=== PATIENT | male | born 1940 | race Caucasian/White ===

== ENCOUNTER 2017-07-31 10:14 | Observation (INO) | payer MEDICARE, SELFPAY ==
[2017-07-31] VITALS (7 sets, daily range): BP systolic 133–170; BP diastolic 70–91; PULSE 63–80; RESP 16–20; TEMP 36.3–36.8; O2SAT 94–96; BMI 25.9; BMI 24.9
--- NOTE | 2017-07-31 10:21 | NURSING ---
NO LW OR POA
[2017-07-31] MEDS: morphine 8 MG/ML Syringe IM (10:54)
--- NOTE | 2017-07-31 11:03 | CT_ITS ---
STUDY: CT LUMBAR SPINE WITH CONTRAST REASON FOR EXAM: Male, 77 years old. RT HIP PAIN, HAD CORTISONE SHOT FROM PAIN MGT FRIDAY, NOW UNABLE TO WALK, HX-HTN, PARKINSONS RADIATION DOSAGE (If Supplied By Facility): CTDIvol = ( 16.10 ) mGy, DLP = ( 616.78 ) mGycm TECHNIQUE: The patient was scanned in a multi detector CT scanner. High resolution transaxial imaging was performed following the intravenous administration of 100 ml of Isovue 300 contrast material. Images were obtained from T12 to sacrum. Sagittal and coronal images were reconstructed. Individualized dose optimization techniques were used for this CT. COMPARISON: None FINDINGS: There is a mildly exaggerated lumbar lordosis. There is a levoscoliosis of the upper lumbar spine. There is grade 1 anterolisthesis at L5-S1. There is retrolisthesis at L2-3 and L1-2. There is multilevel loss of disc height and endplate spondylosis. Vertebral body heights are maintained. There is multilevel facet arthropathy. T12/L1: No central canal or neural foraminal stenosis is demonstrated. L1/2: There is retrolisthesis and endplate spondylosis. There is no central canal stenosis. There is moderate bilateral neuroforaminal stenosis. L2/3: There is retrolisthesis and endplate spondylosis. There is mild central canal stenosis and mild bilateral neuroforaminal stenosis. L3/4: There is endplate spondylosis. There is no central canal stenosis. There is moderate left and mild right neuroforaminal stenosis. L4/5: There is endplate spondylosis. There is no central canal stenosis. There is severe left and moderate to severe right neuroforaminal stenosis. L5/S1: There is anterolisthesis. There is mild central canal stenosis and severe bilateral neuroforaminal stenosis. There is a bubble of gas in the central canal posterior to the L4 superior endplate. It could be iatrogenic from recent injection, although vacuum disc phenomenon is also possible. The prostate gland is enlarged. There is suggestion of a small lipoma in the left psoas muscle. CT/Spine Lumbar WITH Contrast IMPRESSION: There is a bubble of gas in the central canal posterior to the L4 superior endplate. It could be iatrogenic from recent injection, although vacuum disc phenomenon is also possible. There are multilevel degenerative changes. MRI provides better evaluation of disc disease, if clinically indicated. Electronically Signed: Brittany Chapin MD at 12:57 EDT , Service support ,
[2017-07-31 11:27] LABS: Erythrocyte Sedimentation Rate 4 mm/hr (0-20)
[2017-07-31 11:29] LABS: Absolute Lymphocyte Count 1.08 X10^3/ul (0.83-4.51); Absolute Neutrophil Count 6.7 X10^3/uL (2.0-7.7); Eosinophil# 0.01 X10^3/uL; Eosinophils% 0.1 % (0-5); Hematocrit 41.7 % (40-54); Hemoglobin 14.5 g/dl (13.0-16.5); Lymphocyte # 1.08 X10^3/ul (4.0); Lymphocyte % 13.8 % (19-41); Mean Corp Hgb Conc 34.8 g/gl (32-36); Mean Corpuscular Hgb 31.7 pg (27.0-32.0); Monocyte# 0.01 X10^3/uL; Monocyte% 0.1 % (0-10); Neutrophil # 6.71 X10^3/uL (2.7-7.7); Platelet Count 142 K/mm3 (150-450); RBC Distribution Width CV 11.8 % (11.6-14.6); Red Blood Count 4.58 M/mm3 (4.6-6.2); White Blood Count 7.8 K/mm3 (4.4-11.0)
[2017-07-31 11:30] LABS: POSITIVE COUNT NO; POSITIVE DIFFERENTIAL NO; POSITIVE MORPHOLOGY NO
[2017-07-31 11:57] LABS: Anion Gap 9 (5-15); BUN 25 mg/dL (7-18); BUN/Creat Ratio 26.7 RATIO (10-20); CRP < 2.90 mg/L (0.0-3.0); Calcium,Total 8.6 mg/dL (8.5-10.1); Chloride 93 mmol/L (98-107); Creatinine, Serum 0.94 mg/dL (0.70-1.30); EST Glomerular Filtration Rate 83 mL/min (>60); Est Glom Filt Rate - Afr Amer 100 mL/min (>60); Estimated Creatinine Clearance 59.39 ml/min; Glucose 108 mg/dL (74-106); Potassium 3.9 mmol/L (3.5-5.1); Sodium Level 130 mmol/L (136-145)
[2017-07-31] MEDS: 0.9% Normal Saline 1,000 ML 999 ML IV (13:20)
--- NOTE | 2017-07-31 13:44 | ED.VISSUMM ---
- ER Visit Summary Date of Service: 07/31/17 Chief Complaint: Right hip and leg pain History of Present Illness: The patient is a 77 M who presents with right hip and leg pain. He does have a history of chronic back pain. He has had previous epidural injections with relief. He had an epidural injection 9 days ago. He complains of worsening pain since that time and now reports that he is unable to ambulate. He complains of paresthesias in the right leg as well as weakness. No abdominal pain. No fevers. No urinary retention or fecal incontinence. Physical Examination: Afebrile vitals are normal Heart regular rate and rhythm Lungs clear Abdomen soft nontender to palpation 5 out of 5 knee flexion knee extension dorsiflexion and plantar flexion and extensor hallucis longus he reports decreased sensation in the L4 and L5 dermatomes but is able to tell that I am touching him he has brisk capillary refills I was unable to easily palpate a dorsalis pedis pulse however he does have a strong Doppler signal for the posterior tibialis Test Results: Labs notable for sodium 130 otherwise normal CRP less than 2.9. CT of the lumbar spine shows a bubble of gas in the central canal posterior to L4 most likely iatrogenic from recent injection. Emergency Department Course and Treatment: I spoke to Dr. Weldon regarding the patient's presentation. He is not a candidate for an MRI due to his deep brain stimulator. Did obtain a CT of the lumbar spine which showed a bubble of gas in the central canal posterior to L4 which is likely related to his recent injection. We had planned to send him home on oral pain medications. At this time family did reveal that they have actually been giving him oxycodone at home. The patient was unable to ambulate even despite a reported 50% improvement with intramuscular morphine. We spoke to case management. They will be able to place the patient in rehab but he will require precertification so will need to be placed in hospital observation. Treatment Plan: [] Disposition: Admit Impression: Lumbar radiculopathy Inability to ambulate This note was generated with [employer] dictation software. It may contain incorrect words, spelling, and punctuation that were not noted in review of the chart prior to signing ED Disposition - Plan for ED Patient: Chief Complaint: Lower Extremity Injury Referrals: Margarito Mata MD [Primary Care Provider] -
--- NOTE | 2017-07-31 13:50 | CASEMGMT ---
Social Work Note Referral from Dr. Santos d/t pt's inability to ambulate and recommendation for rehab. Discuss that pt would need to be admitted under obs for placement as his insurance requires pre-cert and this will not be obtained today. Physician will discuss case with hospitalist. Face to face with the pt, his and their daughter. Pt reports a sharp pain in his hip following an injection last week. States his appetite has decreased and reports an inability to walk for 3 days and has continued into today. Nursing tried to ambulate the pt and he was not able to even move the walker to take a step d/t pain. Discuss the above information and pt and family are agreeable to consider placement if insurance would cover. Discuss that insurance requires pre-certification that is dictated by an RN reviewer at his insurance company once clinicals are submitted. Understanding expressed. Educated to RU and TCU at [facility] and their first choice is RU and second is TCU. Placed call to Rosita and left indicating this information. SW on assigned unit to f/u with discharge planning. Plan: Rehab pending acceptance and pre-cert. Lucia Reyes, [employer] MAINTENANCE, DATA CENTER ARCHITECT
--- NOTE | 2017-07-31 13:53 | NURSING ---
MED SURGE LUMBAR RADICULOPATHY FRANCOIS
--- NOTE | 2017-07-31 14:05 | HP.PCM_ITS ---
Problem List (1) Chronic back pain Status: Chronic (2) Status post deep brain stimulator placement Status: Chronic (3) Parkinsons disease Status: Chronic (4) Hypertension Status: Chronic (5) History of atrial fibrillation Status: Chronic History of Present Illness Date of Admission: 07/31/17 Chief Complaint: Right hip pain. The patient is a 77 year old M with past medical history as mentioned above presented to the emergency room because of right hip pain. He had a history of chronic back pain and he received epidural lumbar injection [address] Weldon and since then, he has been having difficulties ambulating, not able to get up and not able to walk even with using a walker. Over the last 2 days, he started having right hip pain, described as sharp shooting pain, intermittent, 8 out of 10 in severity, goes down to his right thigh and right leg, associated with minimal numbness on the right foot and without aggravating or relieving factors. He denied bowel or bladder incontinence. He did mention that his chronic back pain seemed under control but what makes his situation more difficult as the right hip pain. He denied mechanical fall or trauma. In the emergency department, his vital signs were stable. His routine blood work was remarkable for sodium of 130 and BUN of 25, otherwise normal. CT scan of the lumbar spine with contrast revealed bubbly gas in the central posterior canal of L4 superior endplate which likely due to the recent injection, multiple degenerative changes. MRI cannot be done because patient has brain stimulator. He is being admitted for intractable low back pain due to lumbar radiculopathy with the physical debility and functional decline. Past Medical History Past Medical History (Chronic Problems): Chronic Problems Chronic back pain (Chronic) Status post deep brain stimulator placement (Chronic) Parkinsons disease (Chronic) Hypertension (Chronic) History of atrial fibrillation (Chronic) Allergies No Known Allergies Allergy (Verified 07/31/17 10:22) Home Medications: Ambulatory Orders Medication Instructions Recorded Aspirin [Aspirin, Baby] 81 mg PO DAILY@0800 07/23/14 Atenolol [Tenormin] 50 mg PO BID 07/23/14 Surgical History: - - Placement of brain stimulator. Psychiatric History: No pertinent psych hx Lives: Spouse/ Significant Other Smoking Status: Never smoker Alcohol: None Drugs: None - *Family History Maternal History Items: No pertinent history Paternal History Items: No pertinent history Review of Systems Constitutional: Reports: Weakness. Denies: Anorexia, Chills, Fever Eyes: Denies: Blurred vision, Double vision, Drainage, Redness HEENT: Denies: Difficulty Hearing, Ear Pain, Eye Pain, Nasal Congestion, Sore Throat Cardiovascular: Denies: Chest Pain, Chest Pressure, Chest Tightness, Palpitations, Syncope Respiratory: Denies: Cough, Pleuritic Pain, Shortness of Breath, Sputum production, Wheezing Gastrointestinal: Denies: Abdominal Pain, Constipation, Diarrhea, Nausea, Vomiting Genitourinary: Denies: Dysuria, Frequency, Hematuria Musculoskeletal: Reports: Back Pain, Joint Pain, Leg Pain. Denies: Arm Pain, Foot Pain, Hand Pain Skin: Denies: Dryness, Rash Neurological: Reports: Numbness. Denies: Balance problems, Double vision, Change in Speech, Slurred speech, Headaches, Incoordination Psychiatric: Denies: Anxiety, Depression Endocrine: Denies: Change in Body Habitus, Polydipsia VTE Information - Inpt Only VTE Present on Admission: No VTE Mechan Device Prophylaxis: None VTE Pharm Prophylaxis ordered?: Yes - Physical Exam General: Alert, Oriented x3, Cooperative, No apparent distress, - HEENT: Atraumatic, PERRLA, EOMI, Normocephalic Oral: Moist Mucosa, No Gingival or Mucosal Lesions/ Ulcerations Neck: Supple, No JVD, Negative Carotid Bruits, Trachea Midline, Thyroid Normal Size and Texture Lungs: Clear to auscultation, No rhonchi, No wheeze, No rales, Diminished Cardiovascular: Regular rate, Regular Rhythm, Normal S1, Normal S2, PMI Normal Abdomen: Bowel Sounds Present, Soft, Non Tender, Non-Distended, No Hepato- splenomegaly Extremities: No clubbing, No cyanosis, No edema Skin: No rashes, No breakdown Lymphatic: No Cervical, Supraclavicular, or Inguinal Adenopathy Neurological: Cranial nerves II-XII grossly intact, Motor Exam 5/5 strength throughout Psych/Mental Status: Normal Affect, Appropriate, Alert and oriented to time, place, person, mood and affect Vital Signs Temp Pulse Resp BP Pulse Ox 97.3 F L 71 16 170/91 H 96 07/31/17 10:15 07/31/17 13:19 07/31/17 13:19 07/31/17 13:19 07/31/17 10:15 Oxygen Delivery Method Room Air Weight: 161 lb 2.526 oz Body Mass Index (BMI) 25.9 Laboratory Tests Past 24 Hrs 07/31/17 07/31/17 11:15 11:15 WBC 7.8 RBC 4.58 L Hgb 14.5 Hct 41.7 MCV 91.0 MCH 31.7 MCHC 34.8 RDW 11.8 RDW Differential 39.0 Plt Count 142 L MPV 10.0 Immature Gran % (Auto) 0.000 Neut % (Auto) 86.0 H Lymph % (Auto) 13.8 L [place] % (Auto) 0.1 Eos % (Auto) 0.1 Baso % (Auto) 0.0 Absolute Neuts (auto) 6.7 Absolute Lymphs (auto) 1.08 Total Counted Not Reportable ESR 4 Sodium 130 L Potassium 3.9 Chloride 93 L Carbon Dioxide 28.0 Anion Gap 9 BUN 25 H Creatinine 0.94 Estim Creat Clear Calc 59.39 Est GFR (MDRD) Af Amer 100 Est GFR (MDRD) Non-Af 83 BUN/Creatinine Ratio 26.7 H Glucose 108 H Calcium 8.6 C-React Prot Ext Range < 2.90 Clinical Impression(s) from Imaging Studies Lumbar Spine CT 07/31/17 11:03 IMPRESSION: There is a bubble of gas in the central canal posterior to the L4 superior endplate. It could be iatrogenic from recent injection, although vacuum disc phenomenon is also possible. There are multilevel degenerative changes. MRI provides better evaluation of disc disease, if clinically indicated. Electronically Signed: Brittany Chapin MD at 12:57 EDT , Service support , Assessment/Plan This is a 77 years old male patient presented to the emergency room because of right hip pain as well as chronic back pain, difficulty ambulating and functional decline, found to have multilevel degenerative changes of the lumbar spine as well as lumbar radiculopathy and he is being admitted for intractable low back pain due to lumbar radiculopathy complicated by difficulty ambulating and functional decline. #1 right hip pain/lumbar radiculopathy/chronic back pain: CT scan of the lumbar spine reviewed as above. No comment on the right hip region. This patient has history of chronic back pain, received epidural steroid injection 9 days ago. He received his first epidural injection back in April, and he did mention that helped his pain significantly but this time with the recent injection, it is not helping and the pain is worsening. MRI lumbar spine cannot be done because he has brain stimulator. He does have some numbness on the right foot but no focal motor deficit and this is chronic. [facility], cardiac monitoring, ambulate as tolerated, IV morphine as needed for pain, OxyIR as needed for pain, x-ray right hip, repeat BMP tomorrow morning, PT OT evaluation and treatment, social services aide and case management consult for probable placement to senior living facility. #2 hyponatremia: Seems to be hypovolemic hyponatremia due to mild dehydration as indicated by slightly elevated BUN. Plan: We will check plasma osmolality, urine is blood, urine sodium and chloride, IV fluids, repeat BMP tomorrow morning. #3 history of atrial fibrillation: Status post ablation ?2, is in sinus rhythm, rate is controlled. Plan to continue atenolol for rate control, he is not on anticoagulation. #4 Parkinson's disease: Status post placement of deep brain stimulator on the right side. #5 hypertension: Blood pressure stable, continue atenolol and aspirin. #6 DVT prophylaxis: Subcu Lovenox. This note was generated with [employer] dictation software. It may contain incorrect words, spelling, and punctuation that were not noted in checking the note before signing. Code Visit Inpatient E&M: 71641 Init Hosp L3
--- NOTE | 2017-07-31 14:05 | NURSING ---
306 INTRACTABLE LOW BACK PAIN, DIFFICULTY AMBULATING, PHYSICAL DEBILITY ASHELFAH
--- NOTE | 2017-07-31 14:56 | RAD_ITS ---
STUDY: X-RAY - PELVIS AND RIGHT HIP REASON FOR EXAM: Male, 77 years old. Pain, hip and lower back pain. TECHNIQUE: Radiological exam, hip, unilateral, with pelvis when performed; 2 or 3 views. COMPARISON: None. FINDINGS: There is a non-specific bowel gas pattern. Normal visualized soft tissue structures. There is narrowing with cortical sclerosis of the sacroiliac joint consistent with degenerative osteoarthritic changes. Normal bilateral superior and inferior pubic rami. There is narrowing with sclerosis of the pubic symphysis. There are degenerative changes of the hips bilaterally. RAD/Hip 2-3 Views with Pelvis IMPRESSION: Degenerative changes. Electronically Signed: Meme Isaacs MD at 15:44 EDT Tel , Service support ,
[2017-07-31] MEDS: 0.9% NaCl Peripheral Flush Adult/Peds IV (16:13)
[2017-07-31] MEDS: 0.9% Normal Saline 1,000 ML 100 ML IV (16:13)
[2017-07-31 17:01] LABS: Urine Sodium 88 mmol/L (Not Establ.)
[2017-07-31 17:12] LABS: Urine Chloride 84 mmol/L (Not Establ.)
[2017-07-31 18:03] LABS: Osmolality, Urine 402 mOsm/KG
[2017-07-31 19:36] LABS: Osmolality, Serum 274 mOsm/KG (280-301)
[2017-07-31] MEDS: Docusate Sodium 100 MG Capsule PO (23:21)
[2017-07-31] MEDS: Atenolol 25 MG Tablet 50 MG PO (23:21)
[2017-07-31] MEDS: Carbidopa/Levodopa 25/100 Tablet PO (23:22)
[2017-07-31] MEDS: Doxazosin 1 MG Tablet 2 MG PO (23:22)
[2017-08-01] VITALS (13 sets, daily range): BP systolic 126–148; BP diastolic 73–84; PULSE 57–67; RESP 18; TEMP 36.6–37.1; O2SAT 93–98
[2017-08-01 06:00] LABS: Absolute Lymphocyte Count 0.86 X10^3/ul (0.83-4.51); Absolute Neutrophil Count 4.4 X10^3/uL (2.0-7.7); Basophil# 0.01 X10^3/uL; Basophil% 0.2 % (0-1); Eosinophil# 0.02 X10^3/uL; Eosinophils% 0.3 % (0-5); Hematocrit 40.2 % (40-54); Hemoglobin 13.7 g/dl (13.0-16.5); Lymphocyte # 0.86 X10^3/ul (4.0); Lymphocyte % 14.4 % (19-41); Mean Corp Hgb Conc 34.1 g/gl (32-36); Mean Corpuscular Hgb 31.6 pg (27.0-32.0); Mean Corpuscular Volume 92.6 fL (80-94); Mean Platelet Vol. 9.8 fl (6.2-12.0); Monocyte# 0.69 X10^3/uL; Monocyte% 11.5 % (0-10); Neutrophil % 73.4 % (47-70); Platelet Count 147 K/mm3 (150-450); RBC Distribution Width CV 11.9 % (11.6-14.6); RBC Distribution Width SD 40.9 fl (35.1-43.9); Red Blood Count 4.34 M/mm3 (4.6-6.2)
[2017-08-01 06:08] LABS: POSITIVE COUNT NO; POSITIVE DIFFERENTIAL NO; POSITIVE MORPHOLOGY NO
[2017-08-01] MEDS: Carbidopa/Levodopa 25/100 Tablet PO ×3 (06:23→16:34)
[2017-08-01 06:24] LABS: Anion Gap 5 (5-15); BUN 21 mg/dL (7-18); BUN/Creat Ratio 23.1 RATIO (10-20); Calcium,Total 8.2 mg/dL (8.5-10.1); Chloride 98 mmol/L (98-107); Creatinine, Serum 0.91 mg/dL (0.70-1.30); EST Glomerular Filtration Rate 86 mL/min (>60); Est Glom Filt Rate - Afr Amer 104 mL/min (>60); Estimated Creatinine Clearance 61.35 ml/min; Glucose 88 mg/dL (74-106); Sodium Level 131 mmol/L (136-145)
[2017-08-01] MEDS: Aspirin 81 MG TAB.CHEW PO (07:57)
[2017-08-01] MEDS: Docusate Sodium 100 MG Capsule PO (10:38)
[2017-08-01] MEDS: Atenolol 25 MG Tablet 50 MG PO ×2 (10:38→21:50)
[2017-08-01] MEDS: Enoxaparin 40 MG/0.4 ML Syringe SC (10:39)
--- NOTE | 2017-08-01 12:25 | CASEMGMT ---
Social Work Note BOOM placed a call to Rosita with inpatient rehab/TCU. Rosita confirms that she got the referral and will discuss the case with Dr. Busby. Rosita states that she will let this worker know what Dr. Busby with inpatient rehab decides if they are able to accept pt or not. Rosita states that if Dr. Busby is unable to accept pt, then she will submit pre-cert for TCU. BOOM will continue to follow along and assist with discharge planning. Plan: Inpatient rehab vs. TCU Brit Kline RADIOLOGY SUPERVISOR, CREW BOAT OPERATOR
[2017-08-01] MEDS: oxyCODONE 5 MG Tablet PO (14:29)
--- NOTE | 2017-08-01 15:03 | CASEMGMT ---
BYERS form completed with patient at this time. Patient voiced no questions or concerns at this time and voiced understanding. Patient signed BYERS form and copy provided along with Medicare Inpatient vs Outpatient information packet. Original BYERS filed on chart.
--- NOTE | 2017-08-01 16:03 | PCM.PN.HOSP ---
Subjective: Patient was seen and examined. He complains of pain radiating from his buttocks down his legs. Admits to having had low back injection by Dr. Weldon about a week ago. Denies any fever or chills. Unable to have MRI because of his brain stimulator. Vitals/I&O's: Vital Signs Temp Pulse Resp BP Pulse Ox 98.6 F 67 18 139/79 H 98 08/01/17 07:56 08/01/17 14:00 08/01/17 07:56 08/01/17 07:56 08/01/17 07:56 Oxygen Delivery Method Room Air Weight: 70.1 kg Body Mass Index (BMI) 24.9 Intake and Output for Last 24 Hours 07/30/17 07/31/17 08/01/17 23:59 23:59 23:59 Intake Total 2372 / 2372 Output Total 300 / 300 1325 / 1325 Balance -300 / -300 1047 / 1047 General: Alert, Oriented x3, Cooperative, No apparent distress HEENT: Atraumatic, PERRLA, EOMI, Normocephalic Oral: Moist Mucosa Neck: Supple Lungs: Clear to auscultation, Normal air movement Cardiovascular: Regular rate, Regular Rhythm, Normal S1, Normal S2, No murmurs Abdomen: Bowel Sounds Present, Soft, Non Tender, Non-Distended, No Hepato-splenomegaly Extremities: No edema Skin: No rashes, No breakdown Musculoskeletal: No Tenderness to Palpation of Joints or Extremities Lymphatic: No Cervical, Supraclavicular, or Inguinal Adenopathy Neurological: Cranial nerves II-XII grossly intact, Motor Exam 5/5 strength throughout Psych/Mental Status: Normal Affect, Appropriate Laboratory Results 07/31/17 16:30: Urine Osmolality 402 07/31/17 16:30: Urine Creatinine 35.90 07/31/17 16:30: Urine Chloride 84 07/31/17 16:30: Ur Random Sodium 88 07/31/17 18:03: Serum Osmolality 274 L 08/01/17 05:30: WBC 6.0, RBC 4.34 L, Hgb 13.7, Hct 40.2, MCV 92.6, MCH 31.6, MCHC 34.1, RDW 11.9, RDW Differential 40.9, Plt Count 147 L, MPV 9.8, Immature Gran % (Auto) 0.200, Neut % (Auto) 73.4 H, Lymph % (Auto) 14.4 L, [place] % (Auto) 11.5 H, Eos % (Auto) 0.3, Baso % (Auto) 0.2, Absolute Neuts (auto) 4.4, Absolute Lymphs (auto) 0.86, Total Counted Not Reportable 08/01/17 05:30: Sodium 131 L, Potassium 4.0, Chloride 98, Carbon Dioxide 28.0, Anion Gap 5, BUN 21 H, Creatinine 0.91, Estim Creat Clear Calc 61.35, Est GFR (MDRD) Af Amer 104, Est GFR (MDRD) Non-Af 86, BUN/Creatinine Ratio 23.1 H, Glucose 88, Calcium 8.2 L Current Medications Aspirin (Aspirin, Baby) 81 mg PO DAILY@0800 [facility] Last Admin: 08/01/17 07:57 Dose: 81 mg Atenolol (Tenormin (Beta Ebenezer)) 50 mg PO BID [facility] Last Admin: 08/01/17 10:38 Dose: 50 mg Carbidopa/Levodopa (Sinemet) 1 tablet PO TIDAC [facility] Last Admin: 08/01/17 11:57 Dose: 1 tablet Docusate Sodium (Colace) 100 mg PO BID [facility] Last Admin: 08/01/17 10:38 Dose: 100 mg Doxazosin Mesylate (Cardura) 2 mg PO QHS [facility] Last Admin: 07/31/17 23:22 Dose: 2 mg Enoxaparin Sodium (Lovenox) 40 mg SC DAILY@1000 [facility] Last Admin: 08/01/17 10:39 Dose: 40 mg Magnesium Hydroxide (Milk Of Magnesia) 30 ml PO DAILY PRN PRN PRN Reason: Constipation Magnesium Hydroxide (Milk Of Magnesia) 30 ml PO BID PRN PRN Reason: Constipation Morphine Sulfate () 1 - 2 mg IV Q4H PRN PRN PRN Reason: SEVERE PAIN (6-10/10) Non-Formulary Medication (Parsitan) 1 tab PO TID [facility] Last Admin: 08/01/17 13:27 Dose: 1 tab Oxycodone HCl (Oxyir) 5 mg PO Q6H PRN PRN PRN Reason: SEVERE PAIN (6-10/10) Last Admin: 08/01/17 14:29 Dose: 5 mg Senna/Docusate Sodium (Senokot-S, Josie-Colace) 2 tablet PO BID PRN PRN Reason: Constipation Sodium Chloride () 5 - 30 ml IV UD PRN PRN Reason: SALINE FLUSH Last Admin: 07/31/17 16:13 Dose: 10 ml Medical Necessity - Tobacco Use Smoking Status: Never smoker Assessment/Plan 77 years old male with past medical history of chronic back pain, follows with Dr. Weldon in the outpatient, admitted with right hip pain as well as acute on chronic back pain, difficulty ambulating and functional decline, found to have multilevel degenerative changes of the lumbar spine as well as lumbar radiculopathy and he is being admitted for intractable low back pain due to lumbar radiculopathy complicated by difficulty ambulating and functional decline. 1. Intractable right hip pain/lumbar radiculopathy/chronic back pain, CT of the lumbar spine showed multilevel degenerative changes, patient is on oxycodone, will continue on the same medications, will continue PT and OT evaluation, will add neurontin 100mg po tid 2. hyponatremia, hypotonic, likely hypovolemic hyponatremia, mildly improved, no previous sodium to compare, urine osmolality is 402, random urine sodium is 88, will continue to monitor BMP, if sodium does not improve much, will check for a.m. cortisol and ACTH stimulation test. 3. PAF, normal sinus rhythm, not on anticoagulation, status post ablation ?2, continue on atenolol 4. Parkinson's disease, status post placement of deep brain stimulator on the right side, on Sinemet. 5. Hypertension, controlled, continue atenolol and aspirin. 6. DVT prophylaxis: Subcu Lovenox. Code Visit Inpatient E&M: 37924 Subs Hosp L2
[2017-08-01] MEDS: Gabapentin 100 MG Capsule PO (17:45)
[2017-08-01] MEDS: Doxazosin 1 MG Tablet 2 MG PO (21:50)
[2017-08-02] VITALS (13 sets, daily range): BP systolic 121–161; BP diastolic 61–88; PULSE 51–74; RESP 16–20; TEMP 36.5–37.1; O2SAT 96–99
[2017-08-02] MEDS: Carbidopa/Levodopa 25/100 Tablet PO ×3 (06:22→18:08)
[2017-08-02] MEDS: oxyCODONE 5 MG Tablet PO ×2 (08:22→18:07)
[2017-08-02] MEDS: Aspirin 81 MG TAB.CHEW PO (08:23)
[2017-08-02] MEDS: Gabapentin 100 MG Capsule PO ×3 (08:23→18:09)
[2017-08-02] MEDS: Docusate Sodium 100 MG Capsule PO ×2 (08:24→20:43)
[2017-08-02] MEDS: Enoxaparin 40 MG/0.4 ML Syringe SC (08:24)
--- NOTE | 2017-08-02 08:43 | PCM.PN.HOSP ---
Subjective: Patient was seen and examined. Pain is present but slightly better. Waiting on transfer to SNF. Denies any fever or chills or dizziness Objective: Physical exam: Vitals/I&O's: Vital Signs Temp Pulse Resp BP Pulse Ox 98.7 F 56 L 20 H 130/79 H 99 08/02/17 08:26 08/02/17 08:26 08/02/17 08:26 08/02/17 08:26 08/02/17 08:26 Oxygen Delivery Method Room Air Weight: 70.1 kg Body Mass Index (BMI) 24.9 Intake and Output for Last 24 Hours 07/31/17 08/01/17 08/02/17 23:59 23:59 23:59 Intake Total 2922 / 2922 240 / 240 Output Total 300 / 300 1325 / 1325 Balance -300 / -300 1597 / 1597 240 / 240 Current Medications Aspirin (Aspirin, Baby) 81 mg PO DAILY@0800 [facility] Last Admin: 08/02/17 08:23 Dose: 81 mg Atenolol (Tenormin (Beta Ebenezer)) 50 mg PO BID [facility] Last Admin: 08/01/17 21:50 Dose: 50 mg Carbidopa/Levodopa (Sinemet) 1 tablet PO TIDAC [facility] Last Admin: 08/02/17 06:22 Dose: 1 tablet Docusate Sodium (Colace) 100 mg PO BID [facility] Last Admin: 08/02/17 08:24 Dose: 100 mg Doxazosin Mesylate (Cardura) 2 mg PO QHS [facility] Last Admin: 08/01/17 21:50 Dose: 2 mg Enoxaparin Sodium (Lovenox) 40 mg SC DAILY@1000 [facility] Last Admin: 08/02/17 08:24 Dose: 40 mg Gabapentin (Neurontin) 100 mg PO TIDCM [facility] Last Admin: 08/02/17 08:23 Dose: 100 mg Magnesium Hydroxide (Milk Of Magnesia) 30 ml PO DAILY PRN PRN PRN Reason: Constipation Magnesium Hydroxide (Milk Of Magnesia) 30 ml PO BID PRN PRN Reason: Constipation Morphine Sulfate () 1 - 2 mg IV Q4H PRN PRN PRN Reason: SEVERE PAIN (6-10/10) Non-Formulary Medication (Parsitan) 1 tab PO TID [facility] Last Admin: 08/02/17 06:22 Dose: 1 tab Oxycodone HCl (Oxyir) 5 mg PO Q6H PRN PRN PRN Reason: SEVERE PAIN (6-10/10) Last Admin: 08/02/17 08:22 Dose: 5 mg Senna/Docusate Sodium (Senokot-S, Josie-Colace) 2 tablet PO BID PRN PRN Reason: Constipation Sodium Chloride () 5 - 30 ml IV UD PRN PRN Reason: SALINE FLUSH Last Admin: 07/31/17 16:13 Dose: 10 ml Medical Necessity - Tobacco Use Smoking Status: Never smoker Assessment/Plan 77 years old male with past medical history of chronic back pain, follows with Dr. Weldon in the outpatient, admitted with right hip pain as well as acute on chronic back pain, difficulty ambulating and functional decline, found to have multilevel degenerative changes of the lumbar spine as well as lumbar radiculopathy and he is being admitted for intractable low back pain due to lumbar radiculopathy complicated by difficulty ambulating and functional decline. 1. Intractable right hip pain/lumbar radiculopathy/chronic back pain, CT of the lumbar spine showed multilevel degenerative changes, Pain is fairly controlled, on oxycodone and neurontin 100mg po tid. 2. Hyponatremia, hypotonic, likely hypovolemic hyponatremia, improved, will continue to monitor. 3. PAF, normal sinus rhythm, not on anticoagulation, status post ablation ?2, on atenolol, will continue to monitor. 4. Parkinson's disease, status post placement of deep brain stimulator on the right side, on Sinemet. 5. Hypertension, controlled, continue atenolol and aspirin. 6. DVT prophylaxis -Subcu Lovenox. Code Visit Inpatient E&M: 81764 Subs Hosp L2
[2017-08-02 09:43] LABS: Anion Gap 4 (5-15); BUN 23 mg/dL (7-18); BUN/Creat Ratio 25.1 RATIO (10-20); Calcium,Total 8.8 mg/dL (8.5-10.1); Chloride 99 mmol/L (98-107); Creatinine, Serum 0.92 mg/dL (0.70-1.30); EST Glomerular Filtration Rate 85 mL/min (>60); Est Glom Filt Rate - Afr Amer 103 mL/min (>60); Estimated Creatinine Clearance 60.68 ml/min; Glucose 102 mg/dL (74-106); Potassium 3.8 mmol/L (3.5-5.1); Sodium Level 132 mmol/L (136-145)
[2017-08-02] MEDS: Atenolol 25 MG Tablet 50 MG PO ×2 (12:32→20:43)
[2017-08-02] MEDS: Doxazosin 1 MG Tablet 2 MG PO (20:43)
[2017-08-03] VITALS (10 sets, daily range): BP systolic 125–154; BP diastolic 63–89; PULSE 54–72; RESP 16–20; TEMP 36.6–36.9; O2SAT 92–98
[2017-08-03] MEDS: oxyCODONE 5 MG Tablet PO ×3 (03:32→22:12)
[2017-08-03] MEDS: Carbidopa/Levodopa 25/100 Tablet PO ×3 (06:32→16:52)
[2017-08-03 07:05] LABS: Anion Gap 9 (5-15); BUN 24 mg/dL (7-18); BUN/Creat Ratio 23.3 RATIO (10-20); Calcium,Total 8.4 mg/dL (8.5-10.1); Chloride 102 mmol/L (98-107); Creatinine, Serum 1.03 mg/dL (0.70-1.30); EST Glomerular Filtration Rate 74 mL/min (>60); Est Glom Filt Rate - Afr Amer 90 mL/min (>60); Glucose 108 mg/dL (74-106); Potassium 3.8 mmol/L (3.5-5.1); Sodium Level 138 mmol/L (136-145)
[2017-08-03] MEDS: Enoxaparin 40 MG/0.4 ML Syringe SC (10:18)
[2017-08-03] MEDS: Aspirin 81 MG TAB.CHEW PO (10:18)
[2017-08-03] MEDS: morphine SR 15 MG Tablet PO ×2 (10:18→20:46)
[2017-08-03] MEDS: Atenolol 25 MG Tablet 50 MG PO ×2 (10:20→20:45)
[2017-08-03] MEDS: Senna/Docusate Sodium 1 Tablet 2 TABLET PO (10:20)
[2017-08-03] MEDS: Gabapentin 300 MG Capsule PO ×2 (10:21→16:52)
--- NOTE | 2017-08-03 14:12 | PN_ITS ---
Subjective: Patient was seen and examined. Still complains of severe pain. Recently been given some pain medicines. Pain still shoots from his hip down the legs. Denies any fever or chills. Moved his bowels 2 days ago. Feels to move his bowels today to. Denies any nausea or vomiting Objective: Physical exam: General: Alert, Oriented x3, Cooperative, No apparent distress HEENT: Atraumatic, PERRLA, EOMI, Normocephalic Oral: Moist Mucosa Neck: Supple Lungs: Clear to auscultation, Normal air movement Cardiovascular: Regular rate, Regular Rhythm, Normal S1, Normal S2, No murmurs Abdomen: Bowel Sounds Present, Soft, Non Tender, Non-Distended, No Hepato- splenomegaly Extremities: No edema Skin: No rashes, No breakdown Musculoskeletal: No Tenderness to Palpation of Joints or Extremities Lymphatic: No Cervical, Supraclavicular, or Inguinal Adenopathy Neurological: Cranial nerves II-XII grossly intact, Motor Exam 5/5 strength throughout, coarse tremors of the left upper extremity Psych/Mental Status: Normal Affect, Appropriate Vitals/I&O's: Vital Signs Temp Pulse Resp BP Pulse Ox 98.2 F 65 18 154/89 H 97 08/03/17 10:22 08/03/17 10:22 08/03/17 10:22 08/03/17 10:22 08/03/17 10:22 Oxygen Delivery Method Room Air Weight: 70.1 kg Body Mass Index (BMI) 24.9 Intake and Output for Last 24 Hours 08/01/17 08/02/17 08/03/17 23:59 23:59 23:59 Intake Total 2922 / 2922 540 / 540 300 / 300 Output Total 1325 / 1325 200 / 200 300 / 300 Balance 1597 / 1597 340 / 340 0 / 0 Laboratory Results 08/03/17 05:23: Sodium 138, Potassium 3.8, Chloride 102, Carbon Dioxide 27.0, Anion Gap 9, BUN 24 H, Creatinine 1.03, Estim Creat Clear Calc 54.20, Est GFR ( MDRD) Af Amer 90, Est GFR (MDRD) Non-Af 74, BUN/Creatinine Ratio 23.3 H, Glucose 108 H, Calcium 8.4 L Current Medications Aspirin (Aspirin, Baby) 81 mg PO DAILY@0800 [facility] Last Admin: 08/03/17 10:18 Dose: 81 mg Atenolol (Tenormin (Beta Ebenezer)) 50 mg PO BID [facility] Last Admin: 08/03/17 10:20 Dose: 50 mg Carbidopa/Levodopa (Sinemet) 1 tablet PO TIDAC [facility] Last Admin: 08/03/17 12:56 Dose: 1 tablet Doxazosin Mesylate (Cardura) 2 mg PO QHS [facility] Last Admin: 08/02/17 20:43 Dose: 2 mg Enoxaparin Sodium (Lovenox) 40 mg SC DAILY@1000 [facility] Last Admin: 08/03/17 10:18 Dose: 40 mg Gabapentin (Neurontin) 300 mg PO TIDCM [facility] Last Admin: 08/03/17 10:21 Dose: 300 mg Magnesium Hydroxide (Milk Of Magnesia) 30 ml PO BID PRN PRN Reason: Constipation Morphine Sulfate (Ms Contin) 15 mg PO BID [facility] Last Admin: 08/03/17 10:18 Dose: 15 mg Morphine Sulfate () 1 mg IV Q4H PRN PRN PRN Reason: SEVERE PAIN (6-10/10) Non-Formulary Medication (Parsitan) 1 tab PO TID [facility] Last Admin: 08/03/17 12:56 Dose: 1 tab Oxycodone HCl (Oxyir) 5 mg PO Q6H PRN PRN PRN Reason: SEVERE PAIN (6-10/10) Last Admin: 08/03/17 10:20 Dose: 5 mg Polyethylene Glycol (Miralax) 17 gm PO DAILY PRN PRN Reason: Constipation Senna/Docusate Sodium (Senokot-S, Josie-Colace) 2 tablet PO BID PRN PRN Reason: Constipation Last Admin: 08/03/17 10:20 Dose: 2 tablet Sodium Chloride () 5 - 30 ml IV UD PRN PRN Reason: SALINE FLUSH Last Admin: 07/31/17 16:13 Dose: 10 ml Medical Necessity - Tobacco Use Smoking Status: Never smoker Assessment/Plan 77 years old male with past medical history of chronic back pain, follows with Dr. Weldon in the outpatient, admitted with right hip pain as well as acute on chronic back pain, difficulty ambulating and functional decline, found to have multi-level degenerative changes of the lumbar spine as well as lumbar radiculopathy. functional decline. 1. Intractable right hip pain/lumbar radiculopathy/chronic back pain, very mildly improving, on oxycodone and neurontin 100mg po tid. Recently had an epidural injection by Dr. Weldon. Dr. Weldon consulted. CT of the lumbar spine showed multilevel degenerative changes, cannot do an MRI because patient has a brain stimulator. Would add long-acting oxycodone; MS Contin 50 mg p.o. twice daily and continue with as needed oxycodone, increase gabapentin to 300mg po tid, add prophylactic stool softeners. 2. Hyponatremia, hypotonic, likely hypovolemic hyponatremia, resolved 3. PAF, normal sinus rhythm, not on anticoagulation, status post ablation ?2, on atenolol, will continue to monitor. 4. Parkinson's disease, status post placement of deep brain stimulator on the right side, on Sinemet. 5. Hypertension, controlled, continue atenolol and aspirin. 6. DVT prophylaxis -Subcu Lovenox. 7. Disposition: DC to SNF when bed is ready Code Visit Inpatient E&M: 03946 Subs Hosp L2
[2017-08-03] MEDS: Doxazosin 1 MG Tablet 2 MG PO (20:45)
[2017-08-04] VITALS (13 sets, daily range): BP systolic 106–172; BP diastolic 61–95; PULSE 22–79; RESP 16–18; TEMP 36.4–37.1; O2SAT 94–98
--- NOTE | 2017-08-04 00:20 | NURSING ---
Tele alarming, HR 22. Pt sleeping at this time. When pt was woke up heart rate went to 52. Vitals obtained and charted. Dr. Putnam notifed, ordered to hold all pain, BP and heart medication at this time.
[2017-08-04] MEDS: Carbidopa/Levodopa 25/100 Tablet PO ×3 (06:31→16:50)
[2017-08-04] MEDS: Aspirin 81 MG TAB.CHEW PO (08:14)
[2017-08-04] MEDS: Senna/Docusate Sodium 1 Tablet 2 TABLET PO (08:14)
[2017-08-04] MEDS: Gabapentin 300 MG Capsule PO ×3 (08:18→16:50)
--- NOTE | 2017-08-04 09:34 | CASEMGMT ---
Social Work Note SW placed a call to Rosita in TCU and left her a message asking for update in regards to pt for placement. BOOM waiting for call back from Rosita. Plan: Inpatient rehab vs. TCU Brit Kline MSW, GROUP CHIEF OPERATOR
--- NOTE | 2017-08-04 10:05 | CASEMGMT ---
Social Work Note SW received message from Rosita in TCU stating that pt was denied for inpatient rehab and that she will submit pre-cert for TCU. Plan: TCU pending pre-cert Brit BENTLEY, COMMISSARY SUPERINTENDENT
[2017-08-04] MEDS: Enoxaparin 40 MG/0.4 ML Syringe SC (11:34)
--- NOTE | 2017-08-04 13:45 | PN_ITS ---
Subjective: Patient is a 77-year-old male who was admitted to [facility] with a complaint of intractable right leg pain. He had a recent Epidural by Dr. Weldon chronic low back pain and states that the severe pain started approximately 1 hour after the epidural. The pain is tolerable when lying in bed and when sitting however with weightbearing it becomes severe. He has no weakness in the right leg. He denies any symptoms in the left leg. A CT scan of the lumbar spine showed a bubble of gas in the central canal posterior to the L4 superior endplate. This is likely iatrogenic from recent epidural however it may also be due to vacuum disc phenomenon. There are multilevel degenerative changes. He is unable to have an MRI due to an implanted stimulator to treat his Parkinson's disease. He is currently on Gabapentin 300 mg TID and MS Contin 15 mg BID ands also Oxycodone for breakthrough pain and he does not feel he is significantly better. Last night he had SB while sleeping and at one point the HR dropped into the 30' s....he was sleeping at the time and when he was awoken the HR increased and he was asymptomatic. He is on atenolol for a hx of AF ( has had 2 ablations in the past). He is also on Cardura which can cause bradycardia. He has been afebrile since admission and white blood cell count is within normal limits. - Physical Exam General: Alert, Oriented x3, Cooperative, Well developed, Well nourished HEENT: Atraumatic, PERRLA, EOMI Oral: Moist Mucosa Neck: Supple, No Nodes, Trachea Midline Lungs: Clear to auscultation, Normal air movement Cardiovascular: Regular rate, Regular Rhythm, Normal S1, Normal S2, No Gallop Abdomen: Bowel Sounds Present, Soft, Non Tender, Non-Distended Extremities: No clubbing, No cyanosis, No edema, No Calf Tenderness Skin: No rashes Neurological: Cranial nerves II-XII grossly intact, - - The strength in the RLE is 5/5 but the strength in the LLE is decreased and he states this is chronic and is related to the PD. No facial aymmetry. Psych/Mental Status: Normal Affect, Appropriate Vital Signs Temp Pulse Resp BP Pulse Ox 98.8 F 61 18 159/83 H 94 08/04/17 07:33 08/04/17 10:00 08/04/17 07:33 08/04/17 07:33 08/04/17 07:33 Oxygen Delivery Method Room Air Weight: 154 lb 8.705 oz Body Mass Index (BMI) 24.9 Intake and Output for Last 24 Hours 08/02/17 08/03/17 08/04/17 23:59 23:59 23:59 Intake Total 540 / 540 300 / 300 Output Total 200 / 200 300 / 300 Balance 340 / 340 0 / 0 Medical Necessity - Tobacco Use Smoking Status: Never smoker Assessment/Plan Impressions 1. radiculitis RLE 2. bradycardia - likely related to Atenolol + Cardura. 3. 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 Hypertension 6. History of paroxysmal atrial fibrillation-status post ablation in the past Discontinue Cardura Start prednisone 60 mg p.o. daily Await the consult by Dr. Dr. Weldon possibly SNF at [place] if he does not improve in the next 24-48H Continue to monitor on telemetry Code Visit Inpatient E&M: 77330 Subs Hosp L2
--- NOTE | 2017-08-04 13:51 | CASEMGMT ---
Addendum entered by Brit Kline 08/04/17 15:26: SW in to update pt of pre-cert being obtained and pt's present in room. SW informed pt and pt's that pt's insurance has denied him to go to inpatient rehab unit but has approved for him to go to TCU. SW explained to pt and his that once the doctor feels pt is medically cleared pt will be discharged to TCU for rehabilitation. Pt and pt's states understanding. Original Note: Social Work Note SW received call from Rosita in TCU stating that pre-cert has been obtained for TCU. RN MEGHAN Andrews updated Dr. Gibson of this. Dr. Gibson stated that pt could possibly be discharged tomorrow. BOOM placed a call to Rosita in TCU and left her a message updating her that Dr. Gibson had mentioned possible discharge tomorrow. Plan: TCU tomorrow Brit Kline PLANT CULTURE MANAGER, SENIOR OFFICER
[2017-08-04] MEDS: predniSONE 20 MG Tablet 60 MG PO (14:57)
[2017-08-04] MEDS: Atenolol 25 MG Tablet 50 MG PO (21:17)
[2017-08-04] MEDS: Magnesium Hydroxide 30 ML UDC PO (21:17)
[2017-08-05] VITALS (9 sets, daily range): BP systolic 140–172; BP diastolic 72–78; PULSE 58–90; RESP 16–18; TEMP 36.7–37.4; O2SAT 95–99
[2017-08-05] MEDS: Senna/Docusate Sodium 1 Tablet 2 TABLET PO (06:14)
[2017-08-05] MEDS: Carbidopa/Levodopa 25/100 Tablet PO ×3 (06:14→16:37)
--- NOTE | 2017-08-05 08:24 | PCM.PROGNOTE ---
Subjective: Afebrile. Systolic blood pressures are elevated today, possibly secondary to severe constipation. He has not moved his bowels for 5 days now. He tells me his pain in the right leg is improved today and he was able to ambulate to and from the bathroom without difficulty. - Physical Exam General: Alert, Oriented x3, Cooperative, - - He looks uncomfortable Oral: Moist Mucosa Lungs: Clear to auscultation Cardiovascular: Regular rate, Regular Rhythm, Normal S1, Normal S2, No Gallop Abdomen: Bowel Sounds Present, Distended, Tender Extremities: No cyanosis, No edema, No Calf Tenderness Skin: No rashes Neurological: - - shaking of the L arm - chronic otherwise no focal deficits Psych/Mental Status: Normal Affect, Appropriate Vital Signs Temp Pulse Resp BP Pulse Ox 98.2 F 78 16 161/78 H 95 08/05/17 02:38 08/05/17 08:00 08/05/17 02:38 08/05/17 02:38 08/05/17 02:38 Oxygen Delivery Method Room Air Weight: 154 lb 8.705 oz Body Mass Index (BMI) 24.9 Intake and Output for Last 24 Hours 08/03/17 08/04/17 08/05/17 23:59 23:59 23:59 Intake Total 300 / 300 Output Total 300 / 300 Balance 0 / 0 Medical Necessity - Tobacco Use Smoking Status: Never smoker Assessment/Plan Impressions 1. radiculitis RLE - pain is improved today...will continue for a 10 day course of Prednisone 2. bradycardia - likely related to Atenolol + Cardura. No bradycardia last night with discontinuation of the Cardura 3. 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 Hypertension 6. History of paroxysmal atrial fibrillation-status post ablation in the past 7. severe constipation 8. urine retention - possibly related to severe constipation Continue prednisone 60 mg p.o. daily Await the consult by Dr. Dr. Weldon Dulcolax suppository +300 cc of magnesium citrate today. Straight cath as needed for urine residual greater than 250 cc. If urine retention persists following resolution of constipation will need to insert Maldonado catheter and will start Proscar plus Flomax. Code Visit Inpatient E&M: 64052 Subs Hosp L2
[2017-08-05] MEDS: Bisacodyl 10 MG Suppository RECTAL (08:39)
[2017-08-05] MEDS: Atenolol 25 MG Tablet 50 MG PO ×2 (08:40→21:19)
[2017-08-05] MEDS: Enoxaparin 40 MG/0.4 ML Syringe SC (08:40)
[2017-08-05] MEDS: Aspirin 81 MG TAB.CHEW PO (08:40)
[2017-08-05] MEDS: Gabapentin 300 MG Capsule PO ×3 (08:40→16:37)
[2017-08-05] MEDS: Polyethylene Glycol 3350 17 GM PACKET PO (08:43)
[2017-08-05] MEDS: predniSONE 20 MG Tablet 60 MG PO (08:43)
[2017-08-05] MEDS: Magnesium Citrate 300 ML PO (09:23)
--- NOTE | 2017-08-05 11:10 | CASEMGMT ---
Addendum entered by Brit Kline 08/05/17 12:26: Per rounds, Charge Nurse Pign informed this worker that Dr. Weldon has seen pt. At this time, pt needs to have a bowel movement before being discharged to TCU. BOOM placed a call to Rosita in TCU and left her a message informing her that Dr. Weldon has seen pt and that once pt has a bowel movement he should be able to discharge to TCU. Original Note: Social Work Note BOOM received message from Rosita in TCU. Rosita states that the preference would be for Dr. Mcginnis to see pt on acute side before pt comes to TCU. Rosita states that typically Dr. Mcginnis doesn't come to TCU and if a pt needs to see Dr. Weldon TCU schedules an appointment for pt to see Dr. Weldon in his office. Rosita states that she doesn't want to not get pt to TCU though as pre-cert was obtained yesterday and pre-cert will soon be . BOOM will update Dr. Gibson of this when she is available. Plan: TCU when medically cleared. Pre-cert was obtained yesterday Brit Kline SOFTWARE ENGINEER SALES, STATION CLEANING PORTER
--- NOTE | 2017-08-05 15:10 | CASEMGMT ---
Social Work Note SW placed a green sheet on pt's chart in the event pt has a bowel movement and he is able to discharge to TCU today. Plan: TCU today Brit Kline MSW, MIDDLE OR INTERMEDIATE SCHOOL PRINCIPAL
[2017-08-05] MEDS: Magnesium Hydroxide 30 ML UDC 60 ML PO (21:20)
[2017-08-06 01:57] VITALS: PULSE 57
[2017-08-06 02:20] VITALS: BP 157/88; PULSE 60; RESP 16; TEMP 36.8; O2SAT 97
[2017-08-06 06:37] LABS: Anion Gap 8 (5-15); BUN 33 mg/dL (7-18); BUN/Creat Ratio 32.7 RATIO (10-20); Calcium,Total 8.3 mg/dL (8.5-10.1); Chloride 98 mmol/L (98-107); Creatinine, Serum 1.01 mg/dL (0.70-1.30); EST Glomerular Filtration Rate 76 mL/min (>60); Est Glom Filt Rate - Afr Amer 92 mL/min (>60); Estimated Creatinine Clearance 55.27 ml/min; Glucose 93 mg/dL (74-106); Potassium 4.8 mmol/L (3.5-5.1); Sodium Level 129 mmol/L (136-145)
[2017-08-06] MEDS: Carbidopa/Levodopa 25/100 Tablet PO ×2 (06:54→11:40)
[2017-08-06 07:15] VITALS: PULSE 64
[2017-08-06] MEDS: Aspirin 81 MG TAB.CHEW PO (08:12)
[2017-08-06] MEDS: Atenolol 25 MG Tablet 50 MG PO (08:12)
[2017-08-06] MEDS: predniSONE 20 MG Tablet 60 MG PO (08:12)
[2017-08-06] MEDS: Gabapentin 300 MG Capsule PO ×2 (08:12→11:40)
[2017-08-06] MEDS: Enoxaparin 40 MG/0.4 ML Syringe SC (08:13)
[2017-08-06] MEDS: Polyethylene Glycol 3350 17 GM PACKET PO (08:16)
[2017-08-06 08:20] VITALS: BP 156/86; PULSE 64; RESP 16; TEMP 36.7; O2SAT 98
--- NOTE | 2017-08-06 09:10 | CASEMGMT ---
Addendum entered by Brit Kline 08/06/17 10:05: SW received call from Rosita in TCU stating that pre-cert is still good for today and pt is able to discharge today to TCU. Plan: TCU today Original Note: Social Work Note SW placed a call to Rosita in TCU asking if pt's pre-cert is still good for today or if pre-cert will need to be submitted again. BOOM waiting for call back from Rosita in TCU. Plan: TCU Brit Kline OIL SPREADER OPERATOR, FLANGE TURNER
--- NOTE | 2017-08-06 10:54 | PCM.TXEXTCAR ---
- Diet 07/31/17 13:58 Diet: Regular Diet Food consistency:: Regular Liquid Consistency:: Regular/Thin - Routine Orders/Code Status Enema Type: Fleetz Enema Frequency: Daily PRN Suppository Type: Dulcolax 10mg Suppository Frequency: Daily PRN O2 Liters per Minute: 1-2 O2 Frequency: PRN Keep PO Greater than or Equal to (%): 89 Routine Lab Work: - Tuesday 08/08 Code Status: Full Code - Therapies Weight Bearing: Full weight bearing Physical Therapy: Eval and Treat Occupational Therapy: Eval and Treat - Problem/Diagnosis (1) Hyponatremia Status: Acute Current Visit: Yes (2) Radiculitis Status: Acute Current Visit: Yes (3) Bradycardia Status: Acute Current Visit: Yes (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 Current Visit: Yes (5) Spondylosis of lumbar spine Status: Acute Current Visit: Yes (6) Spondylolisthesis of lumbar region Status: Chronic Current Visit: Yes (7) Enlarged prostate without lower urinary tract symptoms (luts) Status: Chronic Current Visit: Yes (8) Chronic back pain Status: Chronic Current Visit: Yes (9) History of atrial fibrillation Status: Chronic Current Visit: Yes (10) Hypertension Status: Chronic Current Visit: Yes (11) Parkinsons disease Status: Chronic Current Visit: Yes (12) Status post deep brain stimulator placement Status: Chronic Current Visit: Yes (13) Obstipation Status: Acute Current Visit: Yes - Allergies/Procedures Done in Hospital Allergies/Adverse Reactions: Allergies No Known Allergies Allergy (Verified 07/31/17 10:22) - Type of Care/Length of Stay Estimated LOS: Convalescent Care Less Than 30 days Type of Care Needed: Skilled Rehab Potential: Good Prognosis: Good - Additional Orders/Day of Discharge Additional Orders: He was very badly constipated in the hospital and had to be disimpacted. He is on 2 stool softeners......if bowels get loose then DC the senna and continue the Miralax. Sodium is low and I ordered Lab at the time of DC......I will call if we need to change any meds after I get the results of the TSH, cortisol and urine studies. H&P will serve as current which was dated: 07/31/17 Day of Discharge: 08/06/17 - Follow Up Care Primary Care Physician: Margarito Mata MD [Primary Care Provider] - Please follow up with your Primary Care Physician in: following Dc from TCU Please Follow Up With: Elio Weldon MD When: as needed for pain management
[2017-08-06 11:11] LABS: Thyroid Stim Hormone (TSH) 0.69 uIU/mL (0.358-3.74)
--- NOTE | 2017-08-06 11:16 | DS.PCM_ITS ---
Discharge Date and Diagnosis Date of Admission: 07/31/17 Date of Discharge: 08/06/17 - Primary Discharge Diagnosis Active and Suspected Problems Radiculitis (Acute) - RLE Bradycardia (Acute) Spondylosis of lumbar spine (Acute) Obstipation (Acute) Hyponatremia (Acute) - Secondary Discharge Diagnosis Chronic Problems Neuroforaminal stenosis of lumbar spine (Chronic) Spondylolisthesis of lumbar region (Chronic) Enlarged prostate without lower urinary tract symptoms (luts) (Chronic) Chronic back pain (Chronic) Status post deep brain stimulator placement (Chronic) Parkinsons disease (Chronic) Hypertension (Chronic) History of atrial fibrillation (Chronic) Hospital Course and Treatment Imaging Results: Clinical Impression(s) from Imaging Studies Lumbar Spine CT 07/31/17 11:03 IMPRESSION: There is a bubble of gas in the central canal posterior to the L4 superior endplate. It could be iatrogenic from recent injection, although vacuum disc phenomenon is also possible. There are multilevel degenerative changes. MRI provides better evaluation of disc disease, if clinically indicated. Electronically Signed: Brittany Chapin MD at 12:57 EDT , Service support , Hip/Pelvis X-Ray 07/31/17 14:56 IMPRESSION: Degenerative changes. Electronically Signed: Meme Isaacs MD at 15:44 EDT Tel , Service support , none Operations: None Procedures: None Summary of Care Provided: Mr. Mcnamara is a 77-year-old male who was admitted to [facility] with a complaint of intractable right leg pain. He had a recent Epidural by Dr. Weldon for chronic low back pain and stated that the severe pain started approximately 1 hour after the epidural. The pain is tolerable when lying in bed and when sitting however with weightbearing it became severe. He had no weakness in the right leg. He denied any symptoms in the left leg. He had no urine or fecal incontinence. A CT scan of the lumbar spine showed a bubble of gas in the central canal posterior to the L4 superior endplate that was likely iatrogenic from recent epidural however, it could have been due to vacuum disc phenomenon. There were multilevel degenerative changes. He was unable to have an MRI due to an implanted stimulator to treat his Parkinson's disease. He had some numbness in the right foot but no motor weakness on exam. He was admitted to the hospital and started on intravenous morphine sulfate and OxyIR as needed for pain. PT and OT evaluations were ordered. The next day he continued to have severe pain and he was started on Gabapentin 100 mg p.o. 3 times daily. This did not bring about satisfactory relief and the following day the gabapentin was increased to 300 mg 3 times daily and MS Contin was added. This regimen also did not significantly improve his pain. He was started on Prednisone 60 mg daily on 08/04/2017 and the following day his pain had started to improve. He was able to ambulate to and from the bathroom without difficulty. On that date he did complain of severe constipation and told me he had not moved his bowels in 5 days. Numerous laxatives were given without result and finally after starting Golytely his bowels moved. He was [place] [facility] on 08/06/2017 for continued physical therapy and occupational therapy prior to returning home. Stool softeners were continued. He will also continue on prednisone 60 mg daily for 7 more days. TSH and cortisol levels were drawn prior to discharge and these were within normal limits. Urine osmolality, sodium and urine creatinine were drawn prior to discharge and the results were consistent with prerenal azotemia. Home Medications: Medications to take at Discharge Aspirin [Aspirin, Baby] 81 mg PO DAILY@0800 07/23/14 Atenolol [Tenormin] 50 mg PO BID 07/23/14 Carbidopa/Levodopa 25/100 [Sinemet 25/100] 1 tab PO TID 07/31/17 Parsitan 1 tab PO TID 07/31/17 Celecoxib [Celebrex] 100 mg PO BID 08/06/17 Famotidine [Pepcid] 20 mg PO BID 08/06/17 Polyethylene Glycol 3350 [Miralax] 17 gm PO DAILY 08/06/17 Acetaminophen [Tylenol] 1,000 mg PO Q8H PRN PRN tablet 08/12/17 Hydrocodone/Acetaminophen [Vicodin 5-300 mg Tablet] 1 - 2 tab PO Q6H PRN PRN 7 Days #30 tab 08/12/17 Menthol/Lanolin/Calamine/Znox [Calmoseptine Ointment] 1 applic TOPICAL 00, 2200 tube 08/12/17 Nf Parsitan 1 tab PO TIDCM 08/12/17 Hydrocodone Bitart/Apap 5-325 [Pinckney 5MG-325MG] 1 tab PO Q6H PRN PRN #30 tab Gabapentin [Neurontin] 300 mg PO TIDCM #45 cap 08/15/17 Primary Care Physician: Margarito Mata MD [Primary Care Provider] - Please follow up with your Primary Care Physician in: following Dc from TCU Please Follow Up With: Elio Weldon MD When: as needed for pain management Disposition: Nursing Home facility Minutes spent on discharge:: 35 Patient Condition:: Good Medical Necessity - Tobacco Use Smoking Status: Never smoker Meaningful Use Info Meaningful Use Diagnoses (Choose all that apply): None applicable Code Visit Inpatient E&M: 63613 Disch Hosp
[2017-08-06 11:31] LABS: Osmolality, Serum 284 mOsm/KG (280-301)
[2017-08-06 13:35] VITALS: BP 145/84; PULSE 64; RESP 16; TEMP 36.7; O2SAT 98
--- NOTE | 2017-08-06 13:35 | NURSING ---
REPORT CALLED TO BRISEYDA PACHECO ON TCU FOR PATIENTS DISCHARGE.
[2017-08-06 13:50] LABS: Urine Sodium 38 mmol/L (Not Establ.)
[2017-08-06 13:59] LABS: Osmolality, Urine 454 mOsm/KG
--- NOTE | 2017-08-06 14:19 | CASEMGMT ---
Social Work Note Pt discharge to TCU today. Pt's present for transfer to TCU. 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
== END 2017-08-06 14:20 | disposition skilled nursing facility (03) ==
LOC: ED 10:42 → MS3 14:18
PROVIDERS: Internal Medicine; Admitting Provider Hospitalist; Emergency Provider Emergency Medicine; Family Provider Internal Medicine; PCP Internal Medicine; Visit Provider Internal Medicine
DX: M51.16 Intervertebral disc disorders with radiculopathy, lumbar region (principal); E87.1 Hypo-osmolality and hyponatremia; M47.896 Other spondylosis, lumbar region; G89.29 Other chronic pain; I48.0 Paroxysmal atrial fibrillation; G20 Parkinson's disease; I10 Essential (primary) hypertension; N40.0 Benign prostatic hyperplasia without lower urinary tract symptoms; M48.061 Spinal stenosis, lumbar region without neurogenic claudication; Z79.899 Other long term (current) drug therapy; Z79.82 Long term (current) use of aspirin; K59.00 Constipation, unspecified; R00.1 Bradycardia, unspecified
CPT/HCPCS: 36415; 72132; 73502; 80048; 82436; 82533; 82570; 83930; 83935; 84300; 84443; 85025; 85652; 86140; 96360; 96361; 96372; 97110; 97116; 97162; 97166; 97530; 97535; 99218; 99284; J7030; Q9967; A4216; G0378; G8978; G8979; G8987; G8988

== ENCOUNTER 2017-08-06 14:30 | Inpatient (IN) | payer MEDICARE, SELFPAY ==
[2017-08-06 14:49] VITALS: BP 121/74; PULSE 68; RESP 20; TEMP 36.3; O2SAT 94
--- NOTE | 2017-08-06 14:49 | NURSING ---
Pt came from [facility] at 14:30 via bed
[2017-08-06 15:28] VITALS: BMI 27.1
[2017-08-06 15:31] VITALS: BMI 27.1
[2017-08-06] MEDS: Acetaminophen 500 MG Tablet 1000 MG PO (16:10)
--- NOTE | 2017-08-06 16:32 | PCM.HP.STD ---
Problem List (1) Right leg pain Status: Acute (2) Lumbar radiculopathy Status: Acute (3) Constipation Status: Acute (4) Atrial fibrillation Status: Chronic (5) Low back pain Status: Acute (6) Hyponatremia Status: Acute (7) Parkinsons disease Status: Chronic (8) Hypertension Status: Chronic History of Present Illness Date of Admission: 08/06/17 Chief Complaint: Here for rehabilitation, strengthening, pain control, prior to discharge home with spouse. The patient is a 77 year old Male with below past medical history presented to [facility] Emergency Department 07/31/2017 with right hip, right leg pain. 07/31/2017 CT Lumbar spine showed multilevel degenerative changes, L4 bubble. History of chronic low back pain. Epidural injection [address] Weldon. Pain, numbness, weakness right leg. Sodium 130, C-reactive protein okay. Unable for MRI due to brain stimulator. Morphine given, patient on oxycodone at home. 07/31/2017 Admit to Hospital. No bowel or bladder incontinence. IV Morphine, OxyIR for pain, PT/OT. Evaluation of hyponatremia. 07/31/2017 X-ray pelvis, right hip showed arthritis. 08/01/2017 Add Neurontin 100MG TID. 08/02/2017 Pain controlled on oxycodone, neurontin. 08/03/2017 MS Contin 15MG twice daily. Oxycodone PRN. Increase Gabapentin to 300MG TID. 08/04/2017 Stop Cardura due to bradycardia. Start Prednisone 60MG daily. Wait Dr. Weldon input. 08/05/2017 Severe constipation, no bowel movement for 5 days. Prednisone 60MG daily x 10 days for right lower extremity radiculitis. Straight cath for urinary retention. 08/06/2017 Admit to TCU for rehabilitation, strengthening, prior to discharge home with spouse. Past Medical History Past Medical History (Chronic Problems): Chronic Problems Neuroforaminal stenosis of lumbar spine (Chronic) Spondylolisthesis of lumbar region (Chronic) Enlarged prostate without lower urinary tract symptoms (luts) (Chronic) Atrial fibrillation (Chronic) Chronic back pain (Chronic) Status post deep brain stimulator placement (Chronic) Parkinsons disease (Chronic) Hypertension (Chronic) History of atrial fibrillation (Chronic) Allergies No Known Allergies Allergy (Verified 07/31/17 10:22) Home Medications: Ambulatory Orders Medication Instructions Recorded Aspirin [Aspirin, Baby] 81 mg PO DAILY@0800 07/23/14 Atenolol [Tenormin] 50 mg PO BID 07/23/14 Carbidopa/Levodopa 25/100 [Sinemet 1 tab PO TID 07/31/17 25/100] Parsitan 1 tab PO TID 07/31/17 Celecoxib [Celebrex] 100 mg PO BID 08/06/17 Famotidine [Pepcid] 20 mg PO BID 08/06/17 Gabapentin [Neurontin] 300 mg PO TIDCM 08/06/17 Hydrocodone/Acetaminophen [Vicodin 1 - 2 tab PO Q6H PRN PRN 7 Days 08/06/17 5-300 mg Tablet] #56 tab Polyethylene Glycol 3350 [Miralax] 17 gm PO DAILY 08/06/17 Prednisone 60 mg PO DAILY 08/06/17 Senna/Docusate Sodium [Senokot-S] 2 tablet PO BID PRN tablet 08/06/17 Surgical History: - - Placement of brain stimulator. Psychiatric History: No pertinent psych hx Lives: Spouse/ Significant Other Smoking Status: Former smoker Tobacco Use: Non-smoker Alcohol: None Drugs: None - *Family History Maternal History Items: No pertinent history Paternal History Items: No pertinent history Review of Systems Constitutional: Reports: Weakness. Denies: Chills, Fever, Weight Change HEENT: Denies: Head Aches, Sinus Congestion, Sinus Drainage Cardiovascular: Denies: Chest Pain, Palpitations Respiratory: Denies: Cough, Shortness of breath at rest, Sputum production Gastrointestinal: Denies: Abdominal Pain, Nausea, Vomiting Genitourinary: Denies: Dysuria Musculoskeletal: Denies: Joint Pain, Joint Tenderness Skin: Denies: Rash, Wounds Neurological: Denies: Numbness, Tingling, Focal weakness Psychiatric: Denies: Anxiety, Depression, Homicidal Ideations, Suicidal Ideations Hematologic/ Lymphatic: Denies: Easy Bruising, Easy Bleeding VTE Information - Inpt Only VTE Present on Admission: No VTE Mechan Device Prophylaxis: Knee High RENO Hose VTE Pharm Prophylaxis ordered?: Yes Patient Problems: Active and Suspected Problems Right leg pain (Acute) Lumbar radiculopathy (Acute) Constipation (Acute) Low back pain (Acute) - Physical Exam General: Alert, Oriented x3, Cooperative HEENT: Atraumatic, PERRLA, EOMI, Normocephalic Neck: Supple, No JVD, Negative Carotid Bruits Lungs: Clear to auscultation, Normal air movement Cardiovascular: Regular rate, No murmurs Abdomen: Bowel Sounds Present, Soft, Non Tender, - - Mild FOS. Extremities: No edema, Capillary Refill Less than 3 Seconds Skin: No rashes, No breakdown Musculoskeletal: No Tenderness to Palpation of Joints or Extremities Neurological: Cranial nerves II-XII grossly intact Psych/Mental Status: Normal Affect, Appropriate Oxygen Delivery Method Room Air Weight: 69.354 kg Body Mass Index (BMI) 27.1 Assessment/Plan All Active Problems Hyponatremia (Acute) Radiculitis (Acute) Bradycardia (Acute) Spondylosis of lumbar spine (Acute) Obstipation (Acute) Right leg pain (Acute) Lumbar radiculopathy (Acute) Constipation (Acute) Low back pain (Acute) 77 year old male with below past medical history hospitalized for intractable low back pain, complicated by right lower extremity radiculopathy, severe constipation, urinary retention, hyponatremia, admitted to TCU with debility, here for rehabilitation, strengthening, prior to discharge home with spouse. Debility - PT/OT. Pain - Tylenol 1000MG Q8H PRN mild pain, [place] 5/325MG 1-2 tablets Q6H PRN moderate to severe pain. Bowel - Miralax 17GM daily, Senna/colace 2 tablets BID, Dulcolax 10MG ME daily PRN. Pneumonia vaccination - Administer Prevnar 13 and/or Pneumovax 23 as necessary. DVT prophylaxis - Lovenox 40MG SC daily. CV prophylaxis - Aspirin 81MG daily. Hypertension - Atenolol 50MG twice daily. Parkinson's Disease - Sinemet 25/100MG TID, Parsitan 50MG TID. Osteoarthritis - Celebrex 100MG twice daily. Nutrition - Ensure Enlive 120ML 4x/day. GERD - Famotidine 20MG twice daily. Lumbar radiculopathy - Prednisone 60MG daily thru 08/13/2017, Gabapentin 300MG TID. Skin irritation - Calmoseptine BID inner buttocks.
--- NOTE | 2017-08-06 16:42 | HP.PCM_ITS ---
Problem List (1) Right leg pain Status: Acute (2) Lumbar radiculopathy Status: Acute (3) Constipation Status: Acute (4) Atrial fibrillation Status: Chronic (5) Low back pain Status: Acute (6) Hyponatremia Status: Acute (7) Parkinsons disease Status: Chronic (8) Hypertension Status: Chronic History of Present Illness Date of Admission: 08/06/17 Chief Complaint: Here for rehabilitation, strengthening, pain control, prior to discharge home with spouse. The patient is a 77 year old Male with below past medical history presented to [facility] Emergency Department 07/31/2017 with right hip, right leg pain. 07/31/2017 CT Lumbar spine showed multilevel degenerative changes, L4 bubble. History of chronic low back pain. Epidural injection [address] Weldon. Pain, numbness, weakness right leg. Sodium 130, C-reactive protein okay. Unable for MRI due to brain stimulator. Morphine given, patient on oxycodone at home. 07/31/2017 Admit to Hospital. No bowel or bladder incontinence. IV Morphine, OxyIR for pain, PT/OT. Evaluation of hyponatremia. 07/31/2017 X-ray pelvis, right hip showed arthritis. 08/01/2017 Add Neurontin 100MG TID. 08/02/2017 Pain controlled on oxycodone, neurontin. 08/03/2017 MS Contin 15MG twice daily. Oxycodone PRN. Increase Gabapentin to 300MG TID. 08/04/2017 Stop Cardura due to bradycardia. Start Prednisone 60MG daily. Wait Dr. Weldon input. 08/05/2017 Severe constipation, no bowel movement for 5 days. Prednisone 60MG daily x 10 days for right lower extremity radiculitis. Straight cath for urinary retention. 08/06/2017 Admit to TCU for rehabilitation, strengthening, prior to discharge home with spouse. Past Medical History Past Medical History (Chronic Problems): Chronic Problems Neuroforaminal stenosis of lumbar spine (Chronic) Spondylolisthesis of lumbar region (Chronic) Enlarged prostate without lower urinary tract symptoms (luts) (Chronic) Atrial fibrillation (Chronic) Chronic back pain (Chronic) Status post deep brain stimulator placement (Chronic) Parkinsons disease (Chronic) Hypertension (Chronic) History of atrial fibrillation (Chronic) Allergies No Known Allergies Allergy (Verified 07/31/17 10:22) Home Medications: Ambulatory Orders Medication Instructions Recorded Aspirin [Aspirin, Baby] 81 mg PO DAILY@0800 07/23/14 Atenolol [Tenormin] 50 mg PO BID 07/23/14 Carbidopa/Levodopa 25/100 [Sinemet 1 tab PO TID 07/31/17 25/100] Parsitan 1 tab PO TID 07/31/17 Celecoxib [Celebrex] 100 mg PO BID 08/06/17 Famotidine [Pepcid] 20 mg PO BID 08/06/17 Gabapentin [Neurontin] 300 mg PO TIDCM 08/06/17 Hydrocodone/Acetaminophen [Vicodin 1 - 2 tab PO Q6H PRN PRN 7 Days 08/06/17 5-300 mg Tablet] #56 tab Polyethylene Glycol 3350 [Miralax] 17 gm PO DAILY 08/06/17 Prednisone 60 mg PO DAILY 08/06/17 Senna/Docusate Sodium [Senokot-S] 2 tablet PO BID PRN tablet 08/06/17 Surgical History: - - Placement of brain stimulator. Psychiatric History: No pertinent psych hx Lives: Spouse/ Significant Other Smoking Status: Former smoker Tobacco Use: Non-smoker Alcohol: None Drugs: None - *Family History Maternal History Items: No pertinent history Paternal History Items: No pertinent history Review of Systems Constitutional: Reports: Weakness. Denies: Chills, Fever, Weight Change HEENT: Denies: Head Aches, Sinus Congestion, Sinus Drainage Cardiovascular: Denies: Chest Pain, Palpitations Respiratory: Denies: Cough, Shortness of breath at rest, Sputum production Gastrointestinal: Denies: Abdominal Pain, Nausea, Vomiting Genitourinary: Denies: Dysuria Musculoskeletal: Denies: Joint Pain, Joint Tenderness Skin: Denies: Rash, Wounds Neurological: Denies: Numbness, Tingling, Focal weakness Psychiatric: Denies: Anxiety, Depression, Homicidal Ideations, Suicidal Ideations Hematologic/ Lymphatic: Denies: Easy Bruising, Easy Bleeding VTE Information - Inpt Only VTE Present on Admission: No VTE Mechan Device Prophylaxis: Knee High R[place] Hose VTE Pharm Prophylaxis ordered?: Yes Patient Problems: Active and Suspected Problems Right leg pain (Acute) Lumbar radiculopathy (Acute) Constipation (Acute) Low back pain (Acute) - Physical Exam General: Alert, Oriented x3, Cooperative HEENT: Atraumatic, PERRLA, EOMI, Normocephalic Neck: Supple, No JVD, Negative Carotid Bruits Lungs: Clear to auscultation, Normal air movement Cardiovascular: Regular rate, No murmurs Abdomen: Bowel Sounds Present, Soft, Non Tender, - - Mild FOS. Extremities: No edema, Capillary Refill Less than 3 Seconds Skin: No rashes, No breakdown Musculoskeletal: No Tenderness to Palpation of Joints or Extremities Neurological: Cranial nerves II-XII grossly intact Psych/Mental Status: Normal Affect, Appropriate Oxygen Delivery Method Room Air Weight: 69.354 kg Body Mass Index (BMI) 27.1 Assessment/Plan All Active Problems Hyponatremia (Acute) Radiculitis (Acute) Bradycardia (Acute) Spondylosis of lumbar spine (Acute) Obstipation (Acute) Right leg pain (Acute) Lumbar radiculopathy (Acute) Constipation (Acute) Low back pain (Acute) 77 year old male with below past medical history hospitalized for intractable low back pain, complicated by right lower extremity radiculopathy, severe constipation, urinary retention, hyponatremia, admitted to TCU with debility, here for rehabilitation, strengthening, prior to discharge home with spouse. * Debility - PT/OT. * Pain - Tylenol 1000MG Q8H PRN mild pain, [place] 5/325MG 1-2 tablets Q6H PRN moderate to severe pain. * Bowel - Miralax 17GM daily, Senna/colace 2 tablets BID, Dulcolax 10MG ID daily PRN. * Pneumonia vaccination - Administer Prevnar 13 and/or Pneumovax 23 as necessary. * DVT prophylaxis - Lovenox 40MG SC daily. * CV prophylaxis - Aspirin 81MG daily. * Hypertension - Atenolol 50MG twice daily. * Parkinson's Disease - Sinemet 25/100MG TID, Parsitan 50MG TID. * Osteoarthritis - Celebrex 100MG twice daily. * Nutrition - Ensure Enlive 120ML 4x/day. * GERD - Famotidine 20MG twice daily. * Lumbar radiculopathy - Prednisone 60MG daily thru 08/13/2017, Gabapentin 300MG TID. * Skin irritation - Calmoseptine BID inner buttocks.
[2017-08-06] MEDS: Carbidopa/Levodopa 25/100 Tablet PO (17:11)
[2017-08-06] MEDS: Famotidine 20 MG Tablet PO (17:12)
[2017-08-06] MEDS: Celecoxib 100 MG Capsule PO (17:12)
[2017-08-06] MEDS: Gabapentin 300 MG Capsule PO (17:12)
[2017-08-06] MEDS: Atenolol 50 MG Tablet PO (17:13)
[2017-08-06] MEDS: Senna/Docusate Sodium 1 Tablet 2 TABLET PO (17:42)
[2017-08-06 17:48] VITALS: O2SAT 94
[2017-08-06] MEDS: Menthol/Lanolin/Calamine/Znox 113 GM Tube 1 APPLIC TOPICAL (20:24)
[2017-08-07 05:58] LABS: Absolute Lymphocyte Count 1.02 X10^3/ul (0.83-4.51); Absolute Neutrophil Count 6.1 X10^3/uL (2.0-7.7); Basophil# 0.01 X10^3/uL; Basophil% 0.1 % (0-1); Eosinophil# 0.02 X10^3/uL; Eosinophils% 0.2 % (0-5); Hematocrit 40.8 % (40-54); Lymphocyte # 1.02 X10^3/ul (4.0); Lymphocyte % 12.7 % (19-41); Mean Corp Hgb Conc 34.3 g/gl (32-36); Mean Corpuscular Hgb 32.6 pg (27.0-32.0); Mean Corpuscular Volume 95.1 fL (80-94); Mean Platelet Vol. 9.8 fl (6.2-12.0); Monocyte# 0.93 X10^3/uL; Monocyte% 11.6 % (0-10); Neutrophil # 6.06 X10^3/uL (2.7-7.7); Neutrophil % 75.3 % (47-70); Platelet Count 167 K/mm3 (150-450); RBC Distribution Width SD 41.4 fl (35.1-43.9); Red Blood Count 4.29 M/mm3 (4.6-6.2); White Blood Count 8.1 K/mm3 (4.4-11.0)
[2017-08-07 06:00] LABS: POSITIVE COUNT NO; POSITIVE DIFFERENTIAL NO; POSITIVE MORPHOLOGY NO
[2017-08-07 06:12] LABS: Anion Gap 6 (5-15); BUN 40 mg/dL (7-18); BUN/Creat Ratio 35.4 RATIO (10-20); Calcium,Total 8.5 mg/dL (8.5-10.1); Chloride 96 mmol/L (98-107); Creatinine, Serum 1.13 mg/dL (0.70-1.30); EST Glomerular Filtration Rate 67 mL/min (>60); Est Glom Filt Rate - Afr Amer 81 mL/min (>60); Estimated Creatinine Clearance 44.06 ml/min; Glucose 96 mg/dL (74-106); Potassium 4.4 mmol/L (3.5-5.1); Sodium Level 134 mmol/L (136-145)
[2017-08-07] MEDS: HYDROcodone Bitartrate/Apap 5/325 Tablet PO (06:37)
[2017-08-07 06:38] VITALS: O2SAT 95
[2017-08-07] MEDS: Senna/Docusate Sodium 1 Tablet 2 TABLET PO ×2 (06:39→16:52)
[2017-08-07] MEDS: Famotidine 20 MG Tablet PO ×2 (06:41→16:51)
[2017-08-07] MEDS: Celecoxib 100 MG Capsule PO ×2 (06:41→16:51)
[2017-08-07] MEDS: Carbidopa/Levodopa 25/100 Tablet PO ×3 (06:42→16:50)
[2017-08-07] MEDS: Enoxaparin 40 MG/0.4 ML Syringe SC (06:42)
[2017-08-07] MEDS: Atenolol 50 MG Tablet PO ×2 (06:42→16:51)
[2017-08-07] MEDS: Polyethylene Glycol 3350 17 GM PACKET PO (06:44)
[2017-08-07] MEDS: Menthol/Lanolin/Calamine/Znox 113 GM Tube 1 APPLIC TOPICAL ×2 (06:46→21:58)
[2017-08-07] MEDS: predniSONE 20 MG Tablet 60 MG PO (08:37)
[2017-08-07] MEDS: Aspirin 81 MG TAB.CHEW PO (08:37)
[2017-08-07] MEDS: Gabapentin 300 MG Capsule PO ×3 (08:37→16:50)
[2017-08-07] MEDS: Tuberculin,Purif.prot.deriv. 50 TU/ML Vial 5 ML ID (12:00)
[2017-08-07 15:57] VITALS: BP 113/74; PULSE 64; RESP 18; TEMP 35.8; O2SAT 94
[2017-08-08] MEDS: Enoxaparin 40 MG/0.4 ML Syringe SC (06:16)
[2017-08-08] MEDS: Atenolol 50 MG Tablet PO ×2 (06:16→17:25)
[2017-08-08] MEDS: Carbidopa/Levodopa 25/100 Tablet PO ×3 (06:16→17:26)
[2017-08-08] MEDS: Famotidine 20 MG Tablet PO ×2 (06:16→17:26)
[2017-08-08] MEDS: Menthol/Lanolin/Calamine/Znox 113 GM Tube 1 APPLIC TOPICAL ×2 (06:16→21:50)
[2017-08-08] MEDS: Celecoxib 100 MG Capsule PO ×2 (06:16→17:26)
--- NOTE | 2017-08-08 08:00 | NURSING ---
Dr Bhandari aware Prednisone stopping 08/13. Per Dr Jen olivo to stop abruptly after short course. N.N.O.
[2017-08-08] MEDS: predniSONE 20 MG Tablet 60 MG PO (08:23)
[2017-08-08] MEDS: Gabapentin 300 MG Capsule PO ×3 (08:24→17:26)
[2017-08-08] MEDS: Aspirin 81 MG TAB.CHEW PO (08:24)
[2017-08-08 08:34] VITALS: O2SAT 94
--- NOTE | 2017-08-08 15:33 | PHA.CONS_ITS ---
<Geovani Bowles D - Last Filed: 08/08/17 15:24> Progress Note - Pharmacy Subjective: TCU Admission Objective: Allergies No Known Allergies Allergy (Verified 07/31/17 10:22) Current Medications Generic Name Dose Route Start Last Admin Trade Name Freq PRN Reason Stop Dose Admin Acetaminophen 1,000 mg 08/06/17 16:45 Tylenol PO Q8H PRN PRN MILD PAIN (1-3/10) Hydrocodone Bitart/Acetaminophen 1 - 2 tablet 08/06/17 16:06 08/07/17 06:37 [place] 5mg-325mg PO 1 tablet Q6H PRN PRN Administration PAIN Aspirin 81 mg 08/07/17 08:00 08/08/17 08:24 Aspirin, Baby PO 81 mg DAILY@0800 KEVIN Administration Atenolol 50 mg 08/06/17 18:00 08/08/17 06:16 Tenormin (Beta Ebenezer) PO 50 mg BID KEVIN Administration Bisacodyl 10 mg 08/06/17 15:12 Dulcolax RECTAL DAILY PRN Constipation Calamine/Phenol 1 applic 08/06/17 22:00 08/08/17 06:16 Calmoseptine Ointment TOPICAL 1 applicatio 0600,2200 KEVIN Administration Protocol Carbidopa/Levodopa 1 tablet 08/06/17 16:45 08/08/17 12:30 Sinemet PO 1 tablet TIDAC KEVIN Administration Celecoxib 100 mg 08/06/17 18:00 08/08/17 06:16 Celebrex PO 100 mg BID KEVIN Administration Enoxaparin Sodium 40 mg 08/07/17 06:00 08/08/17 06:16 Lovenox SC 40 mg DAILY@0600 KEVIN Administration Famotidine 20 mg 08/06/17 18:00 08/08/17 06:16 Pepcid PO 20 mg BID KEVIN Administration Gabapentin 300 mg 08/06/17 17:45 08/08/17 12:30 Neurontin PO 300 mg TIDCM KEVIN Administration Non-Formulary Medication 1 tab 08/06/17 22:00 08/08/17 13:42 Nf Parsitan PO 1 tab TID KEVIN Administration Nutritional Formula (Lactose Free) 120 ml 08/06/17 17:00 08/08/17 12:30 Ensure Enlive PO 120 ml 4X/DAY KEVIN Administration Polyethylene Glycol 17 gm 08/07/17 06:00 08/08/17 06:16 Miralax PO Not Given DAILY KEVIN Prednisone 60 mg 08/07/17 08:00 08/08/17 08:23 PO 08/13/17 08:01 60 mg DAILYCM KEVIN Administration Senna/Docusate Sodium 2 tablet 08/06/17 18:30 08/08/17 06:16 Senokot-S, Josie-Colace PO Not Given BID KEVIN Tuberculin PPD 5 tu 08/14/17 10:00 Tubersol, Aplisol, Ppd ID 08/14/17 10:01 X1 ONE Problem List Right leg pain (Acute) Lumbar radiculopathy (Acute) Constipation (Acute) Atrial fibrillation (Chronic) Low back pain (Acute) Vital Signs Temp Pulse Resp BP Pulse Ox 96.5 F L 64 18 113/74 94 08/07/17 15:57 08/07/17 15:57 08/07/17 15:57 08/07/17 15:57 08/08/17 08:34 Oxygen Delivery Method Room Air Weight: 69.354 kg Body Mass Index (BMI) 27.1 Sodium 134 mmol/L (136-145) L 08/07/17 05:20 Potassium 4.4 mmol/L (3.5-5.1) 08/07/17 05:20 Chloride 96 mmol/L (98-107) L 08/07/17 05:20 Carbon Dioxide 32.0 mmol/L (21.0-32.0) 08/07/17 05:20 Anion Gap 6 (5-15) 08/07/17 05:20 BUN 40 mg/dL (7-18) H 08/07/17 05:20 Creatinine 1.13 mg/dL (0.70-1.30) 08/07/17 05:20 Est GFR (MDRD) Af Amer 81 mL/min (>60) 08/07/17 05:20 Est GFR (MDRD) Non-Af 67 mL/min (>60) 08/07/17 05:20 BUN/Creatinine Ratio 35.4 RATIO (10-20) H 08/07/17 05:20 Glucose 96 mg/dL (74-106) 08/07/17 05:20 Assessment/Plan: 1) Pain APAP prn, hydrocodone/APAP prn, celecoxib, gabapentin, prednisone. Continue to monitor prn medication use, daily pain scores. 2) CV PPx/HTN ASA, atenolol. Continue to monitor BP/HR. 3) GI Famotidine twice daily. Continue to monitor s/s GI distress. 4) DVT PPx Enoxaparin daily. Continue to monitor s/s bleeding/clot. 5) Parkinson's Parsitan, carbidopa/levodopa. Continue to monitor for symptoms. Psychotropic Medications: None Unnecessary Medications: None Bowel Regimen: 6) Senna/s, PEG, prn bisacodyl. Continue to monitor prn medication use, for constipation/diarrhea. Date of Note:: 08/08/17 - Provider Comments Provider responsibility: Provider responsible to enter orders to implement recommendations <Ivan Bhandari Chi - Last Filed: 08/08/17 19:05> Progress Note - Pharmacy Subjective: [] Objective: Allergies No Known Allergies Allergy (Verified 07/31/17 10:22) Current Medications Generic Name Dose Route Start Last Admin Trade Name Freq PRN Reason Stop Dose Admin Acetaminophen 1,000 mg 08/06/17 16:45 08/08/17 17:31 Tylenol PO 1,000 mg Q8H PRN PRN Administration MILD PAIN (1-3/10) Hydrocodone Bitart/Acetaminophen 1 - 2 tablet 08/06/17 16:06 08/07/17 06:37 [place] 5mg-325mg PO 1 tablet Q6H PRN PRN Administration PAIN Aspirin 81 mg 08/07/17 08:00 08/08/17 08:24 Aspirin, Baby PO 81 mg DAILY@0800 KEVIN Administration Atenolol 50 mg 08/06/17 18:00 08/08/17 17:25 Tenormin (Beta Ebenezer) PO 50 mg BID KEVIN Administration Bisacodyl 10 mg 08/06/17 15:12 Dulcolax RECTAL DAILY PRN Constipation Calamine/Phenol 1 applic 08/06/17 22:00 08/08/17 06:16 Calmoseptine Ointment TOPICAL 1 applicatio 0600,2200 KEVIN Administration Protocol Carbidopa/Levodopa 1 tablet 08/06/17 16:45 08/08/17 17:26 Sinemet PO 1 tablet TIDAC KEVIN Administration Celecoxib 100 mg 08/06/17 18:00 08/08/17 17:26 Celebrex PO 100 mg BID KEVIN Administration Enoxaparin Sodium 40 mg 08/07/17 06:00 08/08/17 06:16 Lovenox SC 40 mg DAILY@0600 KEVIN Administration Famotidine 20 mg 08/06/17 18:00 08/08/17 17:26 Pepcid PO 20 mg BID KEVIN Administration Gabapentin 300 mg 08/06/17 17:45 08/08/17 17:26 Neurontin PO 300 mg TIDCM KEVIN Administration Non-Formulary Medication 1 tab 08/06/17 22:00 08/08/17 13:42 Nf Parsitan PO 1 tab TID KEVIN Administration Nutritional Formula (Lactose Free) 120 ml 08/06/17 17:00 08/08/17 17:25 Ensure Enlive PO 120 ml 4X/DAY KEVIN Administration Polyethylene Glycol 17 gm 08/07/17 06:00 08/08/17 06:16 Miralax PO Not Given DAILY KEVIN Prednisone 60 mg 08/07/17 08:00 08/08/17 08:23 PO 08/13/17 08:01 60 mg DAILYCM KEVIN Administration Senna/Docusate Sodium 2 tablet 08/06/17 18:30 08/08/17 17:26 Senokot-S, Joise-Colace PO Not Given BID KEVIN Tuberculin PPD 5 tu 08/14/17 10:00 Tubersol, Aplisol, Ppd ID 08/14/17 10:01 X1 ONE Problem List Right leg pain (Acute) Lumbar radiculopathy (Acute) Constipation (Acute) Atrial fibrillation (Chronic) Low back pain (Acute) Vital Signs Temp Pulse Resp BP Pulse Ox 97.9 F 63 24 H 143/83 H 94 08/08/17 15:41 08/08/17 15:41 08/08/17 15:41 08/08/17 15:41 08/08/17 15:41 Oxygen Delivery Method Room Air Weight: 69.354 kg Body Mass Index (BMI) 27.1 Sodium 134 mmol/L (136-145) L 08/07/17 05:20 Potassium 4.4 mmol/L (3.5-5.1) 08/07/17 05:20 Chloride 96 mmol/L (98-107) L 08/07/17 05:20 Carbon Dioxide 32.0 mmol/L (21.0-32.0) 08/07/17 05:20 Anion Gap 6 (5-15) 08/07/17 05:20 BUN 40 mg/dL (7-18) H 08/07/17 05:20 Creatinine 1.13 mg/dL (0.70-1.30) 08/07/17 05:20 Est GFR (MDRD) Af Amer 81 mL/min (>60) 08/07/17 05:20 Est GFR (MDRD) Non-Af 67 mL/min (>60) 08/07/17 05:20 BUN/Creatinine Ratio 35.4 RATIO (10-20) H 08/07/17 05:20 Glucose 96 mg/dL (74-106) 08/07/17 05:20 Assessment/Plan: Psychotropic Medications: Unnecessary Medications: Bowel Regimen: - Provider Comments Provider responsibility: Provider responsible to enter orders to implement recommendations Provider Comments to Recommendations by Pharmacy: Agree
[2017-08-08 15:41] VITALS: BP 143/83; PULSE 63; RESP 24; TEMP 36.6; O2SAT 94
[2017-08-08] MEDS: Acetaminophen 500 MG Tablet 1000 MG PO (17:31)
[2017-08-08 21:55] VITALS: PULSE 58; O2SAT 95
[2017-08-09] MEDS: Celecoxib 100 MG Capsule PO ×2 (04:30→17:09)
[2017-08-09] MEDS: Menthol/Lanolin/Calamine/Znox 113 GM Tube 1 APPLIC TOPICAL ×2 (04:30→20:15)
[2017-08-09] MEDS: Enoxaparin 40 MG/0.4 ML Syringe SC (04:30)
[2017-08-09] MEDS: Atenolol 50 MG Tablet PO ×2 (04:31→17:18)
[2017-08-09] MEDS: Carbidopa/Levodopa 25/100 Tablet PO ×3 (04:31→17:09)
[2017-08-09] MEDS: Famotidine 20 MG Tablet PO ×2 (04:31→17:09)
[2017-08-09 07:05] VITALS: O2SAT 93
[2017-08-09] MEDS: predniSONE 20 MG Tablet 60 MG PO (08:08)
[2017-08-09] MEDS: Aspirin 81 MG TAB.CHEW PO (08:08)
[2017-08-09] MEDS: Gabapentin 300 MG Capsule PO ×3 (08:08→17:09)
[2017-08-09 15:28] VITALS: BP 152/78; PULSE 70; RESP 16; TEMP 36.2; O2SAT 95
[2017-08-09] MEDS: Senna/Docusate Sodium 1 Tablet 2 TABLET PO (17:10)
[2017-08-09 20:21] VITALS: PULSE 65; RESP 18; O2SAT 95
[2017-08-10] MEDS: Senna/Docusate Sodium 1 Tablet 2 TABLET PO ×2 (06:40→16:55)
[2017-08-10] MEDS: Carbidopa/Levodopa 25/100 Tablet PO ×3 (06:40→16:55)
[2017-08-10] MEDS: Famotidine 20 MG Tablet PO ×2 (06:40→16:55)
[2017-08-10] MEDS: Celecoxib 100 MG Capsule PO ×2 (06:41→16:55)
[2017-08-10] MEDS: Atenolol 50 MG Tablet PO ×2 (06:41→16:55)
[2017-08-10] MEDS: Enoxaparin 40 MG/0.4 ML Syringe SC (06:41)
[2017-08-10] MEDS: Menthol/Lanolin/Calamine/Znox 113 GM Tube 1 APPLIC TOPICAL ×2 (06:42→19:48)
[2017-08-10] MEDS: predniSONE 20 MG Tablet 60 MG PO (08:08)
[2017-08-10] MEDS: Gabapentin 300 MG Capsule PO ×3 (08:08→16:55)
[2017-08-10] MEDS: Aspirin 81 MG TAB.CHEW PO (08:08)
[2017-08-10 08:17] VITALS: O2SAT 94
[2017-08-10] MEDS: HYDROcodone Bitartrate/Apap 5/325 Tablet PO ×2 (09:26→15:28)
[2017-08-10 15:48] VITALS: BP 142/96; PULSE 68; RESP 18; TEMP 36.8; O2SAT 92
[2017-08-11] MEDS: Enoxaparin 40 MG/0.4 ML Syringe SC (06:35)
[2017-08-11] MEDS: Celecoxib 100 MG Capsule PO ×2 (06:35→17:47)
[2017-08-11] MEDS: Famotidine 20 MG Tablet PO ×2 (06:35→17:47)
[2017-08-11] MEDS: Atenolol 50 MG Tablet PO ×2 (06:35→17:46)
[2017-08-11] MEDS: Polyethylene Glycol 3350 17 GM PACKET PO (06:36)
[2017-08-11] MEDS: Carbidopa/Levodopa 25/100 Tablet PO ×3 (06:39→17:46)
[2017-08-11] MEDS: Menthol/Lanolin/Calamine/Znox 113 GM Tube 1 APPLIC TOPICAL ×2 (06:41→21:08)
[2017-08-11 07:56] VITALS: O2SAT 94
[2017-08-11] MEDS: predniSONE 20 MG Tablet 60 MG PO (08:13)
[2017-08-11] MEDS: Gabapentin 300 MG Capsule PO ×3 (08:13→17:47)
[2017-08-11] MEDS: Aspirin 81 MG TAB.CHEW PO (08:13)
[2017-08-11] MEDS: HYDROcodone Bitartrate/Apap 5/325 Tablet PO (13:47)
--- NOTE | 2017-08-11 15:34 | CASEMGMT ---
Insurance Clinical update faxed. Will await continued stay determination. Auth # [id number] JONO Kaiser
[2017-08-11 16:00] VITALS: BP 137/78; PULSE 60; RESP 16; TEMP 36.3; O2SAT 95
--- NOTE | 2017-08-11 17:02 | NURSING ---
Pt up in chair sleeping. in room. Call light within reach.
[2017-08-11] MEDS: Senna/Docusate Sodium 1 Tablet 2 TABLET PO (17:47)
[2017-08-12] MEDS: Menthol/Lanolin/Calamine/Znox 113 GM Tube 1 APPLIC TOPICAL ×2 (06:38→21:10)
[2017-08-12] MEDS: Enoxaparin 40 MG/0.4 ML Syringe SC (06:38)
[2017-08-12] MEDS: Senna/Docusate Sodium 1 Tablet 2 TABLET PO ×2 (06:38→16:42)
[2017-08-12] MEDS: Famotidine 20 MG Tablet PO ×2 (06:38→16:41)
[2017-08-12] MEDS: Polyethylene Glycol 3350 17 GM PACKET PO (06:38)
[2017-08-12] MEDS: Celecoxib 100 MG Capsule PO ×2 (06:38→16:41)
[2017-08-12] MEDS: Atenolol 50 MG Tablet PO ×2 (06:38→16:42)
[2017-08-12] MEDS: Carbidopa/Levodopa 25/100 Tablet PO ×3 (06:38→16:42)
[2017-08-12] MEDS: HYDROcodone Bitartrate/Apap 5/325 Tablet PO (10:00)
[2017-08-12] MEDS: predniSONE 20 MG Tablet 60 MG PO (10:01)
[2017-08-12] MEDS: Gabapentin 300 MG Capsule PO ×3 (10:01→16:41)
[2017-08-12] MEDS: Aspirin 81 MG TAB.CHEW PO (10:01)
[2017-08-12 15:43] VITALS: BP 129/75; PULSE 64; RESP 18; TEMP 36.6; O2SAT 95
--- NOTE | 2017-08-12 16:38 | CASEMGMT ---
Insurance Continued stay denied with last cover day being 08/14/18 and resident to discharge or financial responsibility to begin on 08/15/17. Auth#[id number] Sussy DE LA CRUZ, UI UX ENGINEER
--- NOTE | 2017-08-12 16:39 | CASEMGMT ---
Social Work Spoke with resident and resident family in room. This social media project manager communicating that continued stay has been denied by insurance with a last cover day of 08/14/17 and resident to discharge on or financial responsibility to begin on 08/15/17. Resident choosing to discharge on 08/15/17 to home with spouse. Resident reporting to need a walker and to want to do outpatient physical therapy through [facility] at time of discharge. Team is agreeable to resident continuing with therapy and are recommending for resident to continue with therapy and utilize a walker at time of discharge. Resident does not have a preference of [employer], [employer] to be utilized. Resident spouse present during interaction and supportive of discharge plan/date. Support given. Proposed discharge date: 08/15/17 PLAN: Discharge home with spouse and outpatient physical therapy. Will continue to follow. Sussy DE LA CRUZ, TRAFFIC SIGNAL TECHNICIAN
--- NOTE | 2017-08-12 22:38 | DCINST_ITS ---
- Discharge Diagnoses Current Active Problems: Current Active and Chronic Problems Right leg pain (Acute) Lumbar radiculopathy (Acute) Constipation (Acute) Atrial fibrillation (Chronic) Low back pain (Acute) You will use the following diet at home:: No restrictions, Regular Your food should be the consistency of: Regular Your liquids should be the consistency of: Regular/Thin Discharge Activity: Return to Normal Activity, May Shower, Use Walker Weight Bearing Status: Weight bearing as tolerated Call your doctor if you observe: Fever of 101 or Higher, Inability to urinate, Inability to have a bowel movement, Shortness of breath, Chest pain, Uncontrolled pain Allergies/Adverse Reactions: Allergies No Known Allergies Allergy (Verified 07/31/17 10:22) Medications to take at Discharge Aspirin [Aspirin, Baby] 81 mg PO DAILY@0800 07/23/14 Atenolol [Tenormin] 50 mg PO BID 07/23/14 Carbidopa/Levodopa 25/100 [Sinemet 25/100] 1 tab PO TID 07/31/17 [place]itan 1 tab PO TID 07/31/17 Celecoxib [Celebrex] 100 mg PO BID 08/06/17 Famotidine [Pepcid] 20 mg PO BID 08/06/17 Gabapentin [Neurontin] 300 mg PO TIDCM 08/06/17 Polyethylene Glycol 3350 [Miralax] 17 gm PO DAILY 08/06/17 Acetaminophen [Tylenol] 1,000 mg PO Q8H PRN PRN tablet 08/12/17 Hydrocodone/Acetaminophen [Vicodin 5-300 mg Tablet] 1 - 2 tab PO Q6H PRN PRN 7 Days #30 tab 08/12/17 Menthol/Lanolin/Calamine/Znox [Calmoseptine Ointment] 1 applic TOPICAL 0600, 2200 tube 08/12/17 Nf Parsitan 1 tab PO TIDCM 08/12/17 The following prescriptions were given: Hydrocodone/Acetaminophen [Vicodin 5-300 mg Tablet] 1 - 2 tab PO Q6H PRN PRN 7 Days #30 tab PRN Reason: Pain Primary Care Physician: Margarito Mata MD [Primary Care Provider] - Please follow up with your Primary Care Physician in: 1 week. Proposed Discharge Date: 08/15/17
--- NOTE | 2017-08-12 22:39 | DS.PCM_ITS ---
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 of lumbar region (Chronic) Enlarged prostate without lower urinary tract symptoms (luts) (Chronic) Atrial fibrillation (Chronic) Chronic back pain (Chronic) Status post deep brain stimulator placement (Chronic) Parkinsons disease (Chronic) Hypertension (Chronic) History of atrial fibrillation (Chronic) Hospital Course and Treatment Imaging Results: 08/06/17 15:06 Diet: Regular Diet Food consistency:: Regular Liquid Consistency:: Regular/Thin Is pt able to select menu?: Yes Operations: None Procedures: None Summary of Care Provided: The patient is a 77 year old Male with below past medical history hospitalized for intractable low back pain, complicated by right lower extremity radiculopathy, severe constipation, urinary retention, hyponatremia, admitted to TCU with debility, here for rehabilitation, strengthening, prior to discharge home with spouse. Discharge home with spouse, and outpatient physical therapy. Discharge Diet: No Restrictions Discharge Activity: Return to Normal Activity, May Shower, Use Walker Weight Bearing Status: Weight bearing as tolerated Call your doctor if you observe: Fever of 101 or Higher, Inability to urinate, Inability to have a bowel movement, Shortness of breath, Chest pain, Uncontrolled pain Home Medications: Medications to take at Discharge Aspirin [Aspirin, Baby] 81 mg PO DAILY@0800 07/23/14 Atenolol [Tenormin] 50 mg PO BID 07/23/14 Carbidopa/Levodopa 25/100 [Sinemet 25/100] 1 tab PO TID 07/31/17 Parsitan 1 tab PO TID 07/31/17 Celecoxib [Celebrex] 100 mg PO BID 08/06/17 Famotidine [Pepcid] 20 mg PO BID 08/06/17 Gabapentin [Neurontin] 300 mg PO TIDCM 08/06/17 Polyethylene Glycol 3350 [Miralax] 17 gm PO DAILY 08/06/17 Acetaminophen [Tylenol] 1,000 mg PO Q8H PRN PRN tablet 08/12/17 Hydrocodone/Acetaminophen [Vicodin 5-300 mg Tablet] 1 - 2 tab PO Q6H PRN PRN 7 Days #30 tab 08/12/17 Menthol/Lanolin/Calamine/Znox [Calmoseptine Ointment] 1 applic TOPICAL 0600, 2200 tube 08/12/17 Nf Parsitan 1 tab PO TIDCM 08/12/17 Following Prescrptions Were Given to Patient: Hydrocodone/Acetaminophen [Vicodin 5-300 mg Tablet] 1 - 2 tab PO Q6H PRN PRN 7 Days #30 tab PRN Reason: Pain Primary Care Physician: Margarito Mata MD [Primary Care Provider] - Please follow up with your Primary Care Physician in: 1 week. Disposition: Home Minutes spent on discharge:: 30 Patient Condition:: Good Medical Necessity - Tobacco Use Smoking Status: Former smoker Tobacco Use: Non-smoker Meaningful Use Info Meaningful Use Diagnoses (Choose all that apply): None applicable
[2017-08-13] MEDS: Menthol/Lanolin/Calamine/Znox 113 GM Tube 1 APPLIC TOPICAL ×2 (06:14→20:17)
[2017-08-13] MEDS: Celecoxib 100 MG Capsule PO ×2 (06:16→16:32)
[2017-08-13] MEDS: Enoxaparin 40 MG/0.4 ML Syringe SC (06:16)
[2017-08-13] MEDS: Carbidopa/Levodopa 25/100 Tablet PO ×3 (06:17→16:31)
[2017-08-13] MEDS: Atenolol 50 MG Tablet PO ×2 (06:17→16:32)
[2017-08-13] MEDS: Famotidine 20 MG Tablet PO ×2 (06:17→16:32)
[2017-08-13] MEDS: Polyethylene Glycol 3350 17 GM PACKET PO (06:17)
[2017-08-13] MEDS: Senna/Docusate Sodium 1 Tablet 2 TABLET PO ×2 (06:17→16:32)
[2017-08-13] MEDS: Bisacodyl 10 MG Suppository RECTAL (06:22)
--- NOTE | 2017-08-13 06:31 | NURSING ---
Pt c/o of feeling constipated this morning. PRN R/S given. Continue to monitor for results.
[2017-08-13] MEDS: Aspirin 81 MG TAB.CHEW PO (09:00)
[2017-08-13] MEDS: predniSONE 20 MG Tablet 60 MG PO (09:00)
[2017-08-13] MEDS: Gabapentin 300 MG Capsule PO ×3 (09:00→16:31)
[2017-08-13] MEDS: HYDROcodone Bitartrate/Apap 5/325 Tablet PO (11:07)
[2017-08-13 16:00] VITALS: BP 130/75; PULSE 66; RESP 18; TEMP 36.7; O2SAT 96
--- NOTE | 2017-08-13 16:42 | CASEMGMT ---
Brief interview for mental status (BIMS) and resident mood interview (PHQ-9) completed on this day. BIMS score 1315. PHQ-9 score 04/15
[2017-08-14 06:17] LABS: Absolute Lymphocyte Count 1.12 X10^3/ul (0.83-4.51); Absolute Neutrophil Count 6.6 X10^3/uL (2.0-7.7); Eosinophil# 0.04 X10^3/uL; Eosinophils% 0.5 % (0-5); Hematocrit 40.4 % (40-54); Hemoglobin 13.6 g/dl (13.0-16.5); Lymphocyte # 1.12 X10^3/ul (4.0); Mean Corp Hgb Conc 33.7 g/gl (32-36); Mean Corpuscular Hgb 32.6 pg (27.0-32.0); Mean Corpuscular Volume 96.9 fL (80-94); Mean Platelet Vol. 9.8 fl (6.2-12.0); Monocyte% 9.3 % (0-10); Neutrophil # 6.58 X10^3/uL (2.7-7.7); Neutrophil % 76.6 % (47-70); Platelet Count 171 K/mm3 (150-450); RBC Distribution Width CV 11.9 % (11.6-14.6); RBC Distribution Width SD 41.1 fl (35.1-43.9); Red Blood Count 4.17 M/mm3 (4.6-6.2); White Blood Count 8.6 K/mm3 (4.4-11.0)
[2017-08-14 06:22] LABS: POSITIVE COUNT NO; POSITIVE DIFFERENTIAL NO; POSITIVE MORPHOLOGY NO
[2017-08-14 06:29] LABS: Anion Gap 7 (5-15); BUN 32 mg/dL (7-18); BUN/Creat Ratio 28.8 RATIO (10-20); Calcium,Total 9.1 mg/dL (8.5-10.1); Chloride 99 mmol/L (98-107); Creatinine, Serum 1.11 mg/dL (0.70-1.30); EST Glomerular Filtration Rate 68 mL/min (>60); Est Glom Filt Rate - Afr Amer 83 mL/min (>60); Estimated Creatinine Clearance 44.85 ml/min; Glucose 81 mg/dL (74-106); Potassium 4.7 mmol/L (3.5-5.1); Sodium Level 138 mmol/L (136-145)
[2017-08-14] MEDS: Atenolol 50 MG Tablet PO ×2 (06:32→16:56)
[2017-08-14] MEDS: Carbidopa/Levodopa 25/100 Tablet PO ×3 (06:32→16:56)
[2017-08-14] MEDS: Senna/Docusate Sodium 1 Tablet 2 TABLET PO ×2 (06:32→16:56)
[2017-08-14] MEDS: Enoxaparin 40 MG/0.4 ML Syringe SC (06:32)
[2017-08-14] MEDS: Polyethylene Glycol 3350 17 GM PACKET PO (06:33)
[2017-08-14] MEDS: Famotidine 20 MG Tablet PO ×2 (06:33→16:56)
[2017-08-14] MEDS: Celecoxib 100 MG Capsule PO ×2 (06:33→16:56)
[2017-08-14] MEDS: Menthol/Lanolin/Calamine/Znox 113 GM Tube 1 APPLIC TOPICAL ×2 (06:37→21:15)
[2017-08-14] MEDS: HYDROcodone Bitartrate/Apap 5/325 Tablet PO ×2 (07:07→16:55)
[2017-08-14] MEDS: Gabapentin 300 MG Capsule PO ×3 (08:26→16:56)
[2017-08-14] MEDS: Aspirin 81 MG TAB.CHEW PO (08:26)
--- NOTE | 2017-08-14 14:08 | CASEMGMT ---
Plan of care meeting held. Resident present as well as resident spouse. Resident has a planned discharge date of 08/15/17. Resident plans to discharge home with spouse. Resident to have continued therapy through outpatient physical therapy at [facility]. Resident to also have a walker set up through [facility]. Resident spouse to provide transportation home for resident at time of discharge. Resident and resident spouse voicing no further needs. Support given. Telephone call to [employer] [facility]. This social sciences lecturer making referral for front wheeled walker. Order faxed. Ping to have walker delivered to resident room prior to resident discharge. Telephone call to [facility] to contact resident to set up appointment as resident is not currently in their system. Order faxed. Resident made aware that [facility] will be contacting resident. Proposed discharge date: 08/15/17 PLAN: Discharge home with spouse and outpatient physical therapy. Sussy DE LA CRUZ, MARKET GARDEN WORKER
[2017-08-14 15:34] VITALS: BP 145/74; PULSE 65; RESP 18; TEMP 36.6; O2SAT 96
[2017-08-15] MEDS: Enoxaparin 40 MG/0.4 ML Syringe SC (04:50)
[2017-08-15] MEDS: Polyethylene Glycol 3350 17 GM PACKET PO (04:50)
[2017-08-15] MEDS: Atenolol 50 MG Tablet PO (04:50)
[2017-08-15] MEDS: Famotidine 20 MG Tablet PO (04:50)
[2017-08-15] MEDS: Celecoxib 100 MG Capsule PO (04:50)
[2017-08-15] MEDS: Senna/Docusate Sodium 1 Tablet 2 TABLET PO (04:50)
[2017-08-15] MEDS: Carbidopa/Levodopa 25/100 Tablet PO ×2 (04:50→10:41)
[2017-08-15] MEDS: Menthol/Lanolin/Calamine/Znox 113 GM Tube 1 APPLIC TOPICAL (04:58)
[2017-08-15] MEDS: Aspirin 81 MG TAB.CHEW PO (08:02)
[2017-08-15] MEDS: Gabapentin 300 MG Capsule PO ×2 (08:02→11:52)
[2017-08-15 09:49] VITALS: BP 124/73; PULSE 66; RESP 16; TEMP 36.8; O2SAT 93
--- NOTE | 2017-08-15 12:19 | NURSING ---
Dr Bhandari to [facility]ontin [facility], pt was not taking at home.
--- NOTE | 2017-08-15 13:42 | CASEMGMT ---
Insurance Notified insurance of resident discharge on 08/15/17 to home with spouse and outpatient physical therapy. Auth#[id number] Sussy DE LA CRUZ, CREWMAN [employer] PERSONNEL CARRIER [id number]
--- NOTE | 2017-08-18 13:59 | MDS.RN ---
Information for the mds was obtained from review of the clinical record, interview of resident, staff, and direct observation of resident's care.
== END 2017-08-15 12:30 | disposition home or self-care (01) | DRG 948 ==
PROVIDERS: Admitting Provider Family Medicine Geriatric Medicine; Family Provider Internal Medicine; PCP Internal Medicine; Visit Provider Family Medicine Geriatric Medicine
DX: R53.81 Other malaise (principal); M54.16 Radiculopathy, lumbar region; K21.9 Gastro-esophageal reflux disease without esophagitis; G20 Parkinson's disease; M19.90 Unspecified osteoarthritis, unspecified site; I10 Essential (primary) hypertension; Z87.891 Personal history of nicotine dependence; Z79.899 Other long term (current) drug therapy; K59.00 Constipation, unspecified; M48.061 Spinal stenosis, lumbar region without neurogenic claudication; M43.16 Spondylolisthesis, lumbar region; N40.0 Benign prostatic hyperplasia without lower urinary tract symptoms; I48.2 Chronic atrial fibrillation
CPT/HCPCS: 36415; 80048; 85025; 92507; 92523; 97110; 97116; 97162; 97166; 97530; 97535; 97802

== ENCOUNTER 2017-10-24 16:30 | Inpatient (IN) | payer MEDICARE, SELFPAY ==
--- NOTE | 2017-10-24 16:47 | HP.PCM_ITS ---
Problem List (1) BPH (benign prostatic hyperplasia) Status: Chronic (2) Osteoarthritis Status: Chronic (3) GERD (gastroesophageal reflux disease) Status: Chronic (4) Aspiration pneumonia Status: Acute (5) Dysphagia Status: Acute (6) Hyponatremia Status: Acute (7) Spondylolisthesis of lumbar region Status: Chronic (8) Lumbar radiculopathy Status: Chronic (9) Constipation Status: Chronic (10) Atrial fibrillation Status: Chronic (11) Parkinsons disease Status: Chronic (12) Hypertension Status: Chronic History of Present Illness Date of Admission: 10/24/17 Chief Complaint: Here for rehabilitation, strengthening, prior to discharge home with spouse. The patient is a 77 year old Male with below past medical history with intractable low back pain, right lumbar radiculopathy, debility. 10/14/2017 Patient admitted to [facility], Dr. Diamond performed L4 fusion /fixation. Patient reports the surgery was a success, relieved right lumbar radicular pain. 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 Improved with salt tablets. He had hypokalemia, but potassium was supplemented. Patient then developed acute respiratory failure. He was diagnosed with aspiration pneumonitis treated with IV Zosyn, then transitioned to Augmentin PO. Speech Therapy ordered Modified barium swallow which showed dysphagia, silent aspiration. Patient now has tube feeding Via CorPak. 10/24/2017 Admit to TCU with debility, here for rehabilitation, strengthening, prior to discharge home with spouse. Speech Therapy will work with resident to advance his diet, and wean him off of tube feeding. Past Medical History Past Medical History (Chronic Problems): Chronic Problems Neuroforaminal stenosis of lumbar spine (Chronic) Spondylolisthesis of lumbar region (Chronic) Enlarged prostate without lower urinary tract symptoms (luts) (Chronic) Lumbar radiculopathy (Chronic) Constipation (Chronic) Atrial fibrillation (Chronic) BPH (benign prostatic hyperplasia) (Chronic) Osteoarthritis (Chronic) GERD (gastroesophageal reflux disease) (Chronic) Chronic back pain (Chronic) Status post deep brain stimulator placement (Chronic) Parkinsons disease (Chronic) Hypertension (Chronic) History of atrial fibrillation (Chronic) Allergies No Known Allergies Allergy (Verified 07/31/17 10:22) Home Medications: Ambulatory Orders Medication Instructions Recorded Acetaminophen Liquid [Tylenol 650 mg GT Q4H PRN PRN 10/24/17 Liquid] Amoxicillin/Potassium Clav 1 each GT X1 10/24/17 [Augmentin 875-125 Tablet] Atenolol [Tenormin] 75 mg GT DAILY 10/24/17 Bisacodyl [Dulcolax] 10 mg GT DAILY 10/24/17 Carbidopa/Levodopa 25/100 [Sinemet] 2 tablet PO TIDAC 10/24/17 Cyclobenzaprine [Flexeril] 5 mg GT TID 10/24/17 Diphenhydramine HCl 10 ml GT Q6H PRN PRN 10/24/17 Hydrocodone Bitart/Apap 5-325 1 tablet GT Q6H PRN PRN 10/24/17 [[place] 5MG-325MG] Lisinopril [Prinivil] 10 mg GT DAILY 10/24/17 Mag Hydrox/Al Hydrox/Simeth 30 ml GT Q6H PRN PRN 10/24/17 [Mylanta II] Magnesium Hydroxide [Milk of 30 ml GT DAILY PRN 10/24/17 Magnesia] Menthol/Lanolin/Calamine/Znox 1 applic TOPICAL 0600,2200 10/24/17 [Calmoseptine Ointment] Multivitamins,Therapeutic 1 tablet GT DAILY 10/24/17 [Multivitamin] Omeprazole Magnesium [Prilosec Otc] 20 mg GT DAILY@0600 10/24/17 Parsitan 50 mg GT TID 10/24/17 Sodium Chloride 1 gm GT TID 10/24/17 Ubidecarenone [Co Q-10] 10 mg GT DAILY 10/24/17 Surgical History: - - Deep Brain Stimulator implantation; L4 fusion/fixation. Psychiatric History: No pertinent psych hx Lives: Spouse/ Significant Other Smoking Status: Former smoker Tobacco Use: Non-smoker Alcohol: None Drugs: None - *Family History Maternal History Items: No pertinent history Paternal History Items: No pertinent history Review of Systems Constitutional: Denies: Chills, Fever, Weight Change HEENT: Denies: Head Aches, Sinus Congestion, Sinus Drainage Cardiovascular: Denies: Chest Pain, Palpitations Respiratory: Denies: Cough, Shortness of breath at rest, Sputum production Gastrointestinal: Denies: Abdominal Pain, Nausea, Vomiting Genitourinary: Denies: Dysuria Musculoskeletal: Denies: Joint Pain, Joint Tenderness Skin: Denies: Rash, Wounds Neurological: Denies: Numbness, Tingling, Focal weakness Psychiatric: Denies: Anxiety, Depression, Homicidal Ideations, Suicidal Ideations Hematologic/ Lymphatic: Denies: Easy Bruising, Easy Bleeding VTE Information - Inpt Only VTE Present on Admission: No VTE Mechan Device Prophylaxis: Knee High RENO Hose VTE Pharm Prophylaxis ordered?: Yes Patient Problems: Active and Suspected Problems Aspiration pneumonia (Acute) Dysphagia (Acute) - Physical Exam General: Alert, Oriented x3, Cooperative HEENT: Atraumatic, PERRLA, EOMI, Normocephalic, - - Corpak in place. Neck: Supple, No JVD, Negative Carotid Bruits Lungs: Clear to auscultation, Normal air movement Cardiovascular: Regular rate, No murmurs Abdomen: Bowel Sounds Present, Soft, Non Tender Extremities: No edema, Capillary Refill Less than 3 Seconds Skin: No rashes, No breakdown Musculoskeletal: No Tenderness to Palpation of Joints or Extremities Neurological: Cranial nerves II-XII grossly intact Psych/Mental Status: Normal Affect, Appropriate Assessment/Plan All Active Problems Hyponatremia (Acute) Radiculitis (Acute) Bradycardia (Acute) Spondylosis of lumbar spine (Acute) Obstipation (Acute) Right leg pain (Acute) Low back pain (Acute) Aspiration pneumonia (Acute) Dysphagia (Acute) 77 year old male with below past medical history significant for intractable right lumbar radiculopathy, underwent lumbar fusion/fixation 10/14/[address] Leonardo Diamond, complicated by hyponatremia, aspiration pneumonitis, dysphagia requiring tube feeding via Cor swapnil, admitted to TCU with debility, here for rehabilitation, strengthening, advancement of diet, prior to discharge home with spouse. * Debility - PT/OT. * Dysphagia - ST. * Pain - [place] 5/325MG 1 tablet Q6H PRN moderate pain. * Bowel - Miralax 17GM daily, Dulcolax 10MG DE daily PRN. * Pneumonia vaccination - Administer Prevnar 13 and/or Pneumovax 23 as necessary. * DVT prophylaxis - Lovenox 40MG SC daily. * Aspiration pneumonia - Augmentin 875MG GT x 1 dose, done with treatment. * Hypertension - Atenolol 75MG daily, Lisinopril 10MG daily. * Parkinson's Disease - Deep brain stimulator, Sinemet 25/100MG 2 tablets TIDAC , Parsitan 50MG TID. * Muscle spasm - Flexeril 5MG TID. * Skin Irritation - Calmoseptine BID buttocks. * Nutrition - MVI daily, Osmolite 1.2 40ML/HR. * GERD - Pantoprazole 20MG daily. * Hyponatremia - Sodium chloride 1GM TID.
[2017-10-24 17:25] VITALS: BP 169/92; PULSE 78; RESP 16; TEMP 36.7; O2SAT 98
[2017-10-24 20:41] VITALS: BMI 27.5
--- NOTE | 2017-10-24 20:43 | NURSING ---
Discussed code status with patient, patient's , and patient's daughter. Patient wishes to be DNR-CC. Purple bracelet applied
[2017-10-24 20:47] VITALS: BMI 27.5
[2017-10-24] MEDS: Amox/Clav 400mg/5ml Susp 875 MG GT (21:32)
[2017-10-24] MEDS: Menthol/Lanolin/Calamine/Znox 113 GM Tube 1 APPLIC TOPICAL (21:33)
[2017-10-24] MEDS: SODIUM CHLORIDE 1 GM TABLET PO (21:37)
[2017-10-25 00:11] LABS: Bedside Glucose 108 mg/dL (70-110)
[2017-10-25] MEDS: Enoxaparin 40 MG/0.4 ML Syringe SC (05:19)
[2017-10-25] MEDS: Menthol/Lanolin/Calamine/Znox 113 GM Tube 1 APPLIC TOPICAL ×2 (05:19→20:52)
[2017-10-25] MEDS: Lisinopril 10 MG Tablet GT (05:20)
[2017-10-25] MEDS: SODIUM CHLORIDE 1 GM TABLET PO ×2 (05:20→13:10)
[2017-10-25] MEDS: Atenolol 50 MG Tablet 75 MG GT (05:20)
[2017-10-25 06:56] LABS: Bedside Glucose 110 mg/dL (70-110)
[2017-10-25 08:13] LABS: Absolute Lymphocyte Count 0.96 X10^3/ul (0.83-4.51); Absolute Neutrophil Count 6.6 X10^3/uL (2.0-7.7); Basophil# 0.03 X10^3/uL; Basophil% 0.4 % (0-1); Eosinophils% 2.5 % (0-5); Hematocrit 34.8 % (40-54); Hemoglobin 11.3 g/dl (13.0-16.5); Lymphocyte # 0.96 X10^3/ul (4.0); Lymphocyte % 11.9 % (19-41); Mean Corp Hgb Conc 32.5 g/gl (32-36); Mean Corpuscular Hgb 30.6 pg (27.0-32.0); Mean Corpuscular Volume 94.3 fL (80-94); Mean Platelet Vol. 9.3 fl (6.2-12.0); Monocyte# 0.18 X10^3/uL; Monocyte% 2.2 % (0-10); Neutrophil # 6.64 X10^3/uL (2.7-7.7); Neutrophil % 82.5 % (47-70); Platelet Count 257 K/mm3 (150-450); RBC Distribution Width CV 12.5 % (11.6-14.6); RBC Distribution Width SD 42.7 fl (35.1-43.9); Red Blood Count 3.69 M/mm3 (4.6-6.2); White Blood Count 8.1 K/mm3 (4.4-11.0)
[2017-10-25 08:14] LABS: POSITIVE COUNT NO; POSITIVE DIFFERENTIAL NO; POSITIVE MORPHOLOGY NO
[2017-10-25 08:32] LABS: Anion Gap 8 (5-15); BUN 44 mg/dL (7-18); BUN/Creat Ratio 54.3 RATIO (10-20); Calcium,Total 8.3 mg/dL (8.5-10.1); Chloride 104 mmol/L (98-107); Creatinine, Serum 0.81 mg/dL (0.70-1.30); EST Glomerular Filtration Rate 98 mL/min (>60); Est Glom Filt Rate - Afr Amer 119 mL/min (>60); Estimated Creatinine Clearance 63.95 ml/min; Glucose 116 mg/dL (74-106); Potassium 3.6 mmol/L (3.5-5.1); Sodium Level 138 mmol/L (136-145)
[2017-10-25] MEDS: Carbidopa/Levodopa 25/100 Tablet PO ×3 (08:36→18:53)
[2017-10-25] MEDS: Polyethylene Glycol 3350 17 GM PACKET GT (08:54)
--- NOTE | 2017-10-25 11:19 | NS ---
Rec switch enteral formula to Jevity 1.5 via NG at goal rate of 50cc/hour w/ 200cc saline flush (as previously ordered d/t hyponatremia) to provide 1800 calories, 76.56 g protein, and 912cc H2O + 800cc saline for a total of 1712cc free fluid per day. Would start TF at 20cc/hour and increase by 10 cc q 6 hours as res tolerates until goal rate achieved.
[2017-10-25 11:30] LABS: Bedside Glucose 125 mg/dL (70-110)
--- NOTE | 2017-10-25 11:45 | NURSING ---
Per [facility], patient to have swallow eval Friday at 1400, please d/c NG tube prior to test. Also, per peter Peters, MVI not available in liquid form and cannot be crush, d/c medication.
[2017-10-25] MEDS: Tuberculin,Purif.prot.deriv. 50 TU/ML Vial 5 ML ID (13:09)
[2017-10-25] MEDS: Mag Hydrox/Al Hydrox/Simeth 30 ML UDC GT (14:00)
--- NOTE | 2017-10-25 14:05 | NURSING ---
Addendum entered by Zraa Kyle 10/25/17 16:04: NO for famotidine 40mg GT daily. Original Note: Pt had episode of vomiting, moderate amount of light brown emesis noted. Given PRN mylanta per order. Patient states the nausea came on suddenly, no other complaints. Will continue to monitor.
--- NOTE | 2017-10-25 14:30 | NURSING ---
Per Headwaitress, d/c osmolite, start jevity 1.5 @ 50mL/hr, start at 20mLHr and increase every 6 hours as patient tolerates until goal reach.
[2017-10-25 16:00] VITALS: BP 159/86; PULSE 71; RESP 18; TEMP 36.9; O2SAT 97
[2017-10-25 17:05] LABS: Bedside Glucose 102 mg/dL (70-110)
--- NOTE | 2017-10-25 17:12 | NURSING ---
Patient still has c/o nausea. Bowel sounds active, abdomen soft and non-tender. Patient appears fatigued. Afebrile. Dr. Bhandari updated. NO for KUB, decreas NACL to 1gram qHS and zofran 4mg ODT [id number] PRN.
[2017-10-25] MEDS: Ondansetron ODT 4 MG Tablet PO (18:53)
[2017-10-25] MEDS: Jevity 1.5 1,000 ML 50 ML GT (19:06)
[2017-10-25 20:55] VITALS: PULSE 80; O2SAT 97
[2017-10-26 00:16] LABS: Bedside Glucose 102 mg/dL (70-110)
[2017-10-26] MEDS: Ondansetron ODT 4 MG Tablet PO (00:47)
--- NOTE | 2017-10-26 03:04 | NURSING ---
Pt continues to have nausea this shift, and states that he feels lightheaded, denies CP. Dr Bhandari notified. N.O. for 1L NS bolus at 60cc/hr, to DC Reglan, and hold tube feed.
[2017-10-26] MEDS: 0.9% Normal Saline 1,000 ML 60 ML IV (04:35)
[2017-10-26 07:10] LABS: Bedside Glucose 84 mg/dL (70-110)
[2017-10-26] MEDS: Polyethylene Glycol 3350 17 GM PACKET GT (09:04)
[2017-10-26] MEDS: Famotidine 20 MG Tablet 40 MG NG (09:06)
[2017-10-26] MEDS: Carbidopa/Levodopa 25/100 Tablet PO ×3 (09:08→18:47)
[2017-10-26] MEDS: Atenolol 50 MG Tablet 75 MG GT (09:08)
[2017-10-26] MEDS: Lisinopril 10 MG Tablet GT (09:08)
[2017-10-26] MEDS: Enoxaparin 40 MG/0.4 ML Syringe SC (09:22)
[2017-10-26] MEDS: Menthol/Lanolin/Calamine/Znox 113 GM Tube 1 APPLIC TOPICAL ×2 (09:42→20:58)
[2017-10-26 11:30] LABS: Bedside Glucose 111 mg/dL (70-110)
--- NOTE | 2017-10-26 14:25 | NURSING ---
NO to d/c NACL tablet and change NG flushes to sterile water and not NS. D/C flexeril and decrease sinemet to 1 tablet PO TID.
[2017-10-26 15:47] VITALS: BP 160/91; PULSE 68; RESP 16; TEMP 36.8; O2SAT 95
[2017-10-26 17:26] LABS: Bedside Glucose 109 mg/dL (70-110)
[2017-10-26] MEDS: Jevity 1.5 1,000 ML 50 ML GT (18:41)
[2017-10-26 21:10] VITALS: PULSE 67; O2SAT 93
[2017-10-27 00:36] LABS: Bedside Glucose 104 mg/dL (70-110)
[2017-10-27] MEDS: Polyethylene Glycol 3350 17 GM PACKET GT (06:32)
[2017-10-27] MEDS: Menthol/Lanolin/Calamine/Znox 113 GM Tube 1 APPLIC TOPICAL ×2 (06:32→21:41)
[2017-10-27] MEDS: Enoxaparin 40 MG/0.4 ML Syringe SC (06:32)
[2017-10-27] MEDS: Lisinopril 10 MG Tablet GT (06:33)
[2017-10-27] MEDS: Carbidopa/Levodopa 25/100 Tablet PO ×3 (06:33→21:38)
[2017-10-27] MEDS: Atenolol 50 MG Tablet 75 MG GT (06:33)
[2017-10-27] MEDS: Famotidine 20 MG Tablet 40 MG NG (06:33)
[2017-10-27 07:06] LABS: Bedside Glucose 135 mg/dL (70-110)
[2017-10-27 11:11] LABS: Bedside Glucose 113 mg/dL (70-110)
--- NOTE | 2017-10-27 12:04 | NURSING ---
Addendum entered by Mireya Luo 10/27/17 12:07: Will hold meds at this time due to resident being NPO. Original Note: Resident up in chair. Denies nausea. Corpak removed at this time for Barium swallow study at 1400. Tube flushed with sterile water prior to removal. Tube removed and resident tolerated procedure well.
--- NOTE | 2017-10-27 14:00 | SP.MBSS_ITS ---
PRIMARY / SECONDARY DIAGNOSIS: dysphagia (R13.12) REFERRING PHYSICIAN: Dr. Raghavendra Bhandari MD CURRENT DIET: NPO with alternative means of nutrition via Corpack (removed for study) DENTITION: dentures MENTAL STATUS: WFL RESPIRATORY STATUS: O2 via room air PREVIOUS MODIFIED BARIUM SWALLOW STUDY: 09/2017 MBS at [facility] revealed silent aspiration, though no further details are available at this time. REASON FOR REFERRAL: Patient is a 77 year old male referred for a repeat modified barium swallow ( MBS) study to objectively assess the Patients oropharyngeal swallow function under fluoroscopy secondary to severe dysphagia associated with the diagnosis of Parkinsons disease likely exacerbated post surgical intervention, with recent objective assessment under fluoroscopy revealing silent aspiration. The Patient is currently admitted to [facility]itional [facility] Unit on 10/24/2017 following 10/14/2017 lumbar fusion/fixation at [facility] due to intractable right lumbar radiculopathy; post- operative course complicated by hyponatremia, dysphagia resulting in aspiration pneumonitis with silent aspiration under fluoroscopy, requiring tube feeding via Corpak. Patient reports intermittent coughing with intake prior to surgical intervention, unable to recall specific textures eliciting coughing episodes, though reports this was not consistent in presentation; reports post prandial bloating; reports intermittent diurnal sialorrhea (SSS:4/9); Denies dysgeusia, globus sensation, odynophagia; reports no aspiration related pulmonary complications since previous [facility] [place] admission; Patient ambulating with assistance < 200 ft., reports improved back pain. Patient is currently strict NPO with alternative means of nutrition via Corpak (Osmolite 1.2 40mL/hr.). MEDICAL HISTORY: Parkinsons disease status post deep brain stimulator placement (6-7 years prior at [facility]; followed by Dr. 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 STUDY FINDINGS: Patient participated in a Modified Barium Swallow (MBS) study on 10/27/2017. Dr. Betancur was the radiologist present for this evaluation. This study was recorded in the lateral view and images were sent to PACs for storage. The following consistencies were presented to this patient for analysis of oropharyngeal swallow function: thin liquids, pudding, and a regular textured, Bailey Doone cookie. Results of the MBS are as follows: PENETRATION / ASPIRATION SCALE (GUZMAN): 1 = does not enter airway 2 = enters airway/above vocal folds/ejected 3 = enters airway/above vocal folds/not ejected 4 = enters airway/contacts vocal folds/ejected 5 = enters airway/contacts vocal folds/not ejected 6 = enters airway/below vocal folds/ejected 7 = enters airway/below vocal folds/not ejected despite effort 8 = enters airway/below vocal folds/no effort VIDEOFLOROSCOPIC SCALE SCORE (GUZMAN): Grade I = aspiration of material that has penetrated into the laryngeal vestibule, intact cough reflex Grade II = aspiration < 10 % of the bolus, intact cough reflex Grade III = aspiration of < 10 % of the bolus, reduced cough reflex or aspiration of > 10 % of the bolus, intact cough reflex Grade IV = aspiration of > 10 % of the bolus, reduced cough reflex PENETRATION / ASPIRATION SCALE (SCORE) WITH VIDEOFLOROSCOPIC SCALE SCORE: Thin liquid - 5 mL tsp.: 8 - Grade III Sweet Grass thickened liquids via cup (single sip): 1 Sweet [place] thickened liquids via cup (single sip): 1 [place] thickened liquids via cup (single sip): 1 [place] thickened liquids via cup (single sip): 1 [place] thickened liquids via cup (sequential swallows): 1 [place] thickened liquids via cup (sequential swallows): 1 Pudding via spoon: 1 Regular textured cookie: 1 [place] thickened liquids via cup (single sip): 1 [place] thickened liquids via cup (single sip): 8 - Grade III Honey thickened liquids via cup (single sip): 1 Honey thickened liquids via cup (single sip): 1 Honey thickened liquids via cup (single sip): 1 IMPRESSION: DIAGNOSIS: moderate to severe oropharyngeal dysphagia (R13.12) ORAL PHASE CHARACTERIZED BY: LABIAL SEAL: no labial escape TONGUE CONTROL DURING BOLUS MANIPULATION: escape to lateral buccal cavity/ floor of mouth BOLUS PREPARATION / MASTICATION: disorganized chewing/mashing with solid pieces of bolus unchewed BOLUS TRANSPORT / LINGUAL MOTION: intermittent repetitive/disorganized tongue motion (undulations) with slowed tongue motion ORAL RESIDUE: intermittent residue collection on oral structures PHARYNGEAL PHASE CHARACTERIZED BY: INITIATION OF PHARYNGEAL SWALLOW: bolus head in pyriforms at first hyoid excursion (1-2 second dwell time) SOFT PALATE ELEVATION: no bolus between soft palate and pharyngeal wall LARYNGEAL ELEVATION: partial superior movement of thyroid cartilage/partial approximation of arytenoids cartilage to epiglottic petiole ANTERIOR HYOID EXCURSION: partial anterior movement EPIGLOTTIC MOVEMENT: partial epiglottic inversion LARYNGEAL VESTIBULE CLOSURE AT HEIGHT OF SWALLOW: incomplete laryngeal vestibule closure with narrow column of air/contrast in laryngeal vestibule PHARYNGEAL STRIPPING WAVE: pharyngeal stripping wave present / diminished PHARYNGOESOPHAGEAL SEGMENT OPENING: partial distension and partial duration; partial obstruction of flow TONGUE BASE RETRACTION: narrow column of contrast between tongue base and posterior pharyngeal wall PHARYNGEAL RESIDUE: collection of residue within or on pharyngeal structures ( valleculae) ESOPHAGEAL PHASE CHARACTERIZED BY: ESOPHAGEAL BOLUS CLEARANCE IN THE UPRIGHT POSITION: complete clearance; esophageal coating EFFECTS OF TREATMENT STRATEGIES ATTEMPTED: Cough and reswallow = ineffective Reduced bolus size = moderately effective DIET TEXTURE RECOMMENDATIONS: Will recommend a pureed textured, honey thickened liquid diet. COMPENSATORY STRATEGIES RECOMMENDED: Supervision with assistance as needed, reduced bolus volume, seated upright at 90 degrees during PO intake, remain upright for 30-60 minutes post meal (GERD precaution), medications with liquid chaser, medications whole with purees, may consider crushing larger pills. INTERPRETATION OF RESULTS: Patient presents with moderate to severe oropharyngeal dysphagia (R13.12) secondary to the diagnosis of Parkinsons disease status post deep brain stimulator placement likely exacerbated from baseline presentation. Oral preparatory phase marked by mastication inefficiency with noted munching quality ; sufficient bolus breakdown when provided increased time. Oral transit marked by suboptimal lingual control with noted intermittent and mild to moderate lingual undulations that were reportedly not present at baseline, with bolus loss to the buccal cavities, no posterior bolus loss; consistent piecemeal deglutition. Pharyngeal phase marked by impaired pharyngeal swallow onset timing with 1-2 second bolus dwell time prior to deglutition contributing to pre -prandial and prandial penetration and aspiration; reduced closure of the airway during deglutition attributed to reduced hyolaryngeal excursion contributing to prandial penetration and aspiration, with insufficient laryngeal vestibule pressure generated to expel penetrated material; mild to moderate pharyngeal dysmotility attributed to overall diminished pharyngeal constriction. Insufficient (dystussia vs. atussia) delayed and / or cued cough intensity to expel penetrated material / laryngotracheal aspiration. Patient noted to SILENTLY aspirate with thin and nectar thickened liquids, with clinical assessment at bedside relying on identification of classic overt signs and symptoms of aspiration unreliable. RECOMMENDATIONS: Would strongly discourage advancement past honey thickened liquids without completion of a repeat modified barium swallow study due to the extent of aspirate identified that was SILENT in nature. Recommend a repeat modified barium swallow study within 4-6 weeks (if clinically appropriate) to further assess the presence and extent of silent and overt aspiration prior to advancement to thin liquids. Would consider implementation of the [place] Free Water Protocol (FFWP) following Patient and family education if found clinically appropriate. Would consider this Patient to be at higher risk for both undernutrition and dehydration (due to the recommended diet texture restrictions) and pulmonary complications associated with aspiration (due to the occasional limitations in mobility, presence of SILENT aspiration, and diminished cognition secondary to the diagnosis of Parkinsons); proceed cautiously. Would anticipate appropriateness for mechanical soft texture trials during first week of return to PO diet. Patient requires intensive skilled speech-language intervention targeting continued diet texture management; training and implementation of recommended compensatory strategies; training without bolus ingestion / in combination with the FFWP of recommended compensatory strategies (chin tuck posture, supraglottic swallow) with anticipated benefit during repeat assessment under fluoroscopy; training, implementation, and Patient education regarding implementation of the FFWP; Patient and caregiver education regarding dysphagia associated with Parkinsons disease; and Patient / caregiver training targeting meal preparation / thickened liquid preparation if unable to advance to baseline diet textures prior to discharge. Strongly encourage dedicated use of incentive spirometer to facilitate improved expansion and cough intensity. ADDITIONAL COMMENTS/RECOMMENDATIONS: Results and recommendations were discussed with the Patient immediately following MBS completion, with the Patient verbalizing understanding and agreement with all recommendations and education provided. IMAGE COUNT: [id number] Dangelo Arriaga M.A., CCC-CREAM DIPPER [facility] Speech-Language Pathology Department [email or web address]
--- NOTE | 2017-10-27 14:00 | RAD_ITS ---
STUDY: SWALLOWING STUDY REASON FOR EXAM: Male, 77 years old. Dysphasia. TECHNIQUE: The examination was performed with Speech Pathology in attendance. Under fluoroscopic observation, the patient ingested thin barium, thick barium, barium pudding, and barium coated cracker. FLUOROSCOPY TIME: 3:10 minutes/seconds. 3121 fluoroscopic images were obtained. RADIOLOGIST INVOLVEMENT: Radiologist was present and providing direct supervision. COMPARISON: None. FINDINGS: The following was observed during swallowing of the various mixtures of barium: Thin Barium: There was no evidence of aspiration or laryngeal penetration. Barium Pudding: There was no evidence of aspiration or laryngeal penetration. Barium Coated Cracker: There was no evidence of aspiration or laryngeal penetration. RAD/Swallowing Function w/Video IMPRESSION: Normal tailored barium swallow study. No evidence of increased risk for aspiration. The swallow study findings were discussed with the patient by the speech pathologist at the conclusion of the examination. Please see speech pathology report for more information and recommendations. Electronically Signed: Den Betancur MD at 8:23 EDT Tel [phone], Service support ,
[2017-10-27 16:00] VITALS: BP 160/92; PULSE 68; RESP 16; TEMP 36.1; O2SAT 94
[2017-10-27 17:30] LABS: Bedside Glucose 99 mg/dL (70-110)
[2017-10-27] MEDS: Polyethylene Glycol 3350 17 GM PACKET PO (18:24)
[2017-10-27] MEDS: Bisacodyl 10 MG Suppository RECTAL (20:05)
[2017-10-27 20:10] VITALS: O2SAT 98
[2017-10-28] MEDS: Carbidopa/Levodopa 25/100 Tablet PO ×3 (06:46→16:17)
[2017-10-28] MEDS: Lisinopril 10 MG Tablet PO (06:46)
[2017-10-28] MEDS: Famotidine 20 MG Tablet 40 MG PO (06:46)
[2017-10-28] MEDS: Atenolol 50 MG Tablet 75 MG PO (06:46)
[2017-10-28] MEDS: Polyethylene Glycol 3350 17 GM PACKET PO (06:48)
[2017-10-28] MEDS: Enoxaparin 40 MG/0.4 ML Syringe SC (06:48)
[2017-10-28] MEDS: Senna/Docusate Sodium 1 Tablet 2 TABLET PO (06:55)
[2017-10-28] MEDS: Menthol/Lanolin/Calamine/Znox 113 GM Tube 1 APPLIC TOPICAL ×2 (06:59→20:31)
[2017-10-28 16:00] VITALS: BP 157/87; PULSE 64; RESP 16; TEMP 36.6; O2SAT 97
[2017-10-29] MEDS: Lisinopril 10 MG Tablet PO (06:37)
[2017-10-29] MEDS: Famotidine 20 MG Tablet 40 MG PO (06:37)
[2017-10-29] MEDS: Carbidopa/Levodopa 25/100 Tablet PO ×3 (06:37→17:53)
[2017-10-29] MEDS: Enoxaparin 40 MG/0.4 ML Syringe SC (06:37)
[2017-10-29] MEDS: Atenolol 50 MG Tablet 75 MG PO (06:37)
[2017-10-29] MEDS: Menthol/Lanolin/Calamine/Znox 113 GM Tube 1 APPLIC TOPICAL ×2 (06:44→23:20)
[2017-10-29 16:00] VITALS: BP 150/81; PULSE 65; RESP 20; TEMP 36.8; O2SAT 97
[2017-10-29] MEDS: Senna/Docusate Sodium 1 Tablet 2 TABLET PO (17:53)
[2017-10-30] MEDS: Atenolol 50 MG Tablet 75 MG PO (04:44)
[2017-10-30] MEDS: Famotidine 20 MG Tablet 40 MG PO (04:44)
[2017-10-30] MEDS: Enoxaparin 40 MG/0.4 ML Syringe SC (04:44)
[2017-10-30] MEDS: Lisinopril 10 MG Tablet PO (04:44)
[2017-10-30] MEDS: Menthol/Lanolin/Calamine/Znox 113 GM Tube 1 APPLIC TOPICAL ×2 (04:45→20:26)
[2017-10-30] MEDS: Polyethylene Glycol 3350 17 GM PACKET PO (04:45)
[2017-10-30] MEDS: Carbidopa/Levodopa 25/100 Tablet PO ×3 (06:28→17:24)
--- NOTE | 2017-10-30 11:18 | CASEMGMT ---
Plan of care meeting held. Resident present as well as resident spouse. No discharge date set. Resident plans to continue with further care and treatment on the Transitional Care Unit. Resident plans to discharge to home with spouse. Resident with insurance update due on 10/30/17 and aware that continued stay approval is not guaranteed. Support given. Will continue to follow. Sussy DE LA CRUZ, MARINE ENGINEER
--- NOTE | 2017-10-30 11:20 | CASEMGMT ---
Insurance Clinical information faxed. Pending continued stay approval. Auth#[id number] Sussy DE LA CRUZ, PLASTIC PARTS FABRICATOR TRIMMER
--- NOTE | 2017-10-30 11:22 | CASEMGMT ---
Brief interview for mental status (BIMS) and resident mood interview (PHQ-9) completed on this day. BIMS score 13/15. PHQ-9 score 05/13
--- NOTE | 2017-10-30 13:05 | MDS.RN ---
Pain interview for AVIVA 10/31/17 completed.
[2017-10-30 16:00] VITALS: BP 155/88; PULSE 66; RESP 18; TEMP 36.7; O2SAT 96
[2017-10-31] MEDS: Carbidopa/Levodopa 25/100 Tablet PO ×3 (06:23→17:08)
[2017-10-31] MEDS: Enoxaparin 40 MG/0.4 ML Syringe SC (06:23)
[2017-10-31] MEDS: Lisinopril 10 MG Tablet PO (06:23)
[2017-10-31] MEDS: Atenolol 50 MG Tablet 75 MG PO (06:23)
[2017-10-31] MEDS: Famotidine 20 MG Tablet 40 MG PO (06:23)
[2017-10-31] MEDS: Senna/Docusate Sodium 1 Tablet 2 TABLET PO (06:24)
[2017-10-31] MEDS: Menthol/Lanolin/Calamine/Znox 113 GM Tube 1 APPLIC TOPICAL ×2 (06:28→21:27)
--- NOTE | 2017-10-31 10:26 | PHA.CONS_ITS ---
<LenoraGeovani gomez D - Last Filed: 10/31/17 10:21> Progress Note - Pharmacy Subjective: TCU Admission Objective: Allergies acetaminophen [From Percocet] Adverse Reaction (Verified 10/24/17 17:26) Other oxycodone [From Percocet] Adverse Reaction (Verified 10/24/17 17:26) Other rivaroxaban [From Xarelto] Adverse Reaction (Verified 10/24/17 17:52) Other Current Medications Generic Name Dose Route Start Last Admin Trade Name Freq PRN Reason Stop Dose Admin Hydrocodone Bitart/Acetaminophen 1 tablet 10/27/17 16:50 [place] 5mg-325mg PO Q6H PRN PRN MODERATE PAIN (4-5/10) Al Hydroxide/Mg Hydroxide 30 ml 10/27/17 16:50 Mylanta Ii PO Q6H PRN PRN INDIGESTION Atenolol 75 mg 10/28/17 06:00 10/31/17 06:23 Tenormin (Beta Ebenezer) PO 75 mg DAILY KEVIN Administration Bisacodyl 10 mg 10/24/17 19:55 10/27/17 20:05 Dulcolax RECTAL 10 mg DAILY PRN Administration Constipation Calamine/Phenol 1 applic 10/24/17 22:00 10/31/17 06:28 Calmoseptine Ointment TOPICAL 1 applicatio 0600,2200 KEVIN Administration Protocol Carbidopa/Levodopa 1 tablet 10/27/17 06:45 10/31/17 06:23 Sinemet PO 1 tablet TIDAC KEVIN Administration Enoxaparin Sodium 40 mg 10/25/17 06:00 10/31/17 06:23 Lovenox SC 40 mg DAILY@0600 KEVIN Administration Famotidine 40 mg 10/28/17 06:00 10/31/17 06:23 Pepcid PO 40 mg DAILY KEVIN Administration Lisinopril 10 mg 10/28/17 06:00 10/31/17 06:23 Zestril PO 10 mg DAILY KEVIN Administration Non-Formulary Medication 50 mg 10/31/17 07:45 10/31/17 09:14 Parsitan PO 50 mg TIDCM KEVIN Administration Ondansetron HCl 4 mg 10/25/17 23:21 10/26/17 00:47 Zofran Odt PO 4 mg Q4H PRN PRN Administration NAUSEA/VOMITING Polyethylene Glycol 17 gm 10/28/17 06:00 10/31/17 06:24 Miralax PO Not Given DAILY KEVIN Senna/Docusate Sodium 2 tablet 10/28/17 06:00 10/31/17 06:24 Senokot-S, Josie-Colace PO 2 tablet BID KEVIN Administration Tuberculin PPD 5 tu 11/01/17 10:00 Tubersol, Aplisol, Ppd ID 11/01/17 10:01 X1 ONE Problem List BPH (benign prostatic hyperplasia) (Chronic) Osteoarthritis (Chronic) GERD (gastroesophageal reflux disease) (Chronic) Aspiration pneumonia (Acute) Dysphagia (Acute) Vital Signs Temp Pulse Resp BP Pulse Ox 98.0 F 66 18 155/88 H 96 10/30/17 16:00 10/30/17 16:00 10/30/17 16:00 10/30/17 16:00 10/30/17 16:00 Oxygen Delivery Method Room Air Weight: 68.719 kg Body Mass Index (BMI) 27.5 Sodium 138 mmol/L (136-145) 10/25/17 08:00 Potassium 3.6 mmol/L (3.5-5.1) 10/25/17 08:00 Chloride 104 mmol/L (98-107) 10/25/17 08:00 Carbon Dioxide 26.0 mmol/L (21.0-32.0) 10/25/17 08:00 Anion Gap 8 (5-15) 10/25/17 08:00 BUN 44 mg/dL (7-18) H 10/25/17 08:00 Creatinine 0.81 mg/dL (0.70-1.30) 10/25/17 08:00 Est GFR (MDRD) Af Amer 119 mL/min (>60) 10/25/17 08:00 Est GFR (MDRD) Non-Af 98 mL/min (>60) 10/25/17 08:00 BUN/Creatinine Ratio 54.3 RATIO (10-20) H 10/25/17 08:00 Glucose 116 mg/dL (74-106) H 10/25/17 08:00 Assessment/Plan: 1) Pain Hydrocodone/APAP for moderate pain. Continue to monitor daily pain scores, prn medication use. 2) HTN Lisinopril, atenolol. Continue to monitor BP/HR, renal function, electrolytes. 3) Parkinson's Carbidopa/Levodopa, Parsitan. Continue to monitor clinically. 4) GI Famotidine, ondansetron prn, Maalox prn. Continue to monitor prn medication use, for GI distress. 5) DVT PPx Enoxaparin daily. Continue to monitor s/s bleeding/clot. Psychotropic Medications: None Unnecessary Medications: None Bowel Regimen: 6) Senna/s, PEG, prn bisacodyl. Continue to monitor prn medication use, for constipation/diarrhea. Date of Note:: 10/31/17 - Provider Comments Provider responsibility: Provider responsible to enter orders to implement recommendations <Ivan Bhandari Chi - Last Filed: 10/31/17 14:41> Progress Note - Pharmacy Subjective: [] Objective: Allergies acetaminophen [From Percocet] Adverse Reaction (Verified 10/24/17 17:26) Other oxycodone [From Percocet] Adverse Reaction (Verified 10/24/17 17:26) Other rivaroxaban [From Xarelto] Adverse Reaction (Verified 10/24/17 17:52) Other Current Medications Generic Name Dose Route Start Last Admin Trade Name Freq PRN Reason Stop Dose Admin Hydrocodone Bitart/Acetaminophen 1 tablet 10/27/17 16:50 [place] 5mg-325mg PO Q6H PRN PRN MODERATE PAIN (4-5/10) Al Hydroxide/Mg Hydroxide 30 ml 10/27/17 16:50 Mylanta Ii PO Q6H PRN PRN INDIGESTION Atenolol 75 mg 10/28/17 06:00 10/31/17 06:23 Tenormin (Beta Ebeneezr) PO 75 mg DAILY KEVIN Administration Bisacodyl 10 mg 10/24/17 19:55 10/27/17 20:05 Dulcolax RECTAL 10 mg DAILY PRN Administration Constipation Calamine/Phenol 1 applic 10/24/17 22:00 10/31/17 06:28 Calmoseptine Ointment TOPICAL 1 applicatio 0600,2200 KEVIN Administration Protocol Carbidopa/Levodopa 1 tablet 10/27/17 06:45 10/31/17 11:21 Sinemet PO 1 tablet TIDAC KEVIN Administration Enoxaparin Sodium 40 mg 10/25/17 06:00 10/31/17 06:23 Lovenox SC 40 mg DAILY@0600 KEVIN Administration Famotidine 40 mg 10/28/17 06:00 10/31/17 06:23 Pepcid PO 40 mg DAILY KEVIN Administration Lisinopril 10 mg 10/28/17 06:00 10/31/17 06:23 Zestril PO 10 mg DAILY KEVIN Administration Non-Formulary Medication 50 mg 10/31/17 07:45 10/31/17 13:10 Parsitan PO 50 mg TIDCM KEVIN Administration Ondansetron HCl 4 mg 10/25/17 23:21 10/26/17 00:47 Zofran Odt PO 4 mg Q4H PRN PRN Administration NAUSEA/VOMITING Polyethylene Glycol 17 gm 10/28/17 06:00 10/31/17 06:24 Miralax PO Not Given DAILY KEVIN Senna/Docusate Sodium 2 tablet 10/28/17 06:00 10/31/17 06:24 Senokot-S, Josie-Colace PO 2 tablet BID KEVIN Administration Tuberculin PPD 5 tu 11/01/17 10:00 Tubersol, Aplisol, Ppd ID 11/01/17 10:01 X1 ONE Problem List BPH (benign prostatic hyperplasia) (Chronic) Osteoarthritis (Chronic) GERD (gastroesophageal reflux disease) (Chronic) Aspiration pneumonia (Acute) Dysphagia (Acute) Vital Signs Temp Pulse Resp BP Pulse Ox 98.0 F 66 18 155/88 H 96 10/30/17 16:00 10/30/17 16:00 10/30/17 16:00 10/30/17 16:00 10/30/17 16:00 Oxygen Delivery Method Room Air Weight: 68.719 kg Body Mass Index (BMI) 27.5 Sodium 138 mmol/L (136-145) 10/25/17 08:00 Potassium 3.6 mmol/L (3.5-5.1) 10/25/17 08:00 Chloride 104 mmol/L (98-107) 10/25/17 08:00 Carbon Dioxide 26.0 mmol/L (21.0-32.0) 10/25/17 08:00 Anion Gap 8 (5-15) 10/25/17 08:00 BUN 44 mg/dL (7-18) H 10/25/17 08:00 Creatinine 0.81 mg/dL (0.70-1.30) 10/25/17 08:00 Est GFR (MDRD) Af Amer 119 mL/min (>60) 10/25/17 08:00 Est GFR (MDRD) Non-Af 98 mL/min (>60) 10/25/17 08:00 BUN/Creatinine Ratio 54.3 RATIO (10-20) H 10/25/17 08:00 Glucose 116 mg/dL (74-106) H 10/25/17 08:00 Assessment/Plan: Psychotropic Medications: Unnecessary Medications: Bowel Regimen: - Provider Comments Provider responsibility: Provider responsible to enter orders to implement recommendations Provider Comments to Recommendations by Pharmacy: Agree
[2017-10-31 15:20] VITALS: BP 134/70; PULSE 64; RESP 18; TEMP 36.6; O2SAT 95
--- NOTE | 2017-10-31 16:04 | CASEMGMT ---
Insurance/Social Work Phone call from insurance and continued stay is denied with last covered day 11/03/17 and d/c 11/04/17. [facility] Auth #[id number] Met with pt and in room and informed of this. Pt is agreeable to d/c home with and would like out pt PT at [facility]. agreeable. SW will followup for d/c planning. Plan: dc home 11/04/17 with and outpt PT at [facility]. JONO Kaiser
--- NOTE | 2017-10-31 18:26 | PCM.DC ---
- Discharge Diagnoses Current Active Problems: Current Active and Chronic Problems BPH (benign prostatic hyperplasia) (Chronic) Osteoarthritis (Chronic) GERD (gastroesophageal reflux disease) (Chronic) Aspiration pneumonia (Acute) Dysphagia (Acute) You will use the following diet at home:: No restrictions, Regular Your food should be the consistency of: Regular Your liquids should be the consistency of: Regular/Thin Discharge Activity: Return to Normal Activity, May Shower, Use Walker Weight Bearing Status: Weight bearing as tolerated Call your doctor if you observe: Fever of 101 or Higher, Inability to urinate, Inability to have a bowel movement, Shortness of breath, Chest pain, Uncontrolled pain Allergies/Adverse Reactions: Allergies acetaminophen [From Percocet] Adverse Reaction (Verified 10/24/17 17:26) Other oxycodone [From Percocet] Adverse Reaction (Verified 10/24/17 17:26) Other rivaroxaban [From Xarelto] Adverse Reaction (Verified 10/24/17 17:52) Other Medications to take at Discharge Atenolol [Tenormin] 75 mg GT DAILY 10/24/17 Hydrocodone Bitart/Apap 5-325 [[place] 5/325] 1 tablet GT Q6H PRN PRN 10/24/17 Mag Hydrox/Al Hydrox/Simeth [Mylanta II] 30 ml GT Q6H PRN PRN 10/24/17 Menthol/Lanolin/Calamine/Znox [Calmoseptine Ointment] 1 applic TOPICAL 0600,2200 10/24/17 Parsitan 50 mg GT TID 10/24/17 Carbidopa/Levodopa 25/100 [Sinemet 25/100] 1 tablet PO TIDAC tablet 10/31/17 Famotidine [Pepcid] 40 mg PO DAILY tablet 10/31/17 Lisinopril [Prinivil] 10 mg GT DAILY #30 tab 10/31/17 Polyethylene Glycol 3350 [Miralax] 17 gm PO DAILY packet 10/31/17 The following prescriptions were given: Lisinopril [Prinivil] 10 mg GT DAILY #30 tab Primary Care Physician: Margarito Mata MD [Primary Care Provider] - Please follow up with your Primary Care Physician in: 1 week. Test Results: Test results from this visit will be discussed in further detail at your follow-up appointment, if applicable. Please Follow Up With: Leonel Diamond MD When: [phone] Please Follow Up With: Margarito Mata MD PCP When: [phone] Proposed Discharge Date: 11/04/17
--- NOTE | 2017-10-31 18:29 | DCINST_ITS ---
- Discharge Diagnoses Current Active Problems: Current Active and Chronic Problems BPH (benign prostatic hyperplasia) (Chronic) Osteoarthritis (Chronic) GERD (gastroesophageal reflux disease) (Chronic) Aspiration pneumonia (Acute) Dysphagia (Acute) You will use the following diet at home:: No restrictions, Regular Your food should be the consistency of: Regular Your liquids should be the consistency of: Regular/Thin Discharge Activity: Return to Normal Activity, May Shower, Use Walker Weight Bearing Status: Weight bearing as tolerated Call your doctor if you observe: Fever of 101 or Higher, Inability to urinate, Inability to have a bowel movement, Shortness of breath, Chest pain, Uncontrolled pain Allergies/Adverse Reactions: Allergies acetaminophen [From Percocet] Adverse Reaction (Verified 10/24/17 17:26) Other oxycodone [From Percocet] Adverse Reaction (Verified 10/24/17 17:26) Other rivaroxaban [From Xarelto] Adverse Reaction (Verified 10/24/17 17:52) Other Medications to take at Discharge Atenolol [Tenormin] 75 mg GT DAILY 10/24/17 Hydrocodone Bitart/Apap 5-325 [[place] 5/325] 1 tablet GT Q6H PRN PRN 10/24/17 Mag Hydrox/Al Hydrox/Simeth [Mylanta II] 30 ml GT Q6H PRN PRN 10/24/17 Menthol/Lanolin/Calamine/Znox [Calmoseptine Ointment] 1 applic TOPICAL 0600, 2200 10/24/17 Parsitan 50 mg GT TID 10/24/17 Carbidopa/Levodopa 25/100 [Sinemet 25/100] 1 tablet PO TIDAC tablet 10/31/17 Famotidine [Pepcid] 40 mg PO DAILY tablet 10/31/17 Lisinopril [Prinivil] 10 mg GT DAILY #30 tab 10/31/17 Polyethylene Glycol 3350 [Miralax] 17 gm PO DAILY packet 10/31/17 The following prescriptions were given: Lisinopril [Prinivil] 10 mg GT DAILY #30 tab Primary Care Physician: Margarito Mata MD [Primary Care Provider] - Please follow up with your Primary Care Physician in: 1 week. Test Results: Test results from this visit will be discussed in further detail at your follow- up appointment, if applicable. Please Follow Up With: Leonel Diamond MD When: [phone] Please Follow Up With: Margarito Mata MD PCP When: [phone] Proposed Discharge Date: 11/04/17
--- NOTE | 2017-10-31 18:29 | PCM.DC.SUM ---
Discharge Date and Diagnosis - Problem List Patient Problems: Active and Suspected Problems Aspiration pneumonia (Acute) Dysphagia (Acute) Date of Admission: 10/24/17 Date of Discharge: 11/04/17 - Primary Discharge Diagnosis Active and Suspected Problems Aspiration pneumonia (Acute) Dysphagia (Acute) - Secondary Discharge Diagnosis Chronic Problems Neuroforaminal stenosis of lumbar spine (Chronic) Spondylolisthesis of lumbar region (Chronic) Enlarged prostate without lower urinary tract symptoms (luts) (Chronic) Lumbar radiculopathy (Chronic) Constipation (Chronic) Atrial fibrillation (Chronic) BPH (benign prostatic hyperplasia) (Chronic) Osteoarthritis (Chronic) GERD (gastroesophageal reflux disease) (Chronic) Chronic back pain (Chronic) Status post deep brain stimulator placement (Chronic) Parkinsons disease (Chronic) Hypertension (Chronic) History of atrial fibrillation (Chronic) Hospital Course and Treatment Imaging Results: 10/27/17 15:04 Diet: Regular Diet Food consistency:: Puree Liquid Consistency:: Honey Thick Dietary Modifications:: Pureed Diet Honey Thick Liquids Is pt able to select menu?: No Diet Comments: Supervision; no intake in bed, seated upright at 90 degrees; edi raza/ haim Clinical Impression(s) from Imaging Studies Abdomen X-Ray 10/25/17 17:11 IMPRESSION: No acute findings, majority of the pelvis obscured with oral contrast within the colon Electronically Signed: Niranjan Stone MD at 18:43 EDT , Service support , Operations: None Procedures: None Summary of Care Provided: The patient is a 77 year old Male with below past medical history significant for intractable right lumbar radiculopathy, underwent lumbar fusion/fixation 10/14/[address] Leonardo Diamond, complicated by hyponatremia, aspiration pneumonitis, dysphagia requiring tube feeding via Cor swapnil, admitted to TCU with debility, here for rehabilitation, strengthening, advancement of diet, prior to discharge home with spouse. Discharge home with , and outpatient Physical Therapy at [facility]. Discharge Diet: No Restrictions Discharge Activity: Return to Normal Activity, May Shower, Use Walker Weight Bearing Status: Weight bearing as tolerated Call your doctor if you observe: Fever of 101 or Higher, Inability to urinate, Inability to have a bowel movement, Shortness of breath, Chest pain, Uncontrolled pain Home Medications: Medications to take at Discharge Atenolol [Tenormin] 75 mg GT DAILY 10/24/17 Hydrocodone Bitart/Apap 5-325 [Bradley 5/325] 1 tablet GT Q6H PRN PRN 10/24/17 Mag Hydrox/Al Hydrox/Simeth [Mylanta II] 30 ml GT Q6H PRN PRN 10/24/17 Menthol/Lanolin/Calamine/Znox [Calmoseptine Ointment] 1 applic TOPICAL 0600,2200 10/24/17 Parsitan 50 mg GT TID 10/24/17 Carbidopa/Levodopa 25/100 [Sinemet 25/100] 1 tablet PO TIDAC tablet 10/31/17 Famotidine [Pepcid] 40 mg PO DAILY tablet 10/31/17 Lisinopril [Prinivil] 10 mg GT DAILY #30 tab 10/31/17 Polyethylene Glycol 3350 [Miralax] 17 gm PO DAILY packet 10/31/17 Following Prescrptions Were Given to Patient: Lisinopril [Prinivil] 10 mg GT DAILY #30 tab Primary Care Physician: Margarito Mata MD [Primary Care Provider] - Please follow up with your Primary Care Physician in: 1 week. Please Follow Up With: Leonel Diamond MD When: [phone] Please Follow Up With: Margarito Mata MD PCP When: [phone] Disposition: Home Minutes spent on discharge:: 30 Patient Condition:: Good Medical Necessity - Tobacco Use Smoking Status: Former smoker Tobacco Use: Non-smoker Meaningful Use Info Meaningful Use Diagnoses (Choose all that apply): None applicable
--- NOTE | 2017-10-31 18:32 | DS.PCM_ITS ---
Discharge Date and Diagnosis - Problem List Patient Problems: Active and Suspected Problems Aspiration pneumonia (Acute) Dysphagia (Acute) Date of Admission: 10/24/17 Date of Discharge: 11/04/17 - Primary Discharge Diagnosis Active and Suspected Problems Aspiration pneumonia (Acute) Dysphagia (Acute) - Secondary Discharge Diagnosis Chronic Problems Neuroforaminal stenosis of lumbar spine (Chronic) Spondylolisthesis of lumbar region (Chronic) Enlarged prostate without lower urinary tract symptoms (luts) (Chronic) Lumbar radiculopathy (Chronic) Constipation (Chronic) Atrial fibrillation (Chronic) BPH (benign prostatic hyperplasia) (Chronic) Osteoarthritis (Chronic) GERD (gastroesophageal reflux disease) (Chronic) Chronic back pain (Chronic) Status post deep brain stimulator placement (Chronic) Parkinsons disease (Chronic) Hypertension (Chronic) History of atrial fibrillation (Chronic) Hospital Course and Treatment Imaging Results: 10/27/17 15:04 Diet: Regular Diet Food consistency:: Puree Liquid Consistency:: Honey Thick Dietary Modifications:: Pureed Diet Honey Thick Liquids Is pt able to select menu?: No Diet Comments: Supervision; no intake in bed, seated upright at 90 degrees; edi raza/ haim Clinical Impression(s) from Imaging Studies Abdomen X-Ray 10/25/17 17:11 IMPRESSION: No acute findings, majority of the pelvis obscured with oral contrast within the colon Electronically Signed: Niranjan Stone MD at 18:43 EDT , Service support , Operations: None Procedures: None Summary of Care Provided: The patient is a 77 year old Male with below past medical history significant for intractable right lumbar radiculopathy, underwent lumbar fusion/fixation per Dr. Leonardo Diamond, complicated by hyponatremia, aspiration pneumonitis , dysphagia requiring tube feeding via Cor swapnil, admitted to TCU with debility, here for rehabilitation, strengthening, advancement of diet, prior to discharge home with spouse. Discharge home with , and outpatient Physical Therapy at [facility]. Discharge Diet: No Restrictions Discharge Activity: Return to Normal Activity, May Shower, Use Walker Weight Bearing Status: Weight bearing as tolerated Call your doctor if you observe: Fever of 101 or Higher, Inability to urinate, Inability to have a bowel movement, Shortness of breath, Chest pain, Uncontrolled pain Home Medications: Medications to take at Discharge Atenolol [Tenormin] 75 mg GT DAILY 10/24/17 Hydrocodone Bitart/Apap 5-325 [[place] 5/325] 1 tablet GT Q6H PRN PRN 10/24/17 Mag Hydrox/Al Hydrox/Simeth [Mylanta II] 30 ml GT Q6H PRN PRN 10/24/17 Menthol/Lanolin/Calamine/Znox [Calmoseptine Ointment] 1 applic TOPICAL 0600, 2200 10/24/17 Parsitan 50 mg GT TID 10/24/17 Carbidopa/Levodopa 25/100 [Sinemet 25/100] 1 tablet PO TIDAC tablet 10/31/17 Famotidine [Pepcid] 40 mg PO DAILY tablet 10/31/17 Lisinopril [Prinivil] 10 mg GT DAILY #30 tab 10/31/17 Polyethylene Glycol 3350 [Miralax] 17 gm PO DAILY packet 10/31/17 Following Prescrptions Were Given to Patient: Lisinopril [Prinivil] 10 mg GT DAILY #30 tab Primary Care Physician: Margarito Mata MD [Primary Care Provider] - Please follow up with your Primary Care Physician in: 1 week. Please Follow Up With: Leonel Diamond MD When: [phone] Please Follow Up With: Margarito Mata MD PCP When: [phone] Disposition: Home Minutes spent on discharge:: 30 Patient Condition:: Good Medical Necessity - Tobacco Use Smoking Status: Former smoker Tobacco Use: Non-smoker Meaningful Use Info Meaningful Use Diagnoses (Choose all that apply): None applicable
[2017-11-01] MEDS: Polyethylene Glycol 3350 17 GM PACKET PO (05:45)
[2017-11-01] MEDS: Menthol/Lanolin/Calamine/Znox 113 GM Tube 1 APPLIC TOPICAL ×2 (05:49→20:27)
[2017-11-01] MEDS: Enoxaparin 40 MG/0.4 ML Syringe SC (05:52)
[2017-11-01] MEDS: Carbidopa/Levodopa 25/100 Tablet PO ×3 (05:53→17:36)
[2017-11-01] MEDS: Senna/Docusate Sodium 1 Tablet 2 TABLET PO ×2 (05:53→17:36)
[2017-11-01] MEDS: Famotidine 20 MG Tablet 40 MG PO (05:53)
[2017-11-01] MEDS: Lisinopril 10 MG Tablet PO (05:53)
[2017-11-01] MEDS: Atenolol 50 MG Tablet 75 MG PO (05:53)
[2017-11-01 07:06] LABS: Absolute Lymphocyte Count 0.93 X10^3/ul (0.83-4.51); Absolute Neutrophil Count 3.7 X10^3/uL (2.0-7.7); Basophil# 0.03 X10^3/uL; Basophil% 0.6 % (0-1); Eosinophil# 0.17 X10^3/uL; Eosinophils% 3.2 % (0-5); Hematocrit 37.3 % (40-54); Hemoglobin 12.5 g/dl (13.0-16.5); Lymphocyte # 0.93 X10^3/ul (4.0); Lymphocyte % 17.3 % (19-41); Mean Corp Hgb Conc 33.5 g/gl (32-36); Mean Corpuscular Volume 95.4 fL (80-94); Mean Platelet Vol. 9.8 fl (6.2-12.0); Monocyte# 0.51 X10^3/uL; Monocyte% 9.5 % (0-10); Neutrophil # 3.74 X10^3/uL (2.7-7.7); Neutrophil % 69.4 % (47-70); POSITIVE COUNT NO; POSITIVE DIFFERENTIAL NO; POSITIVE MORPHOLOGY NO; Platelet Count 318 K/mm3 (150-450); RBC Distribution Width CV 12.4 % (11.6-14.6); RBC Distribution Width SD 41.8 fl (35.1-43.9); Red Blood Count 3.91 M/mm3 (4.6-6.2); White Blood Count 5.4 K/mm3 (4.4-11.0)
[2017-11-01 07:27] LABS: Anion Gap 8 (5-15); BUN 23 mg/dL (7-18); BUN/Creat Ratio 22.3 RATIO (10-20); Calcium,Total 8.5 mg/dL (8.5-10.1); Chloride 100 mmol/L (98-107); Creatinine, Serum 1.03 mg/dL (0.70-1.30); EST Glomerular Filtration Rate 74 mL/min (>60); Est Glom Filt Rate - Afr Amer 90 mL/min (>60); Estimated Creatinine Clearance 50.29 ml/min; Glucose 112 mg/dL (74-106); Potassium 3.3 mmol/L (3.5-5.1); Sodium Level 139 mmol/L (136-145)
[2017-11-01] MEDS: Tuberculin,Purif.prot.deriv. 50 TU/ML Vial 5 ML ID (14:07)
[2017-11-01 15:48] VITALS: BP 138/73; PULSE 68; RESP 20; TEMP 36.3; O2SAT 94
[2017-11-02] MEDS: Atenolol 50 MG Tablet 75 MG PO (05:16)
[2017-11-02] MEDS: Famotidine 20 MG Tablet 40 MG PO (05:16)
[2017-11-02] MEDS: Lisinopril 10 MG Tablet PO (05:16)
[2017-11-02] MEDS: Enoxaparin 40 MG/0.4 ML Syringe SC (05:16)
[2017-11-02] MEDS: Carbidopa/Levodopa 25/100 Tablet PO ×3 (05:16→17:09)
[2017-11-02] MEDS: Menthol/Lanolin/Calamine/Znox 113 GM Tube 1 APPLIC TOPICAL ×2 (05:21→19:49)
[2017-11-02 05:58] LABS: Anion Gap 8 (5-15); BUN 18 mg/dL (7-18); BUN/Creat Ratio 19.6 RATIO (10-20); Calcium,Total 8.6 mg/dL (8.5-10.1); Chloride 105 mmol/L (98-107); Creatinine, Serum 0.92 mg/dL (0.70-1.30); EST Glomerular Filtration Rate 85 mL/min (>60); Est Glom Filt Rate - Afr Amer 103 mL/min (>60); Glucose 97 mg/dL (74-106); Potassium 3.6 mmol/L (3.5-5.1); Sodium Level 144 mmol/L (136-145)
[2017-11-02 09:27] VITALS: PULSE 61; RESP 16; O2SAT 98
[2017-11-02 15:57] VITALS: BP 131/73; PULSE 63; RESP 18; TEMP 36.8; O2SAT 99
[2017-11-03] MEDS: Menthol/Lanolin/Calamine/Znox 113 GM Tube 1 APPLIC TOPICAL ×2 (05:14→19:48)
[2017-11-03] MEDS: Enoxaparin 40 MG/0.4 ML Syringe SC (05:15)
[2017-11-03] MEDS: Atenolol 50 MG Tablet 75 MG PO (05:15)
[2017-11-03] MEDS: Famotidine 20 MG Tablet 40 MG PO (05:17)
[2017-11-03] MEDS: Lisinopril 10 MG Tablet PO (05:18)
[2017-11-03] MEDS: Carbidopa/Levodopa 25/100 Tablet PO ×3 (05:19→17:01)
--- NOTE | 2017-11-03 10:49 | CASEMGMT ---
Social Work PT plans to d/c home tomorrow 11/04/17 with . Pt requesting continued therapy from [facility] and team is agreeable to this plan. Phone call to [facility] and orders will need faxed. to make appt, pt is aware and states he will notify of this. Will fax referral to [facility] when orders obtained. No further d/c needs. Plan: home with spouse and outpt PT at [facility] JONO Kaiser
[2017-11-03 14:49] VITALS: PULSE 67; RESP 18; O2SAT 97
[2017-11-03 15:18] VITALS: BP 147/73; PULSE 66; RESP 16; TEMP 36.3; O2SAT 96
--- NOTE | 2017-11-03 18:41 | NURSING ---
Dr. Bhandari reviewed swallow study, NNO.
[2017-11-04] MEDS: Enoxaparin 40 MG/0.4 ML Syringe SC (05:42)
[2017-11-04] MEDS: Lisinopril 10 MG Tablet PO (05:42)
[2017-11-04] MEDS: Famotidine 20 MG Tablet 40 MG PO (05:42)
[2017-11-04] MEDS: Atenolol 50 MG Tablet 75 MG PO (05:42)
[2017-11-04] MEDS: Carbidopa/Levodopa 25/100 Tablet PO (05:43)
[2017-11-04] MEDS: Menthol/Lanolin/Calamine/Znox 113 GM Tube 1 APPLIC TOPICAL (05:47)
[2017-11-04 11:12] VITALS: BP 163/88; PULSE 88; RESP 20; TEMP 37.1; O2SAT 98
--- NOTE | 2017-11-04 13:08 | CASEMGMT ---
Insurance left with insurance that pt discharged today to his home with outpt PT. AUth # [phone] JONO Kaiser
--- NOTE | 2017-11-06 12:27 | MDS.RN ---
Information for the mds was obtained from review of the clinical record, interview of resident, staff, and direct observation of resident's care.
== END 2017-11-04 11:17 | disposition home or self-care (01) | DRG 560 ==
PROVIDERS: Admitting Provider Family Medicine Geriatric Medicine; Family Provider Internal Medicine; PCP Internal Medicine; Visit Provider Family Medicine Geriatric Medicine
DX: Z47.89 Encounter for other orthopedic aftercare (principal); E22.2 Syndrome of inappropriate secretion of antidiuretic hormone; Z98.1 Arthrodesis status; G20 Parkinson's disease; K21.9 Gastro-esophageal reflux disease without esophagitis; M62.838 Other muscle spasm; I10 Essential (primary) hypertension; N40.0 Benign prostatic hyperplasia without lower urinary tract symptoms; M19.90 Unspecified osteoarthritis, unspecified site; M43.16 Spondylolisthesis, lumbar region; I48.2 Chronic atrial fibrillation; G89.29 Other chronic pain; Z87.891 Personal history of nicotine dependence; R13.10 Dysphagia, unspecified; Z87.01 Personal history of pneumonia (recurrent)
CPT/HCPCS: 36415; 74019; 74230; 80048; 82962; 85025; 92526; 92610; 97110; 97116; 97162; 97167; 97530; 97535; 97802; J7030

== ENCOUNTER 2019-11-12 18:55 | Emergency (ER) | payer MEDICARE, SELFPAY ==
[2019-11-12 18:56] VITALS: BP 135/100; PULSE 85; RESP 15; TEMP 36.7; O2SAT 97; BMI 26.8
--- NOTE | 2019-11-12 19:31 | RAD_ITS ---
STUDY: X-RAY - ABDOMEN/PELVIS REASON FOR EXAM: Male, 79 years old. Constipation, last bowel movement was Friday. Lower abdominal pain. TECHNIQUE: KUB. COMPARISON: 10/25/2017. FINDINGS: Normal visualized lung bases. Nonobstructive bowel gas pattern. Large stool burden, greater on the right. No organomegaly or abnormal calcifications. Moderate degenerative changes of the thoracolumbar spine, with marked spurring and disc space narrowing. Prior fusion at L5-S1. Soft tissues and bony structures are otherwise unremarkable. RAD/Abdomen Single View IMPRESSION: 1. Large stool burden consistent with constipation. 2. Chronic findings are noted above. Electronically Signed: Viktoriya Bingham MD at 20:39 EDT Tel , Service support ,
--- NOTE | 2019-11-12 19:32 | ED.VIS.GEN ---
History of Present Illness Chief Complaint: Constipation Informant: Patient, Family Narrative: Male with a history of Parkinson's states he has not had a bowel movement since Friday. He states that today he has been unable to urinate. He states he is extremely uncomfortable and had to buy some depends as he is now leaking. He takes MiraLAX as needed but his states typically does not start taking it until he is already experiencing the patient symptoms. - Past Medical History (1) Aspiration pneumonia Status: Chronic (2) Bradycardia Status: Chronic (3) Dysphagia Status: Chronic (4) Hyponatremia Status: Chronic (5) Atrial fibrillation Status: Chronic (6) BPH (benign prostatic hyperplasia) Status: Chronic (7) Constipation Status: Chronic (8) Parkinsons disease Status: Chronic Past Medical History - Allergies and Home Meds Allergies/Adverse Reactions: Allergies acetaminophen [From Percocet] Adverse Reaction (Verified 11/12/19 18:56) Other oxycodone [From Percocet] Adverse Reaction (Verified 11/12/19 18:56) Other rivaroxaban [From Xarelto] Adverse Reaction (Verified 11/12/19 18:56) Other Primary Care Physician: Margarito Mata MD [Primary Care Provider] - 1 Week Surgical History: - - Deep Brain Stimulator implantation; L4 fusion/fixation. Smoking Status: Former smoker - Family History Maternal Family History: Reports: No pertinent history Paternal Family History: Reports: No pertinent history Review of Systems General: Denies: Chills, Fever, Sweats Eyes: Denies: Visual changes - bilaterally, Diplopia ENT: Denies: Rhinorrhea, Sore throat Cardiovascular: Denies: Chest pain, Palpitations Respiratory: Denies: Dyspnea, Cough, Dyspnea on exertion Gastrointestinal: Reports: Constipation. Denies: Abdominal pain, Nausea, Vomiting, Diarrhea, Melena, Hematochezia Genitourinary: Reports: - - Urinary retention. Denies: Dysuria, Hematuria, Frequency Musculoskeletal: Denies: Back pain, Extremity Pain Skin: Denies: Rash, Wounds Neurological: Denies: Headache, Weakness, Numbness Physical Exam Vital Signs/Narrative: Vital Signs Temp Pulse Resp BP Pulse Ox 11/12/19 18:56 98.0 F 85 15 135/100 H 97 Inital Vital Signs reviewed: Yes General: Well nourished, Well developed, No Acute Distress Head: Normocephalic, Atraumatic Eyes: Perrl, EOMI ENT: Moist mucous membranes, No rhinorrhea Neck: Supple, Nontender Cardiovascular: Regular rate, Regular rhythm, No murmurs Respiratory: No distress, CTA bilaterally, Chest nontender Abdomen: Soft, Nondistended, Normal bowel sounds, Tender - Prepubic tenderness to palpation Back: Nontender, Normal Inspection Extremities: Nontender, No edema Skin: Normal color, No rash Neurological: Alert, Oriented x3, Cranial nerves II-XII grossly intact, Normal Strength, Normal Sensation Psychological: Normal affect, Normal Mood Diagnostic/Tx/Re-eval Clinical Impression(s) from Imaging Studies KUB X-Ray 11/12/19 19:31 IMPRESSION: 1. Large stool burden consistent with constipation. 2. Chronic findings are noted above. Electronically Signed: Viktoriya Bingham MD at 20:39 EDT Tel , Service support , - Medical Decision Making Maldonado catheter was placed and over 500 cc was removed. Patient attempted to fleets enemas with minimal success. Patient will need to take some medium citrate and place himself on a daily stool softener. We will leave the Maldonado catheter in place. Hopefully after the magnesium citrate he will have a good bowel movement. If he is able to have a good bowel movement he can return and we can take the Maldonado catheter out. I am in agreement with his that waiting until he is significantly constipated and then taking MiraLAX is not going to work. ED Disposition - Plan for ED Patient: Disposition: Home or Assisted Living Diagnosis: Constipation, Acute urinary retention Instructions: ED Constipation Prescriptions: Magnesium Citrate [Citrate Of Magnesia] 300 ml PO X1 #1 bottle Prescription Printed Docusate Sodium [Colace] 100 mg PO DAILY #30 cap Prescription Printed Referrals: Margarito Mata MD [Primary Care Provider] - 1 Week
[2019-11-12] MEDS: Fleet Enema 1 ML RECTAL (20:20)
[2019-11-12 22:24] VITALS: BP 128/96; PULSE 82; RESP 16; O2SAT 98
== END 2019-11-12 22:52 | disposition home or self-care (01) ==
PROVIDERS: Emergency Provider Emergency Medicine; PCP Internal Medicine
DX: K59.00 Constipation, unspecified (principal); N40.1 Benign prostatic hyperplasia with lower urinary tract symptoms; R33.9 Retention of urine, unspecified; G20 Parkinson's disease; I48.91 Unspecified atrial fibrillation; Z88.5 Allergy status to narcotic agent; Z87.891 Personal history of nicotine dependence; R13.10 Dysphagia, unspecified
CPT/HCPCS: 51702; 74018; 99283

== ENCOUNTER 2019-11-14 15:11 | Emergency (ER) | payer MEDICARE, SELFPAY ==
[2019-11-14 15:13] VITALS: BP 153/81; PULSE 58; RESP 18; TEMP 36.6; O2SAT 100; BMI 28.3
--- NOTE | 2019-11-14 15:43 | ED.DCSUM_ITS ---
- ER Visit Summary Date of Service: 11/14/19 Chief Complaint: [Requesting to have Maldonado catheter removed] History of Present Illness: The patient is a 79 M [presents to the emergency department requesting to have his catheter removed that he had placed 2 days ago in this department. Patient apparently presented 2 days ago with constipation and urinary retention. Patient had a Maldonado catheter placed and was given magnesium citrate. Patient states that he has had multiple good bowel movement since the magnesium citrate. Patient does state that he is had some blood in the urine and some blood around the catheter. He denies any fevers. He denies nausea or vomiting. He denies abdominal pain.] Physical Examination: [HEENT-PERRLA, EOMI. Cranial nerves II through XII grossly intact. TMs clear. Mucous membranes moist. No adenopathy. Cardiovascular-regular rate and rhythm without murmur or ectopy Lungs-clear to auscultation, chest wall stable without crepitus or subcu emphysema Abdomen-normoactive bowel sounds, soft, nontender, no rebound or rigidity, no peritoneal signs. Extremities-intact ?4, normal range of motion, normal pulses, atraumatic] Test Results: [Urinalysis ordered and pending] Emergency Department Course and Treatment: [Patient had Maldonado catheter removed. Patient was able to void on his own.] Treatment Plan: [Patient did not want to wait for urinalysis results however the urine did appear cloudy and dark and given recent instrumentation was concerned about UTI. I will write him a prescription for Keflex and send off a culture. We will let him know once results are back if he should take the Keflex.] Disposition: [Discharged home in stable condition] Impression: [Maldonado catheter removal Concern for UTI] This note was generated with [employer] dictation software. It may contain incorrect words, spelling, and punctuation that were not noted in review of the chart prior to signing ED Disposition - Plan for ED Patient: Referrals: Margarito Mata MD [Primary Care Provider] -
--- NOTE | 2019-11-14 16:11 | ED.DEP ---
ED Disposition - Plan for ED Patient: Instructions: ED Urinary Retention Male, ED CYSTITIS Male Adult Prescriptions: Cephalexin [Keflex] 500 mg PO Q6 #28 cap Prescription Printed Referrals: Margarito Mata MD [Primary Care Provider] - 3-5 Days
[2019-11-14 16:15] LABS: Bacteria 0 SEEN /hpf (None Seen); Mucous, Urine 0 SEEN /hpf (<or=2+)
[2019-11-14 16:16] LABS: Color, Urine Yellow (Yellow); Glucose, Dipstick Normal (Normal); Ketone-Dipstick Negative (Negative); Leukocyte Esterase-Dipstick 100 /ul (Negative); Nitrite-Dipstick Negative (Negative); Occult Blood-Urine 250 /ul (Negative); Protein-Dipstick 30 mg/dl (Negative); Urine Bilirubin Dipstick Negative (Negative); Urine Clarity Sl. Cloudy (Clear); Urine Urobilinogen Normal (Normal)
[2019-11-14 16:29] LABS: Amorphous Sediment 1+ PHOS; Red Blood Cells-Urine > 100 SEEN /hpf (0-5); Squamous Epithelial Cells - UA 0-5 SEEN /hpf (0-5); White Blood Cells 25-50 SEEN /hpf (0-5)
== END 2019-11-14 16:21 | disposition home or self-care (01) ==
LOC: ED 15:47
PROVIDERS: Emergency Provider Emergency Medicine; PCP Internal Medicine
DX: Z46.6 Encounter for fitting and adjustment of urinary device (principal); R31.9 Hematuria, unspecified; G20 Parkinson's disease
CPT/HCPCS: 81001; 87086; 99282

== ENCOUNTER → 2021-12-17 | Outpatient (CLI) | payer MEDICARE, SELFPAY | END | disposition home or self-care (01) | LOC: LAB 10:50 | PROVIDERS: PCP Internal Medicine; Visit Provider Urology | DX: N39.41 Urge incontinence (principal) | CPT/HCPCS: 87086; 87088 ==

== ENCOUNTER 2022-02-15 15:50 | Observation (INO) | payer MEDICARE, SELFPAY ==
[2022-02-12 13:39] LABS: Hematocrit 36.9 % (40-54); Hemoglobin 12.1 g/dL (13.0-16.5); Mean Corp Hgb Conc 32.8 g/dL (32-36); Mean Corpuscular Hgb 32.1 pg (27.0-32.0); Mean Corpuscular Volume 97.9 fL (80-94); Mean Platelet Vol. 9.9 fl (6.2-12.0); Platelet Count 172 K/mm3 (150-450); RBC Distribution Width CV 11.9 % (11.6-14.6); RBC Distribution Width SD 43.2 fl (35.1-43.9); Red Blood Count 3.77 M/mm3 (4.6-6.2); White Blood Count 6.7 K/mm3 (4.4-11.0)
[2022-02-12 14:12] LABS: Anion Gap 6 (5-15); BUN 46 mg/dL (7-18); BUN/Creat Ratio 42.2 RATIO (10-20); Calcium,Total 8.9 mg/dL (8.5-10.1); Chloride 105 mmol/L (98-107); Creatinine, Serum 1.09 mg/dL (0.70-1.30); EST Glomerular Filtration Rate 69 mL/min (>60); Est Glom Filt Rate - Afr Amer 83 mL/min (>60); Glucose 120 mg/dL (74-106); Potassium 3.9 mmol/L (3.5-5.1); Sodium Level 137 mmol/L (136-145)
[2022-02-15] VITALS (10 sets, daily range): BP systolic 111–149; BP diastolic 59–80; PULSE 52–64; RESP 16–17; TEMP 36.1–37.2; O2SAT 96–99; BMI 24.2
[2022-02-15] MEDS: Lactated Ringers 1,000 ML 15 ML IV (12:10)
--- NOTE | 2022-02-15 14:00 | PROS_PTH ---
PATIENT: Shanthi RAMIREZ LOC: [facility] U#:[id number] AGE/SX: 81/M ROOM: CA319 RE02/15/[address]: Dr. Mathew Hendricks MD : 1940 BED: 1 DIS: 02/16/2022 SPEC #: [id number] RECD: 02/19/22 09:38 STATUS: PADILLA HUMPHREY #: [id number] CYNDY: 02/15/22 14:[address]: Mathew Hendricks DEPT: SURGICAL PATHOLOGY RECD BY: Keila Modi ENTERED: 02/19/22 09:38 SP TYPE: TURP OTHR DR: Dr. Margarito Mata MD Tissues: Prostate, NOS Procedures: Surgery Specimen Level IV HEADER OPERATION: Transurethral resection of prostate with Olympus PRE-OP DIAGNOSIS: Urinary retention, BPH TISSUE SUBMITTED: Prostate chips MICROSCOPIC DIAGNOSIS Prostate chips, transurethral resection: Benign prostatic hyperplasia, glandular and stromal type. Acute and chronic inflammation. SJ:josiah 02/20/2022 MICROSCOPIC DESCRIPTION Slides are reviewed. GROSS DESCRIPTION Received is one container labeled with the patient's name and designated prostate chips. The specimen consists of multiple irregular fragments of pink-sagastume, rubbery, soft tissue that in aggregate weigh 10.4 gm and measure in aggregate 6 x 5 x 0.5 cm. The entire specimen is submitted in ten cassettes. / AM:josiah 02/19/2022 TC:5 CPT: 36443
[2022-02-15] MEDS: Cefazolin 2 GM in 0.9% Normal Saline 100 ML IV (14:17)
--- NOTE | 2022-02-15 15:51 | HP.PCM_ITS ---
HPI - General General Date of Service: 02/15/22 Chief Complaint: BPH with obstruction HPI Narrative Shanthi RAMIREZ, is a 81 M who presents presents for TURP Izer BPH obstruction failed medical therapy PFSH Medical History Ambulates with cane Arthritis Back pain Cardiology follow-up encounter DVT (deep venous thrombosis) Gastric reflux History of atrial fibrillation History of echocardiogram History of edema History of stress test Hypertension Parkinson's disease Smoker Walker as ambulation aid Wears dentures Wears glasses Home Medications atenolol 50 mg tablet (Tenormin) 50 mg PO BID blood pressure 10/24/17 [History Last Taken 02/15/22] carbidopa 25 mg-levodopa 100 mg tablet 2 tab PO 4X/DAY 11/12/19 [History Last Taken 02/14/22] lisinopril 10 mg tablet 30 mg PO DAILY blood pressure 11/12/19 [History Last William en 02/15/22] mirabegron 50 mg tablet,extended release 24 hr (Myrbetriq) 50 mg PO DAILY 02/08/22 [History Last Taken 02/14/22] multivitamin 1 tab PO DAILY 02/08/22 [History Last Taken 02/14/22] omeprazole 20 mg capsule,delayed release 20 mg PO DAILY 02/08/22 [History Last Taken 02/15/22] oxybutynin chloride 10 mg tablet,extended release 24 hr 5 mg PO DAILY 02/08/22 [History Last Taken 02/14/22] ciprofloxacin HCl 500 mg tablet (Cipro) 500 mg PO BID #10 tabs 02/15/22 [Rx Last Taken Unknown] Allergy/AdvReac Type Severity Reaction Status Date / Time acetaminophen [From Percocet] AdvReac Other Verified 02/15/22 12:25 oxycodone [From Percocet] AdvReac Other Verified 02/15/22 12:25 rivaroxaban [From Xarelto] AdvReac Other Verified 02/15/22 12:25 Surgical History History of back surgery History of carpal tunnel release of both wrists Hx of prior ablation treatment Hx of shoulder surgery Hx of surgical procedure Social History Smoking Status: Former smoker Vital Signs Vital Signs Vital Signs: 02/15/22 12:27 02/15/22 12:27 Temperature 98.9 F Temperature Source Temporal Pulse Rate 61 Respiratory Rate 17 Respiratory Pattern Normal Blood Pressure 149/80 H Blood Pressure Mean 103 Blood Pressure Source Monitor Blood Pressure Position Sitting Blood Pressure Location Left Arm Pulse Ox 99 Oxygen Delivery Method Room Air Weight Weight: 64 kg Body Mass Index (BMI) 24.2 Results Lab / Micro Data Result Diagrams: 02/12/22 13:08 02/12/22 13:08
--- NOTE | 2022-02-15 15:52 | DCINST_ITS ---
Discharge Instructions Diet Discharge Diet: No restrictions, Light diet - advance as tolerated and Soft diet Activity Discharge Activity: Return to Normal Activity Follow Up Care Please Follow Up With: Mathew Hendricks MD When: CALL FOR APPT Test Results: Test results from this visit will be discussed in further detail at your follow- up appointment, if applicable. Discharge Plan Admission Primary Reason for Your Visit: TURP Attending Provider: Mathew Hendricks Primary Care Provider: Margarito Mata Discharge Orders/Prescriptions Prescriptions: New ciprofloxacin HCl [Cipro] 500 mg tablet 500 mg PO BID Qty: 10 0RF Continued atenolol [Tenormin] 50 MG tablet 50 mg PO BID lisinopril 10 MG tablet 30 mg PO DAILY carbidopa-levodopa 1 TABLET tablet 2 tab PO 4X/DAY multivitamin Tablet 1 tab PO DAILY oxybutynin chloride 10 mg Tablet Extended Release 24hr 5 mg PO DAILY Myrbetriq 50 mg Tablet Extended Release 24 Hr 50 mg PO DAILY omeprazole 20 mg Capsule,Delayed Release(Dr/Ec) 20 mg PO DAILY Referrals / Follow Up: Mathew Hendricks MD [Med Staff - Active Staff] - Margarito Mata MD [Primary Care Provider] - Disposition Disposition (needs filled in before D/C Order can be placed): Home, Self Care
--- NOTE | 2022-02-15 15:52 | PCM.OPRPT ---
Report of Operation Date of Procedure: 02/15/22 Pre-Operative Diagnosis: BPH WITH OBSTRUCTION. Post-Operative Diagnosis: SAME Surgery/Procedure Performed:: TURP Description of Surgical Findings:: In the preoperative setting I discussed with the patient how the surgery would be done with expect afterwards. We discussed how a prostate resection is done and we discussed the risk of the surgery including, bleeding, infection, retrograde ejaculation, changes with ejaculation or intercourse,. We discussed the possibility that the resection of the prostate may not alleviate his urinary symptoms. We discussed the small risk of developing scar tissue along the urethral channel and strictures. We also discussed the chance of the prostate could grow back and he may need further surgery or treatment in the future for prostate problems. Patient was taken back to the operating room, timeout procedure was performed, he was identified and marked and placed on the operating room table. He underwent general anesthesia. He was placed in dorsolithotomy position. Penis and testicles were prepped and draped in usual sterile fashion. Went into the bladder using the visual obturator with a resectoscope. Once inside the bladder identified the right and left ureteral orifice. I then identified the prostate and the anatomy of the prostate. I marked out the area of the sphincter and the verumontanum was identified. I then proceeded with the prostate resection first resected the median lobe. And then resected the right lobe of the prostate. Then to resect the left lobe of the prostate. I then resected the apical tissue of the prostate. This was a complete resection of all obstructive tissue to improve voiding and relieve obstruction. I then made sure that there was no injury to the sphincter or the verumontanum was still intact. At the end of the resection all the chips were Ellik out of the bladder. I then identified the left and right ureteral orifice and these were confirmed to be in good position and effluxing and not injured. The resectoscope was removed, a 22 Tamazight catheter was placed into the bladder on continuous irrigation. And the urine was fairly light pink color and draining normally. He was taken back to the PACU in good condition. Surgeon: Mathew Hendricks Type of Anesthesia: Spinal General Anesthesia Drains: [address] Admit VTE Documentation VTE Present on Admission: No VTE Mechan Device Prophylaxis: SCD's VTE Pharm Prophylaxis ordered?: No
[2022-02-15] MEDS: Carbidopa/Levodopa 25/100 Tablet PO ×2 (17:50→20:58)
[2022-02-15] MEDS: 0.9% Normal Saline 1,000 ML 125 ML IV (17:50)
[2022-02-15] MEDS: Atenolol 50 MG Tablet PO (20:58)
[2022-02-15] MEDS: Docusate Sodium 100 MG Capsule 200 MG PO (20:58)
[2022-02-15] MEDS: Ciprofloxacin 400 MG/200 ML BAG 200 MG IV (20:59)
[2022-02-16] MEDS: 0.9% Normal Saline 1,000 ML 125 ML IV ×2 (02:28→09:12)
[2022-02-16 02:30] VITALS: BP 149/80; PULSE 72; RESP 18; TEMP 37.3; O2SAT 94
--- NOTE | 2022-02-16 06:00 | NURSING ---
CBI stopped @ 0600 per order
[2022-02-16 08:30] VITALS: BP 169/79; PULSE 75; RESP 18; TEMP 36.9; O2SAT 95
[2022-02-16 09:00] VITALS: BP 169/79; PULSE 75; RESP 18; TEMP 36.9; O2SAT 95
[2022-02-16] MEDS: Acetaminophen 325 MG Tablet PO (09:12)
[2022-02-16] MEDS: Carbidopa/Levodopa 25/100 Tablet PO ×2 (09:14→14:32)
[2022-02-16] MEDS: Atenolol 50 MG Tablet PO (09:14)
[2022-02-16] MEDS: Pantoprazole Sodium 20 MG Tablet PO (09:14)
[2022-02-16] MEDS: Lisinopril 10 MG Tablet 30 MG PO (09:14)
[2022-02-16] MEDS: Docusate Sodium 100 MG Capsule 200 MG PO (09:14)
[2022-02-16] MEDS: Ciprofloxacin 400 MG/200 ML BAG 200 MG IV (10:43)
--- NOTE | 2022-02-16 11:11 | NURSING ---
This RN recieved a phone call from Dr Hendricks. Physician told this RN to discontinue pt's 3 way perea catheter since CBI was stopped and pt had good UO. Pt will discharge to home if pt is able to urinate. This RN removed perea at 1100 and will continue to monitor.
[2022-02-16 14:30] VITALS: BP 156/75; PULSE 66; RESP 18; TEMP 36.4; O2SAT 93
== END 2022-02-16 15:21 | disposition home or self-care (01) ==
LOC: SDC 16:08 → MS3 02-16 14:33
PROVIDERS: Anesthesiology; Admitting Provider Urology; PCP Internal Medicine; Referring Provider Urology; Visit Provider Urology
PROC: 0VT08ZZ Resection of Prostate, Via Natural or Artificial Opening Endoscopic (ICD-10-PCS; CPT 52601; principal; 2022-02-15 13:50)
DX: N40.1 Benign prostatic hyperplasia with lower urinary tract symptoms (principal); G20 Parkinson's disease; I48.91 Unspecified atrial fibrillation; I10 Essential (primary) hypertension; Z87.891 Personal history of nicotine dependence; N13.8 Other obstructive and reflux uropathy; Z79.899 Other long term (current) drug therapy; Z86.718 Personal history of other venous thrombosis and embolism; K21.9 Gastro-esophageal reflux disease without esophagitis; M19.90 Unspecified osteoarthritis, unspecified site
CPT/HCPCS: 52601; 00914; 36415; 80048; 85027; 88305; 93005; 96361; 96365; 96366; 99221; J7030; J7120; G0378; J0744

== ENCOUNTER 2022-03-04 16:43 | Emergency (ER) | payer MEDICARE, SELFPAY ==
[2022-03-04 16:43] VITALS: BP 159/74; PULSE 82; RESP 16; TEMP 36.4; O2SAT 98; BMI 24.0
--- NOTE | 2022-03-04 17:51 | CT_ITS ---
EXAM: CT ABDOMEN AND PELVIS WITHOUT INTRAVENOUS CONTRAST CLINICAL INDICATION: llq pain TECHNIQUE: Helically acquired images were obtained of the abdomen and pelvis without intravenous contrast. This CT exam was performed using one or more of the following dose reduction techniques: automated exposure control, adjustment of the mA and/or kV according to patient size, and/or use of iterative reconstruction technique. This report was created using [employer] report generation technology. COMPARISON: None. FINDINGS: LOWER THORAX: Unremarkable. Lung bases are clear. No cardiomegaly. No significant pericardial effusion. ABDOMEN: LIVER: Unremarkable. Homogeneous. GALLBLADDER AND BILE DUCTS: Unremarkable. No calcified gallstones. No gallbladder distention or wall edema. No intra- or extrahepatic biliary ductal dilation. PANCREAS: Unremarkable. No focal cystic mass. SPLEEN: Unremarkable. Normal size without focal cystic or solid mass. ADRENALS: Unremarkable. No nodules. KIDNEYS AND URETERS: Unremarkable. Normal renal size and position. No hydronephrosis. STOMACH AND BOWEL: There is moderate stool seen throughout the colon. There is stool in the rectal vault which may represent developing fecal impaction. No stomach or bowel distention. No focal inflammatory change. PELVIS: APPENDIX: No evidence of acute appendicitis. BLADDER: There is a Maldonado catheter in the bladder. REPRODUCTIVE: Unremarkable as visualized. No mass. ABDOMEN and PELVIS: INTRAPERITONEAL SPACE: Unremarkable. No ascites or other fluid collection. No free air. BONES/JOINTS: There are posterior fusion of L5 and S1. No suspicious lytic or blastic abnormality. SOFT TISSUES: Unremarkable. No discrete abdominal or pelvic wall hernia. VASCULATURE: Unremarkable. Abdominal aorta is non-dilated. LYMPH NODES: Unremarkable. No enlarged lymph nodes. CT/Abdomen/Pelvis without Cont IMPRESSION: Moderate stool seen throughout the colon compatible with constipation. There is a moderate amount stool in the rectal vault which may represent a fecal impaction. Electronically Signed: Dustin Bhat MD at 18:58 EST ,
--- NOTE | 2022-03-04 17:52 | EX.ED.DYSGE1 ---
HPI History of Present Illness Chief Complaint: Complaint Informant: patient and spouse/S.O. Narrative Narrative: Presenting with concerns for urine retention. He reported pain lower abdomen left side since this morning. Not been over 6 hours. 2 weeks ago had prostate procedure by Dr. Ruggiero he was kept overnight Maldonado cath removed has been urinating since. States no bowel movement 2 days typically goes every other day. No fevers. No nausea or vomiting. History of diverticulitis in the past 6 feels different. Colonoscopies in the past last time 6 or 7 years ago. Denies any intra-abdominal surgeries. Prior similar symptoms: Yes [facility] Medical History Ambulates with cane Arthritis Back pain Cardiology follow-up encounter DVT (deep venous thrombosis) Gastric reflux History of atrial fibrillation History of echocardiogram History of edema History of stress test Hypertension Parkinson's disease Smoker Walker as ambulation aid Wears dentures Wears glasses Home Medications atenolol 50 mg tablet (Tenormin) 50 mg PO BID blood pressure 10/24/17 [History Last Taken 02/15/22] carbidopa 25 mg-levodopa 100 mg tablet 2 tab PO 4X/DAY 11/12/19 [History Last Taken 02/14/22] lisinopril 10 mg tablet 30 mg PO DAILY blood pressure 11/12/19 [History Last Taken 02/15/22] mirabegron 50 mg tablet,extended release 24 hr (Myrbetriq) 50 mg PO DAILY 02/08/22 [History Last Taken 02/14/22] multivitamin 1 tab PO DAILY 02/08/22 [History Last Taken 02/14/22] omeprazole 20 mg capsule,delayed release 20 mg PO DAILY 02/08/22 [History Last Taken 02/15/22] oxybutynin chloride 10 mg tablet,extended release 24 hr 5 mg PO DAILY 02/08/22 [History Last Taken 02/14/22] ciprofloxacin HCl 500 mg tablet (Cipro) 500 mg PO BID #10 tabs 02/15/22 [Rx Last Taken Unknown] cephalexin 500 mg capsule 500 mg PO Q12 #14 caps 03/04/22 [Rx Last Taken Unknown] Allergy/AdvReac Type Severity Reaction Status Date / Time oxycodone [From Percocet] AdvReac Other Verified 03/04/22 16:45 rivaroxaban [From Xarelto] AdvReac Other Verified 03/04/22 16:45 Surgical History History of back surgery History of carpal tunnel release of both wrists Hx of prior ablation treatment Hx of shoulder surgery Hx of surgical procedure Social History Smoking Status: Former smoker ROS ROS ED Constitutional Constitutional ED: Denies chills, fever(s) or sweats Eyes Eyes: Denies change in vision ENT ENT ED: Denies dysphagia or sore throat Cardiovascular Cardiovascular: Denies chest pain, leg edema, palpitations or racing heartbeat Respiratory/Chest Respiratory/Chest: Denies cough, dyspnea or dyspnea on exertion Gastrointestinal Gastrointestinal: Reports abdominal pain; Denies diarrhea, nausea or vomiting Genitourinary Genitourinary ED: Denies dysuria, hematuria or urinary frequency Musculoskeletal Musculoskeletal: Denies back pain, extremity pain or neck pain Integumentary Denies rash or wounds Neurologic Neurologic: Denies headache(s), paresthesias or weakness EXAM Physical Exam Const Vital Signs: 03/04/22 16:43 03/04/22 19:53 Temperature 97.6 F L Temperature Source Temporal Pulse Rate 82 82 Respiratory Rate 16 16 Blood Pressure 159/74 H 142/76 H Blood Pressure Mean 102 98 Pulse Ox 98 96 Oxygen Delivery Method Room Air Room Air Positive well nourished and well developed General Appearance ED: well developed and NAD HEENT Reports moist mucous membranes normocephalic and atraumatic Eyes PERRL, EOMs intact bilaterally and conjunctivae normal General Eye ED: Yes normal appearance of both eyes Neck no lymphadenopathy and supple General: Negative for tenderness Chest Wall Chest: Negative for tenderness Resp normal respiratory effort and normal air movement Effort and Inspection: symmetric chest movement; Negative for respiratory distress Cardio regular rate, regular rhythm and no murmurs Peripheral Pulses: pulses 2+ throughout GI normal to inspection, nondistended, normoactive bowel sounds GI Narrative: Mild tenderness left lower quadrant there is no guarding or rebound. Negative Olsen's or McBurney's tender Palpation: Negative for guarding or rebound tenderness present Narrative: Maldonado catheter placed through triage an hour prior to my evaluation notes a total 300 cc of urine output dark in color. No gross bleeding. Back/Spine no CVA tenderness and no thoracic nor lumbar tenderness Extremity normal to inspection General Extremety ED: Negative for edema or tenderness General Extremity: Negative for edema Neuro oriented x3 and no sensory deficits noted Sensorium / Orientation: awake and alert Skin no rashes or lesions noted and no wounds MDM MDM MDM Narrative Medical decision making narrative: Maldonado catheter placed from triage initial differential is urine retention, constipation, UTI versus diverticulitis versus kidney stones. After Maldonado placement he states temporary relief however pain started coming back. Labs and CT scan ordered for further evaluation. Urine to be sent for analysis with cultures. He declined any pain medicines during initial evaluation. Obtained and reviewed laboratory studies White count normal 8.8 hemoglobin 12.6. Urine from Maldonado positive leukocytes and white cells and bacteria. Urine culture sent. Reports urgency symptoms. Maldonado catheter with less than 300 cc over 1 hour therefore no retention. Maldonado catheter was removed. CT scan abdomen pelvis interpreted myself and read by radiology negative for diverticulitis however a large fecal impaction in the rectum. I did disimpaction manually, additional fleets enema with multiple bowel movements with improving symptoms. Abdomen soft on reevaluation. He is covered for his urinary tract infection with Keflex. He is on MiraLAX, discussed using this daily to help with bowel movements. Return precautions. All questions were answered. Lab Data Attestation: I reviewed the patient's lab results. Labs: Laboratory Results - last 24 hr 03/04/22 03/04/22 18:05 18:50 WBC 8.8 RBC 4.01 L Hgb 12.6 L Hct 38.8 L MCV 96.8 H MCH 31.4 MCHC 32.5 RDW Std Deviation 43.6 RDW Coeff of Heather 12.2 Plt Count 254 MPV 10.2 Immature Gran % (Auto) 0.500 Neut % (Auto) 85.4 H Lymph % (Auto) 4.8 L [place] % (Auto) 8.2 Eos % (Auto) 0.6 Baso % (Auto) 0.5 Absolute Neuts (auto) 7.6 Absolute Lymphs (auto) 0.42 L Nucleated RBC % 0 Differential Comment SCANNED Urine Color Yellow Urine Clarity Cloudy Urine pH 7.0 Ur Specific [place] 1.010 Urine Protein 30 H Urine Glucose (UA) Normal Urine Ketones 5 H Urine Occult Blood 250 H Urine Nitrite Negative Urine Bilirubin Negative Urine Urobilinogen Normal Ur Leukocyte Esterase 500 H Urine RBC > 100 SEEN Urine WBC 10-25 SEEN Ur Squamous Epith Cells 0 SEEN Urine Bacteria 1+ Urine Mucus 0 SEEN Radiography Diagnostic Testing: Clinical Impression(s) from Imaging Studies Abdomen/Pelvis CT 03/04/22 17:51 IMPRESSION: Moderate stool seen throughout the colon compatible with constipation. There is a moderate amount stool in the rectal vault which may represent a fecal impaction. Electronically Signed: Dustin Bhat MD at 18:58 EST , Discharge Plan Triage Chief Complaint: Complaint ED Provider: Rico Neil Dx/Rx/DC Orders Clinical Impression: Acute constipation, Acute UTI Instructions: ED Constipation (Adult), ED Urinary Tract Infections in Men Prescriptions: New cephalexin [cephalexin] 500 mg capsule 500 mg PO Q12 Qty: 14 0RF No Action atenolol [Tenormin] 50 MG tablet 50 mg PO BID lisinopril 10 MG tablet 30 mg PO DAILY carbidopa-levodopa 1 TABLET tablet 2 tab PO 4X/DAY multivitamin Tablet 1 tab PO DAILY oxybutynin chloride 10 mg Tablet Extended Release 24hr 5 mg PO DAILY Myrbetriq 50 mg Tablet Extended Release 24 Hr 50 mg PO DAILY omeprazole 20 mg Capsule,Delayed Release(Dr/Ec) 20 mg PO DAILY ciprofloxacin HCl [Cipro] 500 mg tablet 500 mg PO BID Qty: 10 0RF Primary Care Provider: Margarito Mata Referrals: Margarito Mata MD [Primary Care Provider] - 5-7 Days Activity Restrictions/Additional Instructions: No urine retention from Maldonado catheter. Findings UTI you are constipated on CT there is no inflammation. Disimpaction and enema given with improvement. Use your MiraLAX daily. Follow-up with your doctor. Return if any worsening symptoms. Disposition Disposition: Home, Self Care Discharge Date/Time: 03/04/22 22:10
[2022-03-04 18:23] LABS: Absolute Lymphocyte Count 0.42 X10^3/uL (0.83-4.51); Absolute Neutrophil Count 7.6 X10^3/uL (2.0-7.7); Basophil# 0.04 X10^3/uL; Basophil% 0.5 % (0-1); Eosinophil# 0.05 X10^3/uL; Eosinophils% 0.6 % (0-5); Hematocrit 38.8 % (40-54); Hemoglobin 12.6 g/dL (13.0-16.5); Lymphocyte # 0.42 X10^3/ul (0.83-4.51); Lymphocyte % 4.8 % (19-41); Mean Corp Hgb Conc 32.5 g/dL (32-36); Mean Corpuscular Hgb 31.4 pg (27.0-32.0); Mean Corpuscular Volume 96.8 fL (80-94); Mean Platelet Vol. 10.2 fl (6.2-12.0); Monocyte# 0.72 X10^3/uL; Monocyte% 8.2 % (0-10); NRBC Flagged by Analyzer 0 % (0-5); Neutrophil # 7.56 X10^3/uL (2.7-7.7); Neutrophil % 85.4 % (47-70); POSITIVE DIFFERENTIAL YES; Platelet Count 254 K/mm3 (150-450); RBC Distribution Width CV 12.2 % (11.6-14.6); RBC Distribution Width SD 43.6 fl (35.1-43.9); Red Blood Count 4.01 M/mm3 (4.6-6.2); White Blood Count 8.8 K/mm3 (4.4-11.0)
[2022-03-04 18:24] LABS: Differential Indicated SCAN CRITERIA MET
[2022-03-04 18:51] LABS: Differential Comment SCANNED
[2022-03-04 18:56] LABS: Mucous, Urine 0 SEEN /hpf (<or=2+); Squamous Epithelial Cells - UA 0 SEEN /hpf (0-5)
[2022-03-04 18:57] LABS: Color, Urine Yellow (Yellow); Glucose, Dipstick Normal (Normal); Ketone-Dipstick 5 mg/dl (Negative); Leukocyte Esterase-Dipstick 500 /ul (Negative); Nitrite-Dipstick Negative (Negative); Occult Blood-Urine 250 /ul (Negative); Protein-Dipstick 30 mg/dl (Negative); Urine Bilirubin Dipstick Negative (Negative); Urine Clarity Cloudy (Clear); Urine Urobilinogen Normal (Normal)
[2022-03-04 19:05] LABS: Bacteria 1+ /hpf (None Seen); Red Blood Cells-Urine > 100 SEEN /hpf (0-5); White Blood Cells 10-25 SEEN /hpf (0-5)
[2022-03-04 19:53] VITALS: BP 142/76; PULSE 82; RESP 16; O2SAT 96
[2022-03-04] MEDS: Fleet Enema 1 ML RC (20:17)
[2022-03-04] MEDS: Cephalexin 250 MG Capsule 500 MG PO (21:23)
== END 2022-03-04 22:10 | disposition home or self-care (01) ==
PROVIDERS: Emergency Provider Emergency Medicine; PCP Internal Medicine; Visit Provider Emergency Medicine
DX: N39.0 Urinary tract infection, site not specified (principal); G20 Parkinson's disease; K56.41 Fecal impaction; I10 Essential (primary) hypertension; Z87.891 Personal history of nicotine dependence; Z86.718 Personal history of other venous thrombosis and embolism; K21.9 Gastro-esophageal reflux disease without esophagitis
CPT/HCPCS: 74176; 81001; 85025; 87086; 99283; A4216

== ENCOUNTER → 2022-03-15 | Outpatient (CLI) | payer MEDICARE, SELFPAY | END | disposition home or self-care (01) | LOC: LAB 12:40 | PROVIDERS: PCP Internal Medicine; Referring Provider Urology; Visit Provider Urology | DX: R35.0 Frequency of micturition (principal) | CPT/HCPCS: 87086 ==

== ENCOUNTER 2022-07-17 07:24 | Day surgery (SDC) | payer MEDICARE, SELFPAY ==
[2022-07-17 08:01] VITALS: BP 135/66; PULSE 58; RESP 17; TEMP 36.3; O2SAT 99; BMI 24.5
[2022-07-17] MEDS: Lactated Ringers 1,000 ML 15 ML IV (08:01)
[2022-07-17] MEDS: Cefazolin 2 GM in 0.9% Normal Saline 100 ML IV (09:27)
--- NOTE | 2022-07-17 09:33 | PCM.HP.STD ---
[facility] - General General Date of Service: 07/17/22 Chief Complaint: Urge incontinence HPI Narrative Shanthi RAMIREZ, is a 82 M who presents for Botox injection 200 units in the bladder he has a history of Parkinson's disease and severe urge incontinence has failed other procedures as failed medications working to try higher dose of Botox 200 units. He tried 100 units in the office and it was not effective in controlling his bladder control. [facility] Medical History Arthritis Back pain Bladder disease Cardiology follow-up encounter DVT (deep venous thrombosis) Gastric reflux History of atrial fibrillation History of echocardiogram History of edema History of stress test Hypertension Parkinson's disease Smoker Walker as ambulation aid Wears dentures Wears glasses Home Medications atenolol 50 mg tablet (Tenormin) 50 mg PO BID blood pressure 10/24/17 [History Last Taken 07/17/22] carbidopa 25 mg-levodopa 100 mg tablet 2 tab PO TID 11/12/19 [History Last Taken 07/17/22] lisinopril 10 mg tablet 30 mg PO DAILY blood pressure 11/12/19 [History Last Taken 07/17/22] multivitamin 1 tab PO DAILY 02/08/22 [History Last Taken 07/17/22] omeprazole 20 mg capsule,delayed release 20 mg PO DAILY 02/08/22 [History Last Taken 07/17/22] ciprofloxacin HCl 500 mg tablet (Cipro) 500 mg PO BID #10 tabs 07/17/22 [Rx Last Taken Unknown] Allergy/AdvReac Type Severity Reaction Status Date / Time oxycodone [From Percocet] AdvReac Other Verified 07/17/22 08:01 rivaroxaban [From Xarelto] AdvReac Other Verified 07/17/22 08:01 Surgical History History of back surgery History of carpal tunnel release of both wrists Hx of colonoscopy Hx of left cataract extraction Hx of prior ablation treatment Hx of right cataract extraction Hx of shoulder surgery Hx of surgical procedure Hx of transurethral resection of prostate Social History Smoking Status: Former smoker Vital Signs Vital Signs Vital Signs: 07/17/22 08:01 07/17/22 08:01 Temperature 97.4 F L Temperature Source Temporal Pulse Rate 58 L Respiratory Rate 17 Respiratory Pattern Normal Blood Pressure 135/66 H Blood Pressure Mean 89 Blood Pressure Source Monitor Blood Pressure Position Semi-Fowlers Blood Pressure Location Left Arm Pulse Ox 99 Oxygen Delivery Method Room Air Weight Weight: 65 kg Body Mass Index (BMI) 24.5
--- NOTE | 2022-07-17 09:34 | DCINST_ITS ---
Discharge Instructions Diet Discharge Diet: No restrictions Follow Up Care Please Follow Up With: Mathew Hendricks MD Test Results: Test results from this visit will be discussed in further detail at your follow- up appointment, if applicable. Discharge Plan Admission Primary Reason for Your Visit: botox injection Attending Provider: Mathew Hendricks Primary Care Provider: Margarito Mata Discharge Orders/Prescriptions Prescriptions: New ciprofloxacin HCl [Cipro] 500 mg tablet 500 mg PO BID Qty: 10 0RF Continued atenolol [Tenormin] 50 MG tablet 50 mg PO BID lisinopril 10 MG tablet 30 mg PO DAILY carbidopa-levodopa 1 TABLET tablet 2 tab PO TID multivitamin Tablet 1 tab PO DAILY omeprazole 20 mg Capsule,Delayed Release(Dr/Ec) 20 mg PO DAILY Referrals / Follow Up: Margarito Mata MD [Primary Care Provider] - Disposition Disposition (needs filled in before D/C Order can be placed): Home, Self Care
--- NOTE | 2022-07-17 09:35 | OP.PCM_ITS ---
Report of Operation Date of Procedure: 07/17/22 Pre-Operative Diagnosis: Urge incontinence and frequency Post-Operative Diagnosis: The same Surgery/Procedure Performed:: Cystoscopy and Botox injection 200 units Description of Surgical Findings:: Patient has a history of an urge incontinence which is failed conservative measures and medical therapy. Today the patient presents to the hospital for an injection of Botox into the bladder. The patient understands the risk of the procedure involved bleeding, infection, paralytic bladder and failure to empty the bladder. The possibility of needing a catheter or self intermittent catheterization of the bladder is not able to function properly. The risk of infection and bleeding and the risk of anesthesia was discussed with the patient. Patient signed the consent form and we proceeded to the operating room. Patient was taken back to the operating room after induction of anesthesia, the patient was placed supine on the table in the legs were placed in dorsolithotomy position. The genitals and urethra were prepped and draped in usual sterile fashion. Using a 21 [place] offset cystoscope I went into the bladder via the urethra. The bladder was inspected. The trigone was normal. The left and right ureter orifice were identified. On the back table the Botox medication was prepared per the customer service analyst's instruction, a total of 200 units of Botox were prepared. We then used a Botox needle through the cystoscope and then injected 0.5 cc of Botox solution into each site going through a matrix pattern in the back of the bladder to inject about every centimeter across the back of the bladder in several layers avoiding the trigone. After a total of 200 units of Botox was injected into the bladder there was minimal bleeding. The bladder was drained. The patient's anesthetic was reversed and the patient was taken back to the PACU in stable condition. Surgeon: Mathew Hendricks Type of Anesthesia: General Drains: none Estimated Blood Loss (mL): 0
[2022-07-17] MEDS: Botulinum Toxin A 100 Units Vial 200 UNITS IJ (09:48)
[2022-07-17 10:00] VITALS: BP 105/59; BP 135/66; PULSE 52; RESP 14; TEMP 36.4; O2SAT 97
[2022-07-17 10:05] VITALS: BP 112/59; BP 135/66; PULSE 48; RESP 14; O2SAT 98
[2022-07-17 10:10] VITALS: BP 114/56; BP 135/66; PULSE 50; RESP 14; O2SAT 99
[2022-07-17 10:15] VITALS: BP 118/61; BP 135/66; PULSE 50; RESP 16; TEMP 36.5; O2SAT 98
[2022-07-17 10:37] VITALS: BP 135/66
== END 2022-07-17 11:15 | disposition home or self-care (01) ==
LOC: SDC 07:26 → AC 07:29
PROVIDERS: PCP Internal Medicine; Referring Provider Urology; Visit Provider Urology
PROC: 3E0K8GC Introduction of Other Therapeutic Substance into Genitourinary Tract, Via Natural or Artificial Opening Endoscopic (ICD-10-PCS; CPT 52287; principal; 2022-07-17 09:25)
DX: N39.41 Urge incontinence (principal); G21.19 Other drug induced secondary parkinsonism; Z79.01 Long term (current) use of anticoagulants; I10 Essential (primary) hypertension; Z87.891 Personal history of nicotine dependence; Z86.718 Personal history of other venous thrombosis and embolism; R35.0 Frequency of micturition
CPT/HCPCS: 52287; 00910; J7120; J0585; J2405; J3490

== ENCOUNTER → 2023-02-24 | Outpatient (CLI) | payer MEDICARE, SELFPAY | END | disposition home or self-care (01) | LOC: LAB 15:26 | PROVIDERS: PCP Internal Medicine; Referring Provider Urology; Visit Provider Urology | DX: R35.0 Frequency of micturition (principal) | CPT/HCPCS: 87086 ==